=== PATIENT | male | born 1945 | race Caucasian/White ===

== ENCOUNTER → 2021-01-09 | Outpatient (CLI) | payer MEDICARE, BC, SELFPAY | END | disposition home or self-care (01) | LOC: LABSPEC 10:57 | PROVIDERS: PCP Family Medicine; Referring Provider Physician Assistant Surgical; Visit Provider Physician Assistant Surgical | DX: Z11.52 Encounter for screening for COVID-19 (principal) | CPT/HCPCS: 87635; U0005; U0003 ==

== ENCOUNTER → 2022-02-16 | Outpatient (CLI) | payer MEDICARE, BC, SELFPAY ==
--- NOTE | 2022-02-16 | LES_PTH ---
PATIENT: KATI MILLER LOC: [facility] U#:[id number] AGE/SX: 76/M ROOM: RE02/16/[address]: Dr. Mitchell Velasquez MD : 1945 BED: DIS: 02/16/2022 SPEC #: [id number] RECD: 02/16/22 14:55 STATUS: YUE REQuentin #: [id number] TINA: 02/16/22 00:[address]: Mitchell Velasquez DEPT: SURGICAL PATHOLOGY RECD BY: Bernabe Lux ENTERED: 02/19/22 09:34 SP TYPE: Lesion OTHR DR: Dr. Nguyễn Gomez MD Tissues: Skin of eyelid, NOS Procedures: Special Stain Group I Surgery Specimen Level IV GMS Stain (control) HEADER OPERATION: Right upper lid lesion removal PRE-OP DIAGNOSIS: Right upper lid lesion removal TISSUE SUBMITTED: Right upper lid lesion MICROSCOPIC DIAGNOSIS Right upper lid lesion,biopsy: Consistent with inflamed mildly atypical squamous epithelial lesion in the background of cutaneous horn. Negative for malignancy. See comment. /SJ 02/20/22 COMMENT Special stain for fungi is positive for organisms (yeast) in superficial epithelial layers of cutaneous horn; matched control is appropriate. Bacterial colonization is also noted in the superficial epithelial layers of cutaneous horn. Correlation with clinical findings and appropriate follow up are necessary. MICROSCOPIC DESCRIPTION Slides are reviewed. GROSS DESCRIPTION Received is one container labeled with the patient name and designated right upper lid lesion. The specimen consists of two irregular fragments of leger white skin that measuring 0.3 x 0.3 x 0.1 cm and 0.1 x.0.1 x 0.1 cm. The specimen is totally submitted in one cassette. /HERI:gil 02/19/22 TC:5 CPT:55301, 47896
== END | disposition home or self-care (01) ==
LOC: LABSPEC 15:56
PROVIDERS: PCP Family Medicine; Referring Provider Ophthalmology; Visit Provider Ophthalmology
DX: H02.9 Unspecified disorder of eyelid (principal)
CPT/HCPCS: 88305; 88312

== ENCOUNTER → 2022-10-01 | Outpatient (CLI) | payer MEDICARE, BC, SELFPAY ==
[2022-10-01 10:10] LABS: Absolute Lymphocyte Count 1.82 X10^3/uL (0.83-4.51); Absolute Neutrophil Count 3.3 X10^3/uL (2.0-7.7); Basophil# 0.05 X10^3/uL; Basophil% 0.8 % (0-1); Eosinophil# 0.16 X10^3/uL; Eosinophils% 2.7 % (0-5); Hematocrit 44.7 % (40-54); Hemoglobin 14.8 g/dL (13.0-16.5); Lymphocyte # 1.82 X10^3/ul (0.83-4.51); Lymphocyte % 30.8 % (19-41); Mean Corp Hgb Conc 33.1 g/dL (32-36); Mean Corpuscular Hgb 30.5 pg (27.0-32.0); Mean Corpuscular Volume 92.2 fL (80-94); Mean Platelet Vol. 9.2 fl (6.2-12.0); Monocyte# 0.55 X10^3/uL; Monocyte% 9.3 % (0-10); NRBC Flagged by Analyzer 0 % (0-5); Neutrophil # 3.29 X10^3/uL (2.7-7.7); Neutrophil % 55.9 % (47-70); Platelet Count 207 K/mm3 (150-450); RBC Distribution Width CV 13.2 % (11.6-14.6); RBC Distribution Width SD 45.2 fl (35.1-43.9); Red Blood Count 4.85 M/mm3 (4.6-6.2); White Blood Count 5.9 K/mm3 (4.4-11.0)
[2022-10-01 10:34] LABS: Vitamin D,25 Hydroxy 88.7 ng/mL
[2022-10-01 10:49] LABS: ALB/GLOB Ratio 0.9 RATIO (0.9-2.4); AST(SGOT) 16 U/L (15-37); Alanine Aminotransfer ALT/SGPT 20 U/L (16-61); Albumin, Serum 3.4 g/dL (3.2-5.0); Alkaline Phosphatase 80 U/L (45-117); Anion Gap 4 (5-15); BUN 13 mg/dL (7-18); BUN/Creat Ratio 11.7 RATIO (10-20); Chloride 108 mmol/L (98-107); Cholesterol 249 mg/dL (200); Creatinine, Serum 1.11 mg/dL (0.70-1.30); EST Glomerular Filtration Rate 68 mL/min (>60); Est Glom Filt Rate - Afr Amer 83 mL/min (>60); Globulin 3.9 g/dL (2.2-4.2); Glucose 96 mg/dL (74-106); High Density Lipoprotein 55 mg/dL; PSA,Total - Annual Screen 0.68 ng/mL (0.00-4.00); Potassium 3.8 mmol/L (3.5-5.1); Protein, Total 7.3 g/dL (6.4-8.2); Sodium Level 139 mmol/L (136-145); Thyroid Stim Hormone (TSH) 0.87 uIU/mL (0.358-3.74); Triglycerides 75 mg/dL; Very Low Density Lipoprotein 15 mg/dL (5-40)
== END | disposition home or self-care (01) ==
LOC: LAB 08:45
PROVIDERS: PCP Internal Medicine; Referring Provider Internal Medicine; Visit Provider Internal Medicine
DX: E78.5 Hyperlipidemia, unspecified (principal); K21.9 Gastro-esophageal reflux disease without esophagitis; E55.9 Vitamin D deficiency, unspecified; Z12.5 Encounter for screening for malignant neoplasm of prostate
CPT/HCPCS: 36415; 80053; 80061; 82306; 84153; 84443; 85025; G0103

== ENCOUNTER → 2022-10-19 | Outpatient (CLI) | payer MEDICARE, BC, SELFPAY ==
[2022-10-19 10:00] LABS: Cholesterol 222 mg/dL (200); High Density Lipoprotein 56 mg/dL; Thyroid Stim Hormone (TSH) 0.88 uIU/mL (0.358-3.74); Triglycerides 68 mg/dL; Very Low Density Lipoprotein 14 mg/dL (5-40)
[2022-10-25 12:09] LABS: Testosterone, % Free 1.69 % (1.50-4.20); Testosterone, Free 10.31 ng/dL (5.00-21.00); Testosterone, Total 610 ng/dL (264-916)
== END | disposition home or self-care (01) ==
LOC: LAB 08:56
PROVIDERS: PCP Internal Medicine; Referring Provider Internal Medicine; Visit Provider Internal Medicine
DX: R53.83 Other fatigue (principal); E78.5 Hyperlipidemia, unspecified
CPT/HCPCS: 36415; 80061; 84402; 84403; 84443

== ENCOUNTER → 2023-08-08 | Outpatient (CLI) | payer MEDICARE, BC, SELFPAY | END | disposition home or self-care (01) | LOC: LABSPEC 15:18 | PROVIDERS: PCP Internal Medicine; Visit Provider Otolaryngology Otolaryngology/Facial Plastic Surgery | DX: J32.9 Chronic sinusitis, unspecified (principal) | CPT/HCPCS: 87070; 87205 ==

== ENCOUNTER → 2023-10-07 | Outpatient (CLI) | payer MEDICARE, BC, SELFPAY ==
[2023-10-07 09:03] LABS: Absolute Lymphocyte Count 2.41 X10^3/uL (0.83-4.51); Absolute Neutrophil Count 2.7 X10^3/uL (2.0-7.7); Basophil# 0.04 X10^3/uL; Basophil% 0.7 % (0-1); Eosinophils% 3.4 % (0-5); Hemoglobin 14.3 g/dL (13.0-16.5); Lymphocyte # 2.41 X10^3/ul (0.83-4.51); Lymphocyte % 40.4 % (19-41); Mean Corp Hgb Conc 33.3 g/dL (32-36); Mean Corpuscular Hgb 31.2 pg (27.0-32.0); Mean Corpuscular Volume 93.9 fL (80-94); Mean Platelet Vol. 9.3 fl (6.2-12.0); Monocyte# 0.62 X10^3/uL; Monocyte% 10.4 % (0-10); NRBC Flagged by Analyzer 0 % (0-5); Neutrophil # 2.67 X10^3/uL (2.7-7.7); Neutrophil % 44.8 % (47-70); Platelet Count 208 K/mm3 (150-450); RBC Distribution Width CV 13.3 % (11.6-14.6); RBC Distribution Width SD 45.9 fl (35.1-43.9); Red Blood Count 4.58 M/mm3 (4.6-6.2)
[2023-10-07 09:31] LABS: Vitamin D,25 Hydroxy 75.4 ng/mL
[2023-10-07 09:36] LABS: ALB/GLOB Ratio 0.9 RATIO (0.9-2.4); AST(SGOT) 10 U/L (15-37); Alanine Aminotransfer ALT/SGPT 20 U/L (16-61); Albumin, Serum 3.4 g/dL (3.2-5.0); Alkaline Phosphatase 77 U/L (45-117); Anion Gap 4 (5-15); BUN 14 mg/dL (7-18); BUN/Creat Ratio 13.3 RATIO (10-20); Calcium,Total 8.7 mg/dL (8.5-10.1); Chloride 107 mmol/L (98-107); Cholesterol 237 mg/dL (200); Creatinine, Serum 1.05 mg/dL (0.70-1.30); EST Glomerular Filtration Rate 73 mL/min (>60); Est Glom Filt Rate - Afr Amer 88 mL/min (>60); Globulin 3.7 g/dL (2.2-4.2); Glucose 94 mg/dL (74-106); High Density Lipoprotein 54 mg/dL; PSA,Total - Annual Screen 0.71 ng/mL (0.00-4.00); Potassium 3.9 mmol/L (3.5-5.1); Protein, Total 7.1 g/dL (6.4-8.2); Sodium Level 138 mmol/L (136-145); Thyroid Stim Hormone (TSH) 0.92 uIU/mL (0.358-3.74); Triglycerides 84 mg/dL; Very Low Density Lipoprotein 17 mg/dL (5-40)
== END | disposition home or self-care (01) ==
LOC: LAB 08:06
PROVIDERS: PCP Internal Medicine; Referring Provider Internal Medicine; Visit Provider Internal Medicine
DX: E78.5 Hyperlipidemia, unspecified (principal); K21.9 Gastro-esophageal reflux disease without esophagitis; Z13.220 Encounter for screening for lipoid disorders; E55.9 Vitamin D deficiency, unspecified; Z12.5 Encounter for screening for malignant neoplasm of prostate
CPT/HCPCS: 36415; 80053; 80061; 82306; 84153; 84443; 85025; G0103

== ENCOUNTER → 2023-10-11 | Outpatient (CLI) | payer MEDICARE, BC, SELFPAY ==
--- NOTE | 2023-10-11 09:51 | VDLE_ITS ---
Reason For Study: EDEMA RIGHT LEFT GSV is normal. GSV is normal. CFV is compressible, spontaneous, phasic, CFV is compressible, spontaneous, phasic, competent and demonstrates normal competent, and demonstrates normal augmentation. augmentation. FV is compressible, spontaneous, phasic, FV is compressible, spontaneous, phasic, competent and demonstrates normal competent and demonstrates normal augmentation. augmentation. POP V is compressible, spontaneous, phasic, POP V is compressible, spontaneous, phasic, competent and demonstrates normal competent and demonstrates normal augmentation. augmentation. T/P Trunk is compressible. T/P Trunk is compressible. PTV is compressible. PTV is compressible. RT PerV is compressible. LT PerV is compressible. Procedure This is a venous duplex using B-mode, color flow and spectral Doppler. Exam performed in department. A preliminary report was called and/or faxed to Dr. Kelley @ [phone] @ 10:45 am. VL/Venous Duplex US - Richard Extrem Interpretation Summary Deep veins of the bilateral lower extremities are patent and compressible segme ntally. There is no evidence of bilateral lower extremity deep vein thrombosis. The bilateral great saphenous veins appear patent and compressible segmentally. Ordering Physician: Elliot Kelley Referring Physician: Mirian Ayoub Performed By: Amber Santana, CHRISTEN, RVT
--- NOTE | 2023-10-11 09:54 | ART_ITS ---
Reason For Study: PVD Procedure A bilateral lower extremity continuous wave Doppler with analog waveform analysis,segmental pressures,and ankle brachial indexes without exercise. Left Segmental Pressures Left brachial= 136mmHg. Left posterior tibial artery = 156mmHg. Left dorsalis pedis artery = 152mmHg. The left posterior tibial artery waveforms are triphasic. The left dorsalis pedis waveforms are triphasic. Right Segmental Pressures Right brachial= 139mmHg. Right posterior tibial artery = 148mmHg. Right dorsalis pedis artery = 146mmHg. The right posterior tibial artery waveforms are triphasic. The right dorsalis pedis waveforms are triphasic. Indices The right resting ankle brachial index is 1.06. The right ankle brachial index by the posterior tibial artery is 1.06. The right ankle brachial index by the dorsalis pedis is 1.05. The left resting ankle brachial index is 1.12. The left ankle brachial index by the posterior tibial artery is 1.12. The left ankle brachial index by the dorsalis pedis is 1.09. VL/Lower Ext Art Exam w/o Exercis Interpretation Summary Right MARY 1.06, normal. Doppler/PVR waveforms of the right leg normal at rest. Left MARY 1.12, normal. Doppler/PVR waveforms of the left leg normal at rest. Ordering Physician: Elliot Kelley Referring Physician: Mirian Ayoub Performed By: Amber Santana RVT, RDCS
== END | disposition home or self-care (01) ==
LOC: CVS 09:46
PROVIDERS: PCP Internal Medicine; Referring Provider Student in an Organized Health Care Education/Training Program; Visit Provider Student in an Organized Health Care Education/Training Program
DX: I87.2 Venous insufficiency (chronic) (peripheral) (principal); R60.0 Localized edema; I73.89 Other specified peripheral vascular diseases; G60.8 Other hereditary and idiopathic neuropathies
CPT/HCPCS: 93923; 93970

== ENCOUNTER → 2024-03-13 | Outpatient (CLI) | payer MEDICARE, BC, SELFPAY ==
[2024-03-13 10:16] LABS: AST(SGOT) 17 U/L (15-37); Alanine Aminotransfer ALT/SGPT 21 U/L (16-61); Albumin, Serum 3.5 g/dL (3.2-5.0); Alkaline Phosphatase 70 U/L (45-117); Anion Gap 3 (5-15); BUN 10 mg/dL (7-18); BUN/Creat Ratio 9.8 RATIO (10-20); Calcium,Total 9.1 mg/dL (8.5-10.1); Chloride 110 mmol/L (98-107); Cholesterol 235 mg/dL (200); Creatinine, Serum 1.02 mg/dL (0.70-1.30); EST Glomerular Filtration Rate 75 mL/min (>60); Est Glom Filt Rate - Afr Amer 91 mL/min (>60); Globulin 3.5 g/dL (2.2-4.2); Glucose 92 mg/dL (74-106); High Density Lipoprotein 63 mg/dL; Sodium Level 142 mmol/L (136-145); Triglycerides 79 mg/dL; Very Low Density Lipoprotein 16 mg/dL (5-40)
== END | disposition home or self-care (01) ==
LOC: LAB 08:58
PROVIDERS: PCP Internal Medicine; Referring Provider Internal Medicine; Visit Provider Internal Medicine
DX: Z13.220 Encounter for screening for lipoid disorders (principal); E78.5 Hyperlipidemia, unspecified
CPT/HCPCS: 36415; 80053; 80061

== ENCOUNTER → 2024-03-31 | Outpatient (CLI) | payer MEDICARE, BC, SELFPAY ==
--- NOTE | 2024-03-31 08:43 | RAD_ITS ---
STUDY: X-RAY CHEST REASON FOR EXAM: Male, 78 years old. Acute URI TECHNIQUE: PA and lateral views of the chest. COMPARISON: 04/12/2006 FINDINGS: The lungs are clear and expanded. There is no demonstrated pleural abnormality. Normal size heart. Normal mediastinum and lacy. Normal visualized pulmonary arteries. Normal visualized aortic arch and descending thoracic aorta. Normal visualized thoracic spine. Normal visualized ribs, clavicles, and shoulders. There is no demonstrated abnormality of the visualized soft tissue structures of the upper abdomen. RAD/Chest PA and Lateral IMPRESSION: Normal x-ray examination of the chest. Electronically Signed: Trell Moise MD at 14:03 EST ,
[2024-03-31 08:58] LABS: Erythrocyte Sedimentation Rate 3 mm/hr (0-20)
[2024-03-31 09:00] LABS: Absolute Lymphocyte Count 2.05 X10^3/uL (0.83-4.51); Absolute Neutrophil Count 3.7 X10^3/uL (2.0-7.7); Basophil# 0.05 X10^3/uL; Basophil% 0.7 % (0-1); Eosinophil# 0.18 X10^3/uL; Eosinophils% 2.7 % (0-5); Hematocrit 44.2 % (40-54); Hemoglobin 14.7 g/dL (13.0-16.5); Lymphocyte # 2.05 X10^3/ul (0.83-4.51); Lymphocyte % 30.6 % (19-41); Mean Corp Hgb Conc 33.3 g/dL (32-36); Mean Corpuscular Hgb 31.7 pg (27.0-32.0); Mean Corpuscular Volume 95.3 fL (80-94); Mean Platelet Vol. 8.6 fl (6.2-12.0); Monocyte# 0.64 X10^3/uL; Monocyte% 9.6 % (0-10); NRBC Flagged by Analyzer 0 % (0-5); Neutrophil % 55.2 % (47-70); Platelet Count 223 K/mm3 (150-450); RBC Distribution Width CV 13.2 % (11.6-14.6); RBC Distribution Width SD 45.9 fl (35.1-43.9); Red Blood Count 4.64 M/mm3 (4.6-6.2); White Blood Count 6.7 K/mm3 (4.4-11.0)
[2024-03-31 09:15] LABS: ALB/GLOB Ratio 1.1 RATIO (0.9-2.4); AST(SGOT) 12 U/L (15-37); Alanine Aminotransfer ALT/SGPT 16 U/L (16-61); Albumin, Serum 3.9 g/dL (3.2-5.0); Alkaline Phosphatase 76 U/L (45-117); Anion Gap 2 (5-15); BUN 10 mg/dL (7-18); BUN/Creat Ratio 8.9 RATIO (10-20); CRP < 2.90 mg/L (0.0-3.0); Calcium,Total 9.3 mg/dL (8.5-10.1); Chloride 103 mmol/L (98-107); Creatinine, Serum 1.12 mg/dL (0.70-1.30); EST Glomerular Filtration Rate 67 mL/min (>60); Est Glom Filt Rate - Afr Amer 81 mL/min (>60); Globulin 3.7 g/dL (2.2-4.2); Glucose 100 mg/dL (74-106); Potassium 3.9 mmol/L (3.5-5.1); Protein, Total 7.6 g/dL (6.4-8.2); Sodium Level 136 mmol/L (136-145)
== END | disposition home or self-care (01) ==
LOC: LAB 08:33
PROVIDERS: PCP Internal Medicine; Referring Provider Internal Medicine; Visit Provider Internal Medicine
DX: J06.9 Acute upper respiratory infection, unspecified (principal)
CPT/HCPCS: 36415; 71046; 80053; 85025; 85652; 86140

== ENCOUNTER → 2024-05-18 | Outpatient (CLI) | payer MEDICARE, BC, SELFPAY ==
--- NOTE | 2024-05-18 13:19 | STRESSREP ---
Stress Test Report Exercise myocardial perfusion stress test. 79-year-old male with a history of hypertension and fatigue Stress protocol: Resting EKG demonstrates sinus bradycardia with a rate of 48 bpm resting blood pressure is 130/80 mmHg. The patient exercised according to the regular Kush protocol for a total duration of 9 minutes attaining a maximum heart rate of 130 bpm which was 92% of maximum predicted heart rate; the maximum workload was 10.1 metabolic equivalents. At rest there were no ST or T wave changes noted to suggest ischemia and at peak exercise upsloping ST changes only were noted which did not meet the criteria for ischemia. No clinical angina was noted the test was terminated due to the target heart rate being achieved/fatigue. The peak blood pressure was 172/60 mmHg. Rate-pressure product was 22,000. Myocardial perfusion protocol. 11 point mCi of technetium 99m sestamibi was injected at rest. The patient exercised according to regular Kush protocol for total duration of 9 minutes and at peak exercise 34.6 mCi of technetium 99m sestamibi was injected stress images were obtained stress and rest images were reconstructed in comparing the short axis vertical long and horizontal long axis. Gated images were also obtained. Perfusion SPECT analysis: Review of the stress images demonstrate normal uptake of tracer noted in all areas of the myocardium. There is an area in the apex of the ventricle with reduced perfusion which normalizes on rest suggestive of apical ischemia at a high workload. the resting images similarly demonstrate normal uptake of tracer noted in all areas of the myocardium. No previous infarct is noted. Gated SPECT analysis: The gated ejection fraction is 63%. Conclusion: Mildly abnormal exercise myocardial perfusion stress test at a high workload with evidence of apical ischemia Preserved ejection fraction.
== END | disposition home or self-care (01) ==
LOC: CVS 06:24
PROVIDERS: PCP Internal Medicine; Referring Provider Internal Medicine; Visit Provider Internal Medicine
DX: I10 Essential (primary) hypertension (principal); E78.5 Hyperlipidemia, unspecified; R53.83 Other fatigue; R94.31 Abnormal electrocardiogram [ECG] [EKG]
CPT/HCPCS: 78452; 93017; A9500; A4216

== ENCOUNTER → 2024-05-20 | Outpatient (CLI) | payer MEDICARE, BC, SELFPAY ==
[2024-05-20 17:11] LABS: Absolute Neutrophil Count 4.1 X10^3/uL (2.0-7.7); Basophil# 0.04 X10^3/uL; Basophil% 0.6 % (0-1); Eosinophil# 0.14 X10^3/uL; Hematocrit 41.6 % (40-54); Lymphocyte % 28.7 % (19-41); Mean Corp Hgb Conc 33.7 g/dL (32-36); Mean Corpuscular Hgb 31.7 pg (27.0-32.0); Mean Corpuscular Volume 94.3 fL (80-94); Mean Platelet Vol. 8.8 fl (6.2-12.0); Monocyte# 0.64 X10^3/uL; Monocyte% 9.2 % (0-10); NRBC Flagged by Analyzer 0 % (0-5); Neutrophil # 4.12 X10^3/uL (2.7-7.7); Neutrophil % 59.1 % (47-70); Platelet Count 213 K/mm3 (150-450); RBC Distribution Width CV 12.9 % (11.6-14.6); Red Blood Count 4.41 M/mm3 (4.6-6.2)
[2024-05-20 17:32] LABS: Anion Gap 5 (5-15); BUN 14 mg/dL (7-18); BUN/Creat Ratio 12.8 RATIO (10-20); Calcium,Total 9.2 mg/dL (8.5-10.1); Chloride 102 mmol/L (98-107); Creatinine, Serum 1.09 mg/dL (0.70-1.30); EST Glomerular Filtration Rate 69 mL/min (>60); Est Glom Filt Rate - Afr Amer 84 mL/min (>60); Glucose 97 mg/dL (74-106); Potassium 4.1 mmol/L (3.5-5.1); Sodium Level 135 mmol/L (136-145)
== END | disposition home or self-care (01) ==
LOC: LAB 16:36
PROVIDERS: PCP Internal Medicine; Referring Provider Internal Medicine Cardiovascular Disease; Visit Provider Internal Medicine Cardiovascular Disease
DX: R94.39 Abnormal result of other cardiovascular function study (principal)
CPT/HCPCS: 36415; 80048; 85025

== ENCOUNTER 2024-05-22 07:59 | Day surgery (SDC) | payer MEDICARE, BC, SELFPAY ==
[2024-05-21 09:54] VITALS: BMI 24.3
--- NOTE | 2024-05-22 15:42 | CL.D_ITS ---
Patient Name: KATI MILLER Study Date: 05/22/2024 Performing: Robby Hastings MD Ht: 70 inches 177.8 cm : 1945 Wt: 170.2 lbs 77.11 kg Age: 79 Gender: male BSA: 1.95 PROCEDURE(S) PERFORMED DC01-(02390)LHC/COR/LV CLINICAL PROFILE AND INDICATIONS Indications: Suspected CAD Heart Failure: None Stress/Imaging Date: 05/13/24 CAD Presentations: Stable angina. CONCLUSIONS Non obstructive coronary arteries Normal LV size, wall motion,and systolic function RECOMMENDATIONS Medical therapy DESCRIPTION OF PROCEDURE The patient arrived to the procedure lab. The risks and benefits of the procedure as well as a full description of our services here and current unavailability of surgical backup were fully explained to the patient and/or their significant other prior to the catheterization. The Timeout was completed, verifying the correct patient and procedure. The patient's procedural site was prepped and draped in the usual fashion. Local anesthetic was given subcutaneously to right groin region with Lidocaine 2%. Using a modified Seldinger technique, arterial access was obtained via the right radial artery, a 6Fr sheath was inserted. Left Coronary Artery selective angiography was performed in multiple views using a 5 Fr. 4.0 [place] catheter. Right Coronary Artery selective angiography was then performed in multiple views using a 5 Fr. 4.0 [place] catheter. Left Ventriculography was performed in PHAN projection using a 5 Fr. Pigtail catheter. LV to AO pullback pressures were then recorded.The arterial sheath was pulled and a TR Band was applied for hemostasis 10 ml of air CORONARY ANGIOGRAPHY DOMINANCE: Right Dominant LEFT HEART ASSESSMENT Left Ventricular Ejection Fraction: by LV Gram 70 % Normal LV wall motion Normal Left Ventricular systolic function LEFT MAIN: Angiographically normal LEFT ANTERIOR DESCENDING ARTERY: Mild luminal irregularities less than 30% CIRCUMFLEX ARTERY: Mild luminal irregularities RIGHT CORONARY ARTERY: Angiographically normal COMPLICATIONS No Complications PROCEDURE MEDICATIONS Fentanyl 50 mcg IV Versed 1 mg IV Versed 1 mg IV Oxygen: 2 L/min via nasal cannula Aspirin (325mg) 1 Tabs PO @ 05/22/2024 08:15:47 Heparin given IA 05/22/2024 09:42:28 SUMMARY OF HEMODYNAMIC DATA Time AIR REST ECG 08:18:09 AO 133/54 (74) SA 09:53:34 AO 111/63 (81) 09:54:16 LV 124/3, 9 09:58:01 LV 129/8, 12 09:58:09 LV 129/12, 23 09:58:37 LV 124/10, 14 09:58:45 LVp 121/9, 13 09:58:49 AOp 115/61 (83) 09:58:56 Signed By Robby Hastings MD On 05/22/2024 15:41:56 Robby Hastings MD
== END 2024-05-22 11:59 | disposition home or self-care (01) ==
PROVIDERS: PCP Internal Medicine; Referring Provider Internal Medicine Cardiovascular Disease; Visit Provider Internal Medicine Cardiovascular Disease
DX: I20.9 Angina pectoris, unspecified (principal); R06.02 Shortness of breath; I10 Essential (primary) hypertension; E78.5 Hyperlipidemia, unspecified; R94.39 Abnormal result of other cardiovascular function study; K21.9 Gastro-esophageal reflux disease without esophagitis; Z79.899 Other long term (current) drug therapy
CPT/HCPCS: 93458; 99152; 99153; Q9967; C1769; C1894

== ENCOUNTER → 2024-10-16 | Outpatient (CLI) | payer MEDICARE, BC, SELFPAY ==
--- OUTSIDE RECORDS SUMMARY | 2024-10-16 09:02 | XMS RPT_ITS | CCD ---
Author Organization [facility] CliniSyct Care Team Providers Care Applications Systems Analyst Name Role Phone Florentin Arceo MD Primary Care Provider [phone] Dr. Mirian Ayoub Primary Care Provider Dr. Mirian Ayoub Attending Provider [phone] Unavailable Primary Care Provider Unavaildora Ayoub MD, Dr. Vela Primary Care Provider [phone] Dr. Mirian Ayoub MD Referring Provider Venkata WELLINGTON, Dr. Bustamante Attending Provider Dr. Robby Hastings MD Referring Provider Dr. Mirian Ayoub MD Attending Provider Mirian Ayoub Attending Unavailable Mega, Mirian Primary Care Unavailable Mega, Mirian Attending Unavailable Mega, Mirian Primary Care Unavailable MegaMirian Attending Unavailable Mega, Mirian Referring Unavailable Mega, Mirian Primary Care Unavailable Mega, Mirian Primary Care Unavailable Venkata, Robby Referring Unavailable Venkata, Robby Attending Unavailable Elliot Kelley Referring Unavailable Mega, Mirian Primary Care Unavailable Jon Melton Attending Unavailable Mega, Mirian Primary Care Unavailable MegaMirian Consulting Unavailable Venkata, Robby Attending Unavailable Mega, Mirian Referring Unavailable Mega, Mirian Referring Unavailable Austin Solano Attending Unavailable Mega, Mirian Primary Care Unavailable Mega, Mirian Primary Care Unavailable Venkata, [place] Attending Unavailable Venkata, [place] Referring Unavailable Mega, Mirian Primary Care Unavailable MegaMirian Attending Unavailable Mega, Mirian Referring Unavailable Mega, Mirian Primary Care Unavailable Mega, Mirian Attending Unavailable Mega, Mirian Referring Unavailable Mega, Mirian Primary Care Unavailable Mega, Mirian Attending Unavailable Mega, Mirian Attending Unavailable Mega, Mirian Referring Unavailable Mega, Mirian Primary Care Unavailable Mega, Mirian Referring Unavailable Mega, Mirian Attending Unavailable Mega, Mirian Primary Care Unavailable Elliot Kelley Referring Unavailable Elliot Kelley Attending Unavailable Mega, Mirian Primary Care Unavailable Mega, Mirian Primary Care Unavailable Mega, Mirian Attending Unavailable Mega, Mirian Primary Care Unavailable Mega, Mirian Attending Unavailable Mega, Mirian Primary Care Unavailable Venkata, [place] Attending Unavailable Mega, Mirian Referring Unavailable Mega, Mirian Attending Unavailable Mega, Mirian Primary Care Unavailable Mega, Mirian Attending Unavailable Mega, Mirian Primary Care Unavailable Allergies Allergy Classification Reported Allergen(s) Allergy Type Date of Onset Reaction(s) Facility (2 sources) Amitriptyline Drug Allergy 9 [facility] Work Phone: (2 sources) Citalopram Drug Allergy 7 Diarrhea [facility] (2 sources) cyclobenzaprine Drug Allergy 9 [facility] Work Phone: (2 sources) DULoxetine Drug Allergy 9 [facility] Work Phone: (2 sources) gabapentin Drug Allergy 7 [facility] (2 sources) meloxicam Drug Allergy 9 [facility] Work Phone: (2 sources) metaxalone Drug Allergy 9 [facility] Work Phone: (2 sources) pregabalin Drug Allergy 7 Intolerance [facility] (2 sources) Propoxyphene N-Acetaminophen Propensity to adverse reactions 9 [facility] Work Phone: [phone] Medications Current Medications Medication Drug Class(es) Dates Sig (Normalized) Sig (Original) acetaminophen 500 mg oral tablet (5 sources) Start: 04-04-2022 take 1 tablet by mouth every six hours as needed for pain Acetaminophen (Tylenol Extra Strength) 500 mg tablet Active 500 mg PO EVERY 6 HOURS as needed for fever or pain April 04, 2022 1:00am Acetaminophen 50 0 mg cap Take 500 mg by mouth as needed. 0 Active Comment on above: Take 500 mg by mouth as needed. atorvastatin 10 mg oral tablet (3 sources) HMG-CoA Reductase Inhibitor Start: 2 take 0.5 tablet by mouth three times weekly atorvastatin (LIPITOR) 10 mg tablet Indications: Mixed hyperlipidemia TAKE ONE-HALF TABLET BY MOUTH 3 TIMES A WEEK 18 tablet 3 12/25/2021 Active Start: 11-24-2021 take 0.5 tablet by m outh three times weekly atorvastatin (LIPITOR) 10 mg tablet Indications: Mixed hyperlipidemia TAKE ONE-HALF TABLET BY MOUTH 3 TIMES A WEEK 18 tablet 3 11/24/2021 Active Start: 12-19-2020 End: 11-23-2021 take 0.5 tablet by mouth three times weekly atorvastatin (LIPITOR) 10 mg tablet Indications: Mixed hyperlipidemia TAKE ONE-HALF TABLET BY MOUTH 3 TIMES A WEEK 18 tablet 3 12/19/2020 11/23/2021 Discontinued Comment on above: TAKE ONE-HALF TABLET BY MOUTH 3 TIMES A WEEK betaine hydrochloride 162 mg / bromelains 125 mg / pancreatin 250 mg / papain 125 mg / pepsin a 65 mg oral capsule (1 source) Methylating Agent Start: 5 Pancreat-Bet Lqy-Vra-Uiwl-Pap (Super Enzyme) 531-771-30-125 mg capsule Active NMA PO DAILY May 20, 2024 1:00am betamethasone 0.5 mg/ml / clotrimazole 10 mg/ml topical cream (1 source) Azole Antifungal, Corticosteroid Start: 4 Clotrimazole-Bet amethasone 1-0.05 % cream Active 1 NMA TOPICAL TWICE A DAY March 18, 2024 1:00am calcium carb/magnesium ox,carb (LENO-MAG ORAL) (2 sources) take 2 tablets by mouth once daily at bedtime calcium carb/magnesium ox,carb (LENO-MAG ORAL) Take 2 tablets by mouth daily at bedtime. Active take 2 tablets by mo uth once daily at bedtime calcium carb/magnesium ox,carb (LENO-MAG ORAL) Take 2 tablets by mouth daily at bedtime. 0 Active Comment on above: Take 2 tablets by mo uth daily at bedtime. Chondroitin Sulfates / Glucosamine (6 sources) Start: 04-04-2022 osteo biflex Active PO 2 times daily April 04, 2022 1:00am Start: 01-23-2007 Glucosamine-Ch ondroit-Vit C-Mn (GLUCOSAMINE 1500 COMPLEX) 500-400 mg ORAL Cap 0 01/23/2007 Active Fish Oils (4 sources) Start: 04-04-2022 fish oil Activ e PO 1 time daily April 04, 2022 1:00am lactobacillus combination no.8 (ADULT PROBIOTIC) 3 billion cell cap (2 sources) Start: 08-08-2015 lactobacillus combination no.8 (ADULT PROBIOTIC) 3 billion cell cap Take 1 capsule by mouth once daily. 0 08/08/2015 Active Comment on above: Take 1 capsule by mo [facility] once daily. [place]-3 Fatty Acids (EPA) 500 mg ORAL Cap (2 sources) Start: 01-23-2007 [place]-3 Fatty Acids (EPA) 500 mg ORAL Cap Take by mouth. 0 01/23/2007 Active Comment on above: Take by mouth. polyethylene glycol 3350 18440 mg powder for oral solution (1 source) Osmotic Laxative Start: 03-18-2024 Polyethylene Glycol 3350 (Miralax) 17 gram/dose powder Active 4 g PO daily March 18, 2024 1:00am traZODone hydrochloride 100 mg oral tablet (13 sources) Serotonin Reuptake Inhibitor Start: 10-15-2022 End: 05-28-2024 Trazodone 100 mg tablet Active 50 mg PO DAILY May 28, 2024 10:00am Start: 10-15-2022 End: 04-15-2023 take 50 mg by mouth once daily Trazodone Active 50 MG PO DAILY April 15, 2023 12:06pm Start: 04-04-2022 End: 10-15-2022 take 1 tablet by mouth once daily Trazodone 50 mg tablet Discontinued 50 mg PO DAILY April 04, 2022 1:00am October 15, 2022 9:00am Start: 12-25-2021 take 1 tablet by gwen once daily at bedtime traZODone (DESYREL) 100 mg tablet Indications: Insomnia, unspecified type Take 1 tablet by mouth daily at bedtime. 90 tablet 3 12/25/2021 Active Start: 12-19-2020 take 1 tablet by gwen th once daily at bedtime traZODone (DESYREL) 100 mg tablet Indications: Insomnia, unspecified type Take 1 tablet by mouth daily at bedtime. 90 tablet 3 12/19/2020 Active Comment on above: Take 1 tablet by gwen th daily at bedtime. vit K2 with D3 (4 sources) Start: 04-04-2022 vit K2 with D3 Active PO 1 time daily April 04, 2022 1:00am Vitamin B Comp And C No.3 (B Complex Plus Vitamin C) 67-97-97-5-300 mg capsule (1 source) Start: 10-17-2023 Vitamin B Comp And C No.3 (B Complex Plus Vitamin C) 24-08-07-5-300 mg capsule Active 1 NMA PO DAILY October 17, 2023 12:00am give with food (meal/snack) Completed/Discontinued Medications Medication Drug Class(es) Dates Sig (Normalized) Sig (Original) aspirin 81 mg chewable tablet (4 sources) Platelet Aggregation Inhibitor, Nonsteroidal Anti-inflammatory Drug Start: 07-04-2013 End: 04-04-2022 take 1 tablet by mouth once daily Aspirin 81 MG tablet,chewable Discontinued 81 mg PO DAILY@0800 July 04, 2013 12:00am April 04, 2022 5:00pm azithromycin 250 mg oral tablet (2 sources) Macrolide Antimicrobial Start: 05-28-2024 End: 07-02-2024 Azithromycin 250 mg tablet Discontinued 0 PO .COMPLEX May 28, 2024 1:00am July 02, 2024 9:02am For 250 mg dose pack: take 500 mg today (day 1), then 250 mg for 4 days (days 2-5) PO Start: 03-25-2024 End: 05-19-2024 Azithromycin (Zithromax) 250 mg tablet Discontinued 0 PO .COMPLEX March 25, 2024 1:00am May 19, 2024 1:08pm For 250 mg dose pack: take 500 mg today (day 1), then 250 mg for 4 days (days 2-5) PO cephalexin 500 mg oral capsule (4 sources) Cephalosporin Antibacterial Start: 07-04-2013 End: 04-04-2022 take 1 capsule by mouth twice daily Cephalexin (Keflex) 500 MG capsule Discontinued 500 mg PO TWICE A DAY July 04, 2013 12:00am April 04, 2022 5:01pm fluorouracil 50 mg/ml topical cream (1 source) Nucleoside Metabolic Inhibitor Start: 12-19-2020 Fluorouracil 5 % cream Apply to affected area twice daily. To back of scalp for 2 weeks, as directed. 0 12/19/2020 Active Comment on above: Apply to affected ar ea twice daily. To back of scalp for 2 weeks, as directed. hydroCHLOROthiazide 12.5 mg / lisinopril 10 mg oral tablet (1 source) Thiazide Diuretic, Angiotensin Converting Enzyme Inhibitor Start: 05-14-2024 End: 05-28-2024 Lisinopril-[place] chlorothiazide 10-12.5 mg tablet Discontinued 1 {tbl} PO daily May 14, 2024 1:00am May 28, 2024 10:01am ibuprofen 200 mg oral tablet (1 source) Nonsteroidal Anti-inflammatory Drug take 1 tablet by mouth every six hours as needed ibuprofen (MOTRIN) 200 mg tablet Take 200 mg by mouth every 6 hours as needed. 0 Active Comment on above: Take 200 mg by mouth every 6 hours as needed. lidocaine 0.05 mg/mg medicated patch (1 source) Antiarrhythmic, Amide Local Anesthetic Start: 12-19-2020 lidocaine (LIDODERM) 5 % Indications: Inguinodynia, right Apply 1 application as directed once daily as needed (as directed.). Remove old patch prior to placing new patch. Location: right groin. 15 Patch 0 12/19/2020 Active Comment on above: Apply 1 application as directed once daily as needed (as directed.). Remove old patch prior to placing new patch. Location: right groin. lisinopril 10 mg oral tablet (1 source) Angiotensin Converting Enzyme Inhibitor Start: 05-28-2024 End: 09-16-2024 take 1 tablet by mouth once daily Lisinopril 10 mg tablet Discontinued 10 mg PO daily May 28, 2024 1:00am September 16, 2024 8:05am multivitamin (DAILY MULTIVITAMIN) ORAL Tab (1 source) Start: 01-23-2007 multivitamin (DAILY MULTIVITAMIN) ORAL Tab pravastatin sodium 20 mg oral tablet (4 sources) HMG-CoA Reductase Inhibitor Start: 07-04-2013 End: 04-04-2022 Pravastatin Sodium 20 MG tablet Discontinued 20 mg AT BEDTIME July 04, 2013 12:00am April 04, 2022 5:01pm Start: 07-04-2013 End: 04-04-2022 Pravastatin Sodium Discontin ued 20 MG AT BEDTIME July 04, 2013 12:00am April 04, 2022 5:01pm probiotic (6 sources) Start: 04-15-2023 End: 10-17-2023 probiotic Discontinued PO [facility] 2023 1:00am October 17, 2023 8:04am Start: 04-15-2023 probiotic Acti ve PO April 15, 2023 1:00am Start: 04-04-2022 End: 10-15-2022 probiotic Discontinued PO 1 time daily April 04, 2022 1:00am October 15, 2022 8:35am Start: 04-04-2022 probiotic Acti ve PO 1 time daily April 04, 2022 1:00am pseudoephedrine hydrochloride 30 mg oral tablet (1 source) alpha-Adrenergic Agonist take 1 tablet by mouth every four hours as needed pseudoephedrine (SUDAFED) 30 mg tablet Take 30 mg by mouth every 4 hours as needed. 0 Active Comment on above: Take 30 mg by mouth every 4 hours as needed. raNITIdine 150 mg oral tablet (4 sources) Histamine-2 Receptor Antagonist Start: 014 End: take 1 tablet by mouth twice daily Ranitidine (Zantac) 150 MG tablet Discontinued 150 mg PO TWICE A DAY July 04, 2013 12:00am April 04, 2022 5:01pm Testosterone (4 sources) Androgen Start: 013 End: Testosterone (Androgel) 2.5 GM gel in packet Discontinued 2.5 g TD January 09, 2013 12:00am April 04, 2022 5:01pm Start: 01-09-2013 End: 04-04-2022 Testosterone (Androgel) 2.5 GM gel in packet Discontinued 2.5 GM TD January 09, 2013 12:00am April 04, 2022 5:01pm Zinc Acetate (1 source) Start: 05-20-2024 End: 09-16-2024 zinc acetate Discontinued 1 NMA PO DAILY May 20, 2024 1:00am September 16, 2024 8:07am zolpidem tartrate 5 mg oral tablet (4 sources) gamma-Aminobuty merrick Acid-ergic Agonist Start: 01-09-2013 End: 04-04-2022 take 2 tablets by mouth at bedtime as needed for sleep Zolpidem 5 MG tablet Discontinued 10 mg PO AT BEDTIME NEEDED as needed for Sleep January 09, 2013 12:00am April 04, 2022 5:01pm Start: 01-09-2013 End: 04-04-2022 take 10 mg by mouth at bedtime as needed Zolpidem Discontinued 10 MG PO AT BEDTIME NEEDED January 09, 2013 12:00am April 04, 2022 5:01pm Problems Active Problems Problem Classification Problem Date Documented Da te Episodic/Chronic Administrative/social admission (3 sources) Patient encounter status; Translations: [Persons encountering health services in other specified circumstances] 04-18-2022 Episodic Allergic reactions (2 sources) Contact dermatitis; Translations: [Unspecified contact dermatitis due to other agents] Onset: 8 Resolved: 5 04-03-2021 Episodic Blindness and vision defects (1 source) Disorder of vision; Translations: [Unspecified visual loss] 05-19-2024 Chronic Calculus of urinary tract (2 sources) Kidney stone; Translations: [Calculus of kidney] Resolved: 5 04-03-2021 Episodic Coronary atherosclerosis and other heart disease (1 source) Angina pectoris, unspecified; Translations: [Angina pectoris, unspecified] Onset: 5 Chronic Disorders of lipid metabolism (11 sources) Mixed hyperlipidemia; Translations: [Mixed hyperlipidemia] Onset: 8 Chronic Esophageal disorders (8 sources) Gastroesophageal reflux disease; Translations: [Gastro-esophageal reflux disease without esophagitis] Onset: 5 Resolved: 1 04-18-2022 Chronic Essential hypertension (6 sources) Hypertensive disorder; Translations: [Essential (primary) hypertension] Onset: 5 05-12-2024 Chronic Headache; including migraine (2 sources) Headache; Translations: [New onset headache] 07-02-2024 Episodic Headache; including migraine (2 sources) Headache; including migraine; Translations: [Headache, unspecified] Onset: 5 Hyperplasia of prostate (2 sources) Benign prostatic hyperplasia; Translations: [Benign prostatic hyperplasia without lower urinary tract symptoms] Onset: 7 06-06-2017 Chronic Immunizations and screening for infectious disease (2 sources) Needs influenza immunization; Translations: [Encounter for immunization] 02-25-2023 Episodic Nutritional deficiencies (1 source) Vitamin D deficiency, unspecified; Translations: [Vitamin D deficiency, unspecified] Onset: 5 Chronic Other ear and sense organ disorders (4 sources) Pain of ear structure; Translations: [Otalgia, bilateral] 05-02-2022 Episodic Other ear and sense organ disorders (4 sources) Impacted cerumen; Translations: [Impacted cerumen, bilateral] 05-02-2022 Episodic Other endocrine disorders (3 sources) Male hypogonadism; Translations: [Testicular hypofunction] Onset: 8 Resolved: 8 12-11-2018 Chronic Other endocrine disorders (1 source) Hypogonadism 05-19-2024 Chronic Other gastrointestinal disorders (1 source) Finding of frequency of defecation; Translations: [Change in bowel habit] 05-19-2024 Episodic Other gastrointestinal disorders (1 source) Abdominal bloating; Translations: [Abdominal distension (gaseous)] 05-19-2024 Episodic Other male genital disorders (2 sources) Male erectile dysfunction, unspecified; Translations: [Impotence of organic origin] Onset: 7 12-04-2016 Chronic Other screening for suspected conditions (not mental disorders or infectious disease) (6 sources) Cardiovascular stress test abnormal; Translations: [Abnormal result of other cardiovascular function study] Onset: 5 05-19-2024 Episodic Other skin disorders (1 source) Eruption; Translations: [Rash and other nonspecific skin eruption] 05-19-2024 Episodic Past or Other Problems Problem Classification Problem Date Documented Date Episodic/Chronic Abdominal hernia (2 sources) Umbilical hernia; Translations: [Umbilical hernia without obstruction or gangrene] Onset: 04-09-2006 Resolved: 05-23-2009 05-23-2009 Episodic Abdominal pain (3 sources) Right inguinal pain; Translations: [Right lower quadrant pain] Onset: 07-23-2006 Resolved: 05-23-2009 12-19-2020 Episodic Adjustment disorders (1 source) Adjustment disorder; Translations: [Adjustment disorder, unspecified] Onset: 11-27-2006 Resolved: 02-03-2015 02-03-2015 Chronic Malaise and fatigue (8 sources) Fatigue; Translations: [Other fatigue] Onset: 06-02-2024 10-02-2022 Episodic Other diseases of veins and lymphatics (1 source) Venous insufficiency (chronic) (peripheral); Translations: [Venous insufficiency (chronic) (peripheral)] Onset: 10-19-2023 Episodic Other endocrine disorders (1 source) Testicular hypofunction; Translations: [Testicular hypofunction] Onset: 07-27-2010 Resolved: 02-03-2015 02-03-2015 Chronic Other male genital disorders (1 source) Disorder of male genital organ; Translations: [Disorder of male genital organs, unspecified] Onset: 02-10-2008 Resolved: 05-23-2009 05-23-2009 Episodic Other skin disorders (2 sources) Actinic keratosis; Translations: [Actinic keratosis] Onset: 12-04-2016 12-04-2016 Episodic Other upper respiratory disease (1 source) Allergic rhinitis; Translations: [Allergic rhinitis, unspecified] Resolved: 02-03-2015 02-03-2015 Chronic Other upper respiratory infections (3 sources) Acute upper respiratory infection; Translations: [Acute upper respiratory infection, unspecified] Onset: 04-30-2024 05-19-2024 Episodic Residual codes; unclassified (2 sources) Insomnia; Translations: [Insomnia, unspecified] Onset: 06-19-2007 02-03-2015 Episodic Residual codes; unclassified (2 sources) Reduced libido; Translations: [Decreased libido] Onset: 07-13-2016 07-13-2016 Episodic Spondylosis; intervertebral disc disorders; other back problems (2 sources) Low back pain; Translations: [Lumbago] Onset: 07-30-2006 04-03-2021 Episodic Unclassified (4 sources) Hypogonadism; Translations: [Hypogonadism] Onset: 05-23-2009 Resolved: 02-03-2015 10-15-2022 Results Test Name Value Interpretation Reference Range Facility MR/Moe 09-16-2024 MR/STEVEN.VIRI [facility] [address] [place] [id number] OFFICE VISIT Date of Service: 09/16/24 MR#: [id number] Acct: [id number] Name: KATI MEDLEY Rep #: [id number] : 1945 Provider: Dr. 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 Accompanied by: Self Is patient in pain?: No Allergies No Known Allergies Allergy (Verified 09/16/24 08:01) Medications ???Medication ???Instructions ???Recorded ???Confirmed ???Type acetaminophen 500 mg tablet 500 mg PO Q6H PRN fever or pain 09/16/24 History (Tylenol Extra Strength) fish oil PO 1XD 04/04/22 09/16/24 History osteo biflex PO 2XD 04/04/22 09/16/24 History vit K2 with D3 PO 1XD 04/04/22 09/16/24 History vitamin B comp and C no.3 15 mg-10 1 cap PO DAILY 10/17/23 09/16/24 History mg-50 mg-5 mg-300 mg capsule (B Complex Plus Vitamin C) clotrimazole-betameth asone 1 1 applic topical BID #15 grams 03/0109/16/24 Rx %-0.05 % topical cream polyethylene glycol 3350 17 4 g PO QDAY 03/18/24 09/16/24 Hist ory gram/dose oral powder (Miralax) Pancreat-Bet FQx-nhl-pmbe-pap 250 cap PO DAILY 05/20/24 09/16/24 Hi story mg-162 mg-65 mg-125 mg capsule (Super Enzyme) trazodone 100 mg tablet 50 mg (1/2 x 100 mg) PO DAILY #45 02/20/25 06/11/25 Rx tabs Have you fallen in the past year?: No PFSH Medical History New onset headache Abnormal stress test Hypogonadism Fatigue Hyperlipemia Hypertension Environmental allergies Vision problems GERD (gastroesophageal reflux disease) Kidney stones Surgical History History of hernia surgery Family History Father Cancer internal organs Mother Cancer liver Grandmother Cancer maternal , throat Social History adopted: No household members: spouse housing: condominium current occupational status: employed 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 He is actually been seen several times over the last 6 months, as per the chart. He was experiencing what appeared to be respiratory illness, viral syndrome through the fall and winter. Ultimately however due to ongoing fatigue, tiredness, exertional dyspnea, we proceeded to stress test which was abnormal but heart catheterization did not show any significant obstructive disease fortunately. He has mild hypertension, was on lisinopril 10 mg daily, but stopped on own due to cough. BP AVG at home approx. 130/70. He also uses trazodone 50 mg p.o. nightly as needed for sleep. Walking about 2 miles daily, or will do more physical work daily. Has been following with ENT for long-term, receiving allergy injections. When he was there recently, for his visit, he noted to them that he was having some congestion, frontal headache. They ended up scheduling a procedure and he had apparently balloon dilatation of the sinus openings, with some drainage. Overall he actually feels better he states. Still sounds nasally and congested but less pressure in the forehead he states. Review of systems per chart. Physical exam. Vital signs on chart. EOMI. PERRLA. Sclera are clear. TMs are unremarkable with normal light reflexes. Canals are unremarkable. Posterior pharynx is unremarkable. Good dentition. No cervical or supraclavicular lymph nodes enlarged or tender. No clear thyromegaly. No thyroid nodules readily palpable. Lungs are without wheeze, rhonchi, rales. No E/A changes are heard. Heart is regular. Not tachycardic. No clear murmur, rub, or gallop is identified. The abdomen is soft. Bowel isaura (more content not included)... Normal [facility] CBC W/Diff, Automatedon 04-0 2-2024 Absolute Neut Normal 2.0-7.7 [facility] Comment on above: Result Comment: [facility] DID NOT HAVE LABS Performed By: #### L 500.4050, L100.0100 ####[facility] [id number] [place], [address] HCT Normal 40-54 [facility] Comment on above: Result Comment: [facility] DID NOT HAVE LABS Performed By: #### L 500.4050, L100.0100 ####[facility] [id number] [place], [address] HGB Normal 13.0-16.5 [facility] Comment on above: Result Comment: [facility] DID NOT HAVE LABS Performed By: #### L 500.4050, L100.0100 ####[facility] [id number] [place], [address] MCH Normal 27.0-32.0 [facility] Comment on above: Result Comment: [facility] DID NOT HAVE LABS Performed By: #### L 500.4050, L100.0100 ####[facility] [id number] [place], [address] MCHC Normal 32-36 [facility] Comment on above: Result Comment: [facility] DID NOT HAVE LABS Performed By: #### L 500.4050, L100.0100 ####[facility] [address] [place], [address] MCV Normal 80-94 [facility] Comment on above: Result Comment: [facility] DID NOT HAVE LABS Performed By: #### L 500.4050, L100.0100 ####[facility] [address] [place], [address] NEUT% Normal 47-70 [facility] Comment on above: Result Comment: [facility] DID NOT HAVE LABS Performed By: #### L 500.4050, L100.0100 ####[facility] [address] [place], [address] PLT Normal 150-450 [facility] Comment on above: Result Comment: [facility] DID NOT HAVE LABS Performed By: #### L 500.4050, L100.0100 ####[facility] [address] [place], [address] RBC Normal 4.6-6.2 [facility] Comment on above: Result Comment: [facility] DID NOT HAVE LABS Performed By: #### L 500.4050, L100.0100 ####[facility] [address] [place], [address] RDW CV Normal 11.6-14.6 [facility] Comment on above: Result Comment: [facility] DID NOT HAVE LABS Performed By: #### L 500.4050, L100.0100 ####[facility] [address] [place], [address] RDW SD Normal 35.1-43.9 [facility] Comment on above: Result Comment: [facility] DID NOT HAVE LABS Performed By: #### L 500.4050, L100.0100 ####[facility] [address] [place], [address] WBC Normal 4.4-11.0 [facility] Comment on above: Result Comment: [facility] DID NOT HAVE LABS Performed By: #### L 500.4050, L100.0100 ####[facility] [address] [place], [address] Comprehensive Metabolic Prof ilon 07-08-2024 ALB Normal 3.4-4.8 [facility] Comment on above: Result Comment: [facility] DID NOT HAVE LABS Performed By: #### L 500.4050, L100.0100 ####[facility] [address] [place], [address] ALK PHOS Normal 40-129 [facility] Comment on above: Result Comment: [facility] DID NOT HAVE LABS Performed By: #### L 500.4050, L100.0100 ####[facility] [address] [place], [address] ALT Normal <=46 [facility] Comment on above: Result Comment: [facility] DID NOT HAVE LABS Performed By: #### L 500.4050, L100.0100 ####[facility] [address] [place], [address] AST Normal <=37 [facility] Comment on above: Result Comment: [facility] DID NOT HAVE LABS Performed By: #### L 500.4050, L100.0100 ####[facility] [address] [place], [address] BUN Normal 4-19 [facility] Comment on above: Result Comment: [facility] DID NOT HAVE LABS Performed By: #### L 500.4050, L100.0100 ####[facility] [address] [place], [address] BUN/CRE Normal 10-20 [facility] Comment on above: Result Comment: [facility] DID NOT HAVE LABS Performed By: #### L 500.4050, L100.0100 ####[facility] [address] [place], [address] Calcium Normal 7.6-11.0 [facility] Comment on above: Result Comment: [facility] DID NOT HAVE LABS Performed By: #### L 500.4050, L100.0100 ####[facility] [address] [place], [address] CL Normal 98-108 [facility] Comment on above: Result Comment: [facility] DID NOT HAVE LABS Performed By: #### L 500.4050, L100.0100 ####[facility] [address] [place], [address] CO2 Normal 21.0-32.0 [facility] Comment on above: Result Comment: [facility] DID NOT HAVE LABS Performed By: #### L 500.4050, L100.0100 ####[facility] [address] [place], [address] CREAT,SERUM Normal 0.70-1.20 [facility] Comment on above: Result Comment: [facility] DID NOT HAVE LABS Performed By: #### L 500.4050, L100.0100 ####[facility] [address] [place], [address] eGFR Normal >60 [facility] Comment on above: Result Comment: [facility] DID NOT HAVE LABS Performed By: #### L 500.4050, L100.0100 ####[facility] [address] [place], [address] GAP Normal 5-15 [facility] Comment on above: Result Comment: [facility] DID NOT HAVE LABS Performed By: #### L 500.4050, L100.0100 ####[facility] [address] [place], [address] GLU Normal 70-99 [facility] Comment on above: Result Comment: [facility] DID NOT HAVE LABS Performed By: #### L 500.4050, L100.0100 ####[facility] [address] [place], [address] Potassium Normal 3.3-5.1 [facility] Comment on above: Result Comment: [facility] DID NOT HAVE LABS Performed By: #### L 500.4050, L100.0100 ####[facility] [address] [place], [address] T BILI Normal 0.00-1.30 [facility] Comment on above: Result Comment: [facility] DID NOT HAVE LABS Performed By: #### L 500.4050, L100.0100 ####[facility] [address] [place], [address] T PROT Normal 5.9-8.4 [facility] Comment on above: Result Comment: [facility] DID NOT HAVE LABS Performed By: #### L 500.4050, L100.0100 ####[facility] [address] [place], [address] Comprehensive Metabolic Profil Normal 133-145 [facility] Comment on above: Result Comment: [facility] DID NOT HAVE LABS Performed By: #### L 500.4050, L100.0100 ####[facility] [address] [place], [address] MR/BMS.FRANCHESKABon 07-02-2024 MR/BMS.B [facility] [address] [facility] [place] [address] OFFICE VISIT Date of Service: 07/02/24 MR#: [id number] Acct: [id number] Name: ANGELAKATI TY Nolan Rep #: [id number] : 1945 Provider: Dr. Mirian roy MD Age/Sex: 79/M Location: [facility] Status: Signed Intake Vital Signs 05/28/24 08:11 07/02/24 09:05 Height 5 ft 10 in 5 ft 10 in Weight: 169 lb BMI 24.2 BP 115/70 Blood Pressure Location Lt brachial Position Sitting Respiration 16 Pulse 63 Pulse Source Monitor Temp 98.2 F Temp Source Temporal Pulse Oximetry (%) 97 Oxygen Delivery Method room air Intake Visit Reasons: Elevated BP, Headaches, Lightheadedness Chief Complaint: Elevated BP, Headaches, Lightheadedness Senior Revenue Accountant Required: No Accompanied by: Self Is patient in pain?: No Allergies No Known Allergies Allergy (Verified 07/02/24 08:59) Medications ???Medication ???Instructions ???Recorded ???Confirmed ???Type acetaminophen 500 mg tablet 500 mg PO Q6H PRN fever or pain 07/02/24 History (Tylenol Extra Strength) fish oil PO 1XD 04/04/22 07/02/24 History osteo biflex PO 2XD 04/04/22 07/02/24 History vit K2 with D3 PO 1XD 04/04/22 07/02/24 History vitamin B comp and C no.3 15 mg-10 1 cap PO DAILY 10/17/23 07/02/24 History mg-50 mg-5 mg-300 mg capsule (B Complex Plus Vitamin C) clotrimazole-betameth asone 1 1 applic topical BID #15 grams 03/0107/02/24 Rx %-0.05 % topical cream polyethylene glycol 3350 17 4 g PO QDAY 03/18/24 07/02/24 Hist ory gram/dose oral powder (Miralax) Pancreat-Bet ZDz-ahh-roaa-pap 250 cap PO DAILY 05/20/24 07/02/24 Hi story mg-162 mg-65 mg-125 mg capsule (Super Enzyme) zinc acetate 1 cap PO DAILY 05/20/24 07/02/24 H istory lisinopril 10 mg tablet 10 mg PO QDAY #90 tabs 05/28/24 Rx trazodone 100 mg tablet 50 mg (1/2 x 100 mg) PO DAILY #45 05/28/24 07/02/24 Rx tabs Have you fallen in the past year?: No PFSH Medical History (Updated 07/02/24 @ 09:[address] 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 pets and animals: No leisure activities: sports and exercise history of recent travel: No sexually active: Yes Smoking Status: Never smoker alcohol intake: never substance use type: does not use well-balanced diet: daily or most days caffeine: No eating out: rarely or never during the past year weight has: remained stable what type of physical activity do you participate in: walking nadine/episcopalian: Rastafarian seatbelt use: always do you feel safe at home: Yes HPI HPI Chief Complaint: Elevated BP, Headaches, Lightheadedness Details: KATI MEDLEY, is a 79 M who presents to the office today for follow-up. See my last several notes, where he had developed what appeared to be a URI, in the late fall at the early winter. He had URI symptoms, however subsequent to this, has noted persisting headaches, lightheadedness. Blood pressure has not been an issue until late last summer when we started to notice a rise. He has had no lab abnormalities and no evidence of any secondary causes of hypertension per se. However since the URI, he has had persisting headaches. 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 Does not wake him up from sleep. He has no associated nausea or vomiting. He denies vertiginous symptoms. He does relate that the headaches do improve if he takes a Tylenol or 2, regular strength, however he can have the headache recur later in the day. Perhaps over the last week but not sure quite yet he has noticed perhaps some slight improvement in the overall symptoms. 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 He has already sold all of his equipment. Review of systems per chart. Physical exam. Vital signs on chart. EOMI. PERRLA. He seemed to have 1-2 beats of an oscillatory nystagmus upon upward vertical gaze. I did not see it with lateral gaze or downward gaze. He did not notice any sense of imbalance, spinning with that. This had not been noted previously. (more content not included)... Normal [facility] MR/BMS.IMBon 05-28-2024 MR/BMS.IMB [facility] [address] [facility] [place] [address] OFFICE VISIT Date of Service: 05/28/24 MR#: [id number] Acct: [id number] Name: KATI MEDLEY Rep #: [id number] : 1945 Provider: Dr. Mirian roy MD Age/Sex: 79/M Location: [facility] Status: Signed with Addenda ADDENDUM by Mario Rodriguez RN on 05/28/24 at 1111 HPI Details: KATI MEDLEY, is a 79 M who presents to the office today for Assessment and Plan Assessment and Plan (1) Hypertension: Status: Chronic (2) Fatigue: Status: Acute (3) Acute URI: Status: Resolved Medications: New lisinopril 10 mg PO QDAY 90 tabs 1RF azithromycin For 250 mg dose pack: take 500 mg today (day 1), then 250 mg for 4 days (days 2-5) PO 6 tabs 0RF Refilled trazodone 50 mg (1/2 x 100 mg) PO DAILY 45 tabs 3RF Discontinued lisinopril-hydrochlor othiazide 10-12.5 mg Discontinued Reason: Discontinued by PCP/other physicians 1 TAB PO QDAY 30 tabs 2RF Vital Signs 05/22/24 08:15 05/27/24 15:09 05/28/24 08:11 05/28/24 09:10 05/28/24 09:12 05/28/24 09:14 Height 5 ft 10 in 5 ft 10 in 5 ft 10 in Weight: 174 lb 2 oz BMI 25.0 BP 135/82 H 128/82 H 143/84 H 119/77 Blood Pressure Location Lt brachial Lt brachial Lt brachial Lt brachial Position Sitting Supine Sitting Standing Respiration 16 Pulse 46 L 42 L 44 L 47 L Pulse Source Monitor Monitor Monitor Monitor Temp 98.4 F Temp Source Temporal Pulse Oximetry (%) 97 Oxygen Delivery Method room air 05/28/24 1310 Date Mirian Ayoub MD cc: * Signed Intake Vital Signs 05/22/24 08:15 05/27/24 15:09 05/28/24 08:11 Height 5 ft 10 in 5 ft 10 in 5 ft 10 in Weight: 174 lb 2 oz BMI 25.0 BP 135/82 H Blood Pressure Location Lt brachial Position Sitting Respiration 16 Pulse 46 L Pulse Source Monitor Temp 98.4 F Temp Source Temporal Pulse Oximetry (%) 97 Oxygen Delivery Method room air Intake Visit Reasons: Review Results, Cough, Fatigue Chief Complaint: review results, cough, fatigue Senior Revenue Accountant Required: No Accompanied by: Self Is patient in pain?: No Allergies No Known Allergies Allergy (Verified 05/28/24 07:57) Medications ???Medication ???Instructions ???Recorded ???Confirmed ???Type acetaminophen 500 mg tablet 500 mg PO Q6H PRN fever or pain 05/28/24 History (Tylenol Extra Strength) fish oil PO 1XD 04/04/22 05/28/24 History osteo biflex PO 2XD 04/04/22 05/28/24 History vit K2 with D3 PO 1XD 04/04/22 05/28/24 History vitamin B comp and C no.3 15 mg-10 1 cap PO DAILY 10/17/23 05/28/24 History mg-50 mg-5 mg-300 mg capsule (B Complex Plus Vitamin C) clotrimazole-betameth asone 1 1 applic topical BID #15 grams 03/0105/28/24 Rx %-0.05 % topical cream polyethylene glycol 3350 17 4 g PO QDAY 03/18/24 05/28/24 Hist ory gram/dose oral powder (Miralax) Pancreat-Bet RVb-sbm-tvzw-pap 250 cap PO DAILY 05/20/24 05/28/24 Hi story mg-162 mg-65 mg-125 mg capsule (Super Enzyme) zinc acetate 1 cap PO DAILY 05/20/24 05/28/24 H istory azithromycin 250 mg tablet See Rx Instructions PO .COMPLEX #6 05/28/24 05/28/24 Rx tabs lisinopril 10 mg tablet 10 mg PO QDAY #90 tabs 05/28/24 Rx trazodone 100 mg tablet 50 mg (1/2 x 100 mg) PO DAILY #45 05/28/24 05/28/24 Rx tabs Have you fallen in the past year?: Yes (05/27/2023, tripped and hit head on bed ) PFSH Medical History Abnormal stress test Hypogonadism Fatigue Hyperlipemia Hypertension Environmental allergies Vision problems GERD (gastroesophageal reflux disease) Kidney stones Surgical History History of hernia surgery Family History Father Cancer internal organs Mother Cancer liver Grandmother Cancer maternal , throat Social History adopted: No household members: spouse housing: condominium current occupational status: employed 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 Normal [facility] Cardiac Cath [facility] Cardiac Cath Diagnostic [facility] Imaging Services [address] [place] [address] Cardiac Cath Diagnostic MR#: [id number] Acct: [id number] Name: KATI MEDLEY Rep #: [id number] : 1945 79 From: Robby Hastings MD PCP: Dr. Mirian Ayoub MD Status:DEP [facility] Patient Name: KATI MEDLEY Study Date: 05/22/2024 Performing: Robby Hastings MD Ht: 70 inches 177.8 cm : 1945 Wt: 170.2 lbs 77.11 kg Age: 79 Gender: male BSA: 1.95 PROCEDURE(S) PERFORMED DC01-(67004)LHC/COR/L V CLINICAL PROFILE AND INDICATIONS Indications: Suspected CAD Heart Failure: None Stress/Imaging Date: 05/13/24 CAD Presentations: Stable angina. CONCLUSIONS Non obstructive coronary arteries Normal LV size, wall motion,and systolic function RECOMMENDATIONS Medical therapy DESCRIPTION OF PROCEDURE The patient arrived to the procedure lab. The risks and benefits of the procedure as well as a full description of our services here and current unavailability of surgical backup were fully explained to the patient and/or their significant other prior to the catheterization. The Timeout was completed, verifying the correct patient and procedure. The patient's procedural site was prepped and draped in the usual fashion. Local anesthetic was given subcutaneously to right groin region with Lidocaine 2%. Using a modified Seldinger technique, arterial access was obtained via the right radial artery, a 6Fr sheath was inserted. Left Coronary Artery selective angiography was performed in multiple views using a 5 Fr. 4.0 [place] catheter. Right Coronary Artery selective angiography was then performed in multiple views using a 5 Fr. 4.0 [place] catheter. Left Ventriculography was performed in PHAN projection using a 5 Fr. Pigtail catheter. LV to AO pullback pressures were then recorded.The arterial sheath was pulled and a TR Band was applied for hemostasis 10 ml of air CORONARY ANGIOGRAPHY DOMINANCE: Right Dominant LEFT HEART ASSESSMENT Left Ventricular Ejection Fraction: by LV Gram 70 % Normal LV wall motion Normal Left Ventricular systolic function LEFT MAIN: Angiographically normal LEFT ANTERIOR DESCENDING ARTERY: Mild luminal irregularities less than 30% CIRCUMFLEX ARTERY: Mild luminal irregularities RIGHT CORONARY ARTERY: Angiographically normal COMPLICATIONS No Complications PROCEDURE MEDICATIONS Fentanyl 50 mcg IV Versed 1 mg IV Versed 1 mg IV Oxygen: 2 L/min via nasal cannula Aspirin (325mg) 1 Tabs PO @ 05/22/2024 08:15:47 Heparin given IA 05/22/2024 09:42:28 SUMMARY OF HEMODYNAMIC DATA Time AIR REST ECG 08:18:09 AO 133/54 (74) SA 09:53:34 AO 111/63 (81) 09:54:16 LV 124/3, 9 09:58:01 LV 129/8, 12 09:58:09 LV 129/12, 23 09:58:37 LV 124/10, 14 09:58:45 LVp 121/9, 13 09:58:49 AOp 115/61 (83) 09:58:56 Signed By Robby Hastings MD On 05/22/2024 15:41:56 Robby Hastings MD 05/22/24 1542 Date Robby Hastings MD Cosigner Signature: Date (if indicated) CC: Dr. Robby Hastings MD; Dr. Mirian Ayoub MD Date Dictated: 05/22/2438 Date Transcribed: 05/22/24 154 Hearing Officer: [place] Signed Normal [facility] Absolute lymphocyte countOrd ered By: Robby Hastings on 05-20-2024 Lymphocytes Auto (Unsp spec) [#/Vol] 2.00 10*3/uL 0.83-4.51 [facility] Absolute neutrophil countOrd ered By: Robby Hastings on 05-20-2024 Neutrophils (Bld) [#/Vol] 4.1 10*3/uL 2.0-7.7 [facility] Automated lymphocyte count a s percentage of total leukocytesOrdered By: Robby Hastings on 05-20-2024 Lymphocytes/100 WBC Auto (Unsp spec) 28.7 % 19-41 [facility] Basic Metabolic Profile (BMP )on 02-12-2025 BUN/CRE 12.8 RATIO Normal 10-20 [facility] Comment on above: Performed By: #### L 500.2500, L100.0100 ####[facility] [address] [place], [address] CA,Total 9.2 mg/dL Normal 8.5-10.1 [facility] Comment on above: Performed By: #### L 500.2500, L100.0100 ####[facility] [address] [place], [address] Chloride [Moles/Vol] 102 mmol/L Normal 98-107 [facility] Comment on above: Performed By: #### L 500.2500, L100.0100 ####[facility] [address] [place], [address] CO2 [Moles/Vol] 28.0 mmol/L Normal 21.0-32.0 [facility] Comment on above: Performed By: #### L 500.2500, L100.0100 ####[facility] [address] [place], [address] Creatinine [Mass/Vol] 1.09 mg/dL Normal 0.70-1.30 [facility] Comment on above: Result Comment: The validity of the calculated GFR GFRAA in patients over 70 years has not been determined. Clinical correlation is essential. Performed By: #### L 500.2500, L100.0100 ####[facility] [address] [place], [address] EST GFR - AA 84 mL/min Normal >60 [facility] Comment on above: Result Comment: Afri can Austrian GFR Calc Performed By: #### L 500.2500, L100.0100 ####[facility] [address] [place], [address] GAP 5 Normal 5-15 [facility] Comment on above: Performed By: #### L 500.2500, L100.0100 ####[facility] [address] [place], [address] GFR/1.73 sq M.predicted among non-blacks MDRD (S/P/Bld) [Vol rate/Area] 69 mL/min/{1.73_m2} Normal >60 [facility] Comment on above: Result Comment: Non- GFR Calc Performed By: #### L 500.2500, L100.0100 ####[facility] [address] [place], [address] Glucose [Mass/Vol] 97 mg/dL Normal 74-106 [facility] Comment on above: Performed By: #### L 500.2500, L100.0100 ####[facility] [address] [place], [address] Potassium [Moles/Vol] 4.1 mmol/L Normal 3.5-5.1 [facility] Comment on above: Performed By: #### L 500.2500, L100.0100 ####[facility] [address] [place], [address] Sodium [Moles/Vol] 135 mmol/L Low 136-145 [facility] Comment on above: Performed By: #### L 500.2500, L100.0100 ####[facility] [address] [place], [address] Urea nitrogen [Mass/Vol] 14 mg/dL Normal 7-18 [facility] Comment on above: Performed By: #### L 500.2500, L100.0100 ####[facility] [address] [place], [address] Basophil percentageOrdered B y: [place] Venkata on 05-20-2024 Basophils/100 WBC (Bld) 0.6 % 0-1 [facility] Blood urea nitrogen (BUN)/cr eatinine ratioOrdered By: Robby Venkata on 05-20-2024 Urea nitrogen/Creatinine [Mass ratio] 12.8 mg/mg 10-20 [facility] CBC W/Diff, Automatedon 05-09 Absolute Lymph 2.00 X10 3/uL Normal 0.83-4.51 [facility] Comment on above: Performed By: #### L 500.2500, L100.0100 ####[facility] [address] [place], [address] Absolute Neut 4.1 X10 3/uL Normal 2.0-7.7 [facility] Comment on above: Performed By: #### L 500.2500, L100.0100 ####[facility] [address] [place], [address] Basophils/100 WBC (Bld) 0.6 % Normal 0-1 [facility] Comment on above: Performed By: #### L 500.2500, L100.0100 ####[facility] [address] [place], [address] Eosinophils/100 WBC (Bld) 2.0 % Normal 0-5 [facility] Comment on above: Performed By: #### L 500.2500, L100.0100 ####[facility] [address] [place], [address] Erythrocyte distribution width (RBC) [Ratio] 12.9 % Normal 11.6-14.6 [facility] Comment on above: Performed By: #### L 500.2500, L100.0100 ####[facility] [address] [place], [address] Hematocrit (Bld) [Volume fraction] 41.6 % Normal 40-54 [facility] Comment on above: Performed By: #### L 500.2500, L100.0100 ####[facility] [address] [place], [address] Hemoglobin (Bld) [Mass/Vol] 14.0 g/dL Normal 13.0-16.5 [facility] Comment on above: Performed By: #### L 500.2500, L100.0100 ####[facility] [address] [place], [address] IG% 0.400 Normal 0.0-0.9 [facility] Comment on above: Result Comment: IG% - Immature Granulocytes (promyelocytes, myelocytes and metamyelocytes) > 1% indicates that a LEFT SHIFT is Present. Performed By: #### L 500.2500, L100.0100 ####[facility] [address] [place], [address] Lymphocytes/100 WBC (Bld) 28.7 % Normal 19-41 [facility] Comment on above: Performed By: #### L 500.2500, L100.0100 ####[facility] [address] [place], [address] MCH (RBC) [Entitic mass] 31.7 pg Normal 27.0-32.0 [facility] Comment on above: Performed By: #### L 500.2500, L100.0100 ####[facility] [address] [place], [address] MCHC (RBC) [Mass/Vol] 33.7 g/dL Normal 32-36 [facility] Comment on above: Performed By: #### L 500.2500, L100.0100 ####[facility] [address] [place], [address] MCV (RBC) [Entitic vol] 94.3 fL High 80-94 [facility] Comment on above: Performed By: #### L 500.2500, L100.0100 ####[facility] [address] [place], [address] Monocytes/100 WBC (Bld) 9.2 % Normal 0-10 [facility] Comment on above: Performed By: #### L 500.2500, L100.0100 ####[facility] [address] [place], [address] Neutrophils/100 WBC (Bld) 59.1 % Normal 47-70 [facility] Comment on above: Performed By: #### L 500.2500, L100.0100 ####[facility] [address] [place], [address] Nucleated RBC (Bld) [#/Vol] 0 10*3/uL Normal 0-5 [facility] Comment on above: Performed By: #### L 500.2500, L100.0100 ####[facility] [address] [place], [address] Platelet mean volume (Bld) [Entitic vol] 8.8 fL Normal 6.2-12.0 [facility] Comment on above: Performed By: #### L 500.2500, L100.0100 ####[facility] [address] [place], [address] Platelets (Bld) [#/Vol] 213 10*3/uL Normal 150-450 [facility] Comment on above: Performed By: #### L 500.2500, L100.0100 ####[facility] [address] [place], [address] RBC (Bld) [#/Vol] 4.41 10*6/uL Low 4.6-6.[address] [facility] Comment on above: Performed By: #### L 500.2500, L100.0100 ####[facility] [address] [place], [address] RDW SD 45.0 fl High 35.1-43.9 [facility] Comment on above: Performed By: #### L 500.2500, L100.0100 ####[facility] [address] [place], [address] WBC (Bld) [#/Vol] 7.0 10*3/uL Normal 4.4-11.0 [facility] Comment on above: Performed By: #### L 500.2500, L100.0100 ####[facility] [address] [place], [address] Carbon dioxide measurementOr dered By: Robby Hastings on 05-20-2024 CO2 [Moles/Vol] 28.0 mmol/L 21.0-32.0 [facility] Cardiology Visit Reporton Cardiology Visit Report [facility] [address] [place] [address] OFFICE VISIT Date of Service: 05/20/24 MR#: [id number] Acct: [id number] Name: KATI MEDLEY Rep #: [id number] : 1945 Provider: Dr. Robby Hastings MD Age/Sex: 79/M Location: [facility] Status: Signed HPI HPI History of Present Illness Details: Pleasant 79-year-old man with no previous cardiac history who had initially presented and was noted to have mildly elevated blood pressure and was experiencing some shortness of breath with exertion which was minimal. However as part of his workup he underwent an exercise stress test where he exercised to 10.1 metabolic equivalents attaining a high workload and having evidence of apical ischemia noted on his stress test. His blood pressure was also noted to be going up and he was placed on lisinopril. He has not started taking that yet. He was asked to see us in cardiology for further evaluation and management. He has had no dizziness or diaphoresis no near-syncope or syncope. His lipid profile from March demonstrated total cholesterol 235 HDL of 63 and LDL of 156. His physical exam is unremarkable his electrocardiogram demonstrates normal sinus rhythm with no acute changes. 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: No Accompanied by: Is patient in pain?: No Allergies No Known Allergies Allergy (Verified 05/20/24 15:54) Medications ???Medication ???Instructions ???Recorded ???Confirmed ???Type acetaminophen 500 mg tablet 500 mg PO Q6H PRN 04/04/22 5 History (Tylenol Extra Strength) fish oil PO 1XD 04/04/22 05/20/24 History osteo biflex PO 2XD 04/04/22 05/20/24 History vit K2 with D3 PO 1XD 04/04/22 05/20/24 History vitamin B comp and C no.3 15 mg-10 1 cap PO DAILY 10/17/23 05/20/24 History mg-50 mg-5 mg-300 mg capsule (B Complex Plus Vitamin C) trazodone 100 mg tablet 50 mg (1/2 x 100 mg) PO DAILY #45 10/24/23 05/20/24 Rx tabs clotrimazole-betameth asone 1 1 applic topical BID #15 grams 03/0105/20/24 Rx %-0.05 % topical cream polyethylene glycol 3350 17 4 g PO QDAY 03/18/24 05/20/24 Hist ory gram/dose oral powder (Miralax) lisinopril 10 1 tab PO QDAY #30 tabs 05/14/24 Rx mg-hydrochlorothiazid e 12.5 mg tablet Pancreat-Bet IQp-rsj-fkjt-pap 250 cap PO DAILY 05/20/24 05/20/24 Hi story mg-162 mg-65 mg-125 mg capsule (Super Enzyme) zinc acetate PO DAILY 05/20/24 05/20/24 History Have you fallen in the past year?: No PFSH Medical History Abnormal stress test Hypogonadism Fatigue Hyperlipemia Hypertension Environmental allergies Vision problems GERD (gastroesophageal reflux disease) Kidney stones Surgical History History of hernia surgery Family History Father Cancer internal organs Mother Cancer liver Grandmother Cancer maternal , throat Social History adopted: No household members: spouse housing: condominium current occupational status: employed 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 pets and animals: No leisure activities: sports and exercise history of recent travel: No sexually active: Yes Smoking Status: Never smoker alcohol intake: never substance use type: does not use well-balanced diet: daily or most days caffeine: No eating out: rarely or never during the past year weight has: remained stable what type of physical activity do you participate in: walking nadine/episcopalian: Rastafarian seatbelt use: always do you feel safe at home: Yes ROS Const Const: Positive for fatigue and headache(s) (daily, continuous); Negative for weakness or weight gain ENT ENT: Positive for headache(s) (daily, continuous); Negative for dizziness, Nosebleed/epistaxis or balance problems Cardio Chest Pain: No Palpitations: No Edema: None Muscle aches with walking: None Resp Respiratory: Negative for SOB with activity, SOB at rest or SOB orthopnea SOB lying down GI GI: Positive for heartburn (Tx with omeprazole); Negative nausea or vomiting Musc Musc: Negative for muscle aches/ myalgia, muscle weakness, joint pain or balance problems Neuro Neuro: Positive for lightheadedness (in AM) and headache(s) (daily, continuous); Negative for dizziness, near syncope, syncope or weakness Endo Endo: Positive for fatigue Cardiol (more content not included)... Normal [facility] Chloride measurementOrdered By: Robby Hastings on 05-20-2024 Chloride [Moles/Vol] 102 mmol/L 98-107 [facility] Eosinophil percentageOrdered By: Robby Hastings on 05-20-2024 Eosinophils/100 WBC (Bld) 2.0 % 0-5 [facility] Erythrocyte distribution wid th ratioOrdered By: Robby Hastings on 05-20-2024 Erythrocyte distribution width (RBC) [Ratio] 12.9 % 11.6-14.6 [facility] Erythrocyte distribution wid th standard deviationOrdered By: Robby Hastings on 05-20-2024 Erythrocyte distribution width (RBC) [Ratio] 45.0 fl High 35.1-43.9 [facility] Glomerular filtration rate ( GFR) estimationOrdered By: Robby Hastings on 05-20-2024 GFR/1.73 sq M.predicted among non-blacks MDRD (S/P/Bld) [Vol rate/Area] 69 mL/min/{1.73_m2} >60 [facility] Comment on above: Non- GFR Calc Glucose measurementOrdered B y: Monteview Venkata on 05-20-2024 Glucose [Mass/Vol] 97 mg/dL 74-106 [facility] Hematocrit Auto (Bld) [Volum e fraction]Ordered By: Robby Venkata on 05-20-2024 Hematocrit (Bld) [Volume fraction] 41.6 % 40-54 [facility] Hemoglobin measurementOrdere d By: Monteview Venkata on 05-20-2024 Hemoglobin (Bld) [Mass/Vol] 14.0 g/dL 13.0-16.5 [facility] Immature granulocytes/100 WB C Auto (Bld)Ordered By: Monteview Venkata on 05-20-2024 Immature granulocytes/100 WBC (Bld) 0.400 % 0.0-0.9 [facility] Comment on above: IG% - Immature Granu locytes (promyelocytes, myelocytes and metamyelocytes) > 1% indicates that a LEFT SHIFT is Present. MCV (mean corpuscular volume ) determinationOrdered By: Monteview Venkata on 05-20-2024 MCV (RBC) [Entitic vol] 94.3 fL High 80-94 [facility] Mean corpuscular hemoglobin (MCH) determinationOrdered By: Robby Venkata on 05-20-2024 MCH (RBC) [Entitic mass] 31.7 pg 27.0-32.0 [facility] Mean corpuscular hemoglobin concentration (MCHC) determinationOrdered By: Monteview Venkata on 05-20-2024 MCHC (RBC) [Mass/Vol] 33.7 g/dL 32-36 [facility] Mean platelet volume determi nationOrdered By: Monteview Venkata on 05-20-2024 Platelet mean volume (Bld) [Entitic vol] 8.8 fL 6.2-12.0 [facility] Monocyte percentageOrdered B y: Monteview Venkata on 05-20-2024 Monocytes/100 WBC (Bld) 9.2 % 0-10 [facility] Neutrophil percentageOrdered By: Robby Venkata on 05-20-2024 Neutrophils/100 WBC (Bld) 59.1 % 47-70 [facility] Nucleated red blood cell per centageOrdered By: Robby Venkata on 05-20-2024 Nucleated RBC/100 WBC (Bld) [Ratio] 0 % 0-5 [facility] Platelet countOrdered By: Cy ril Venkata on 05-20-2024 Platelets (Bld) [#/Vol] 213 10*3/uL 150-450 [facility] Potassium measurementOrdered By: Robby Venkata on 05-20-2024 Potassium [Moles/Vol] 4.1 mmol/L 3.5-5.1 [facility] RBC Auto (Bld) [#/Vol]Ordere d By: Robbynolan Hastings on 05-20-2024 RBC (Bld) [#/Vol] 4.41 10*6/uL Low 4.6-6.[address] [facility] Serum anion gap measurementO rdered By: Robby Hastings on 05-20-2024 Anion gap [Moles/Vol] 5 mmol/L 5-15 [facility] Serum or plasma calcium alessandra urement (mass/volume)Ordered By: Robby Hastings on 05-20-2024 Calcium [Mass/Vol] 9.2 mg/dL 8.5-10.1 [facility] Serum or plasma creatinine m easurement (mass/volume)Ordered By: Robby Hastings on 05-20-2024 Creatinine [Mass/Vol] 1.09 mg/dL 0.70-1.30 [facility] Comment on above: The validity of the calculated GFR & GFRAA in patients over 70 years has not been determined. Clinical correlation is essential. Serum or plasma urea nitroge n measurement (mass/volume)Ordered By: Robby Hastings on 05-20-2024 Urea nitrogen [Mass/Vol] 14 mg/dL 7-18 [facility] Sodium levelOrdered By: Juvencio Hastings on 05-20-2024 Sodium [Moles/Vol] 135 mmol/L Low 136-145 [facility] White blood cell (WBC) count Ordered By: Monteviewbalaji Hastings on 05-20-2024 WBC (Bld) [#/Vol] 7.0 10*3/uL 4.4-11.0 [facility] Stress Reporton 05-18-2024 Stress Report [facility] [address] [place] [address] MR#: [id number] Acct: [id number] Name: KATI MEDLEY Rep #: [id number] : 1945 79 From: Robby Hastings MD Primary Care: Dr. Mirian Ayoub MD Status: REG CLI Referring Dr: Mirian Ayoub MD Sex: M C Stress Test Report Exercise myocardial perfusion stress test. 79-year-old male with a history of hypertension and fatigue Stress protocol: Resting EKG demonstrates sinus bradycardia with a rate of 48 bpm resting blood pressure is 130/80 mmHg. The patient exercised according to the regular Kush protocol for a total duration of 9 minutes attaining a maximum heart rate of 130 bpm which was 92% of maximum predicted heart rate; the maximum workload was 10.1 metabolic equivalents. At rest there were no ST or T wave changes noted to suggest ischemia and at peak exercise upsloping ST changes only were noted which did not meet the criteria for ischemia. No clinical angina was noted the test was terminated due to the target heart rate being achieved/fatigue. The peak blood pressure was 172/60 mmHg. Rate-pressure product was 22,000. Myocardial perfusion protocol. 11 point mCi of technetium 99m sestamibi was injected at rest. The patient exercised according to regular Kush protocol for total duration of 9 minutes and at peak exercise 34.6 mCi of technetium 99m sestamibi was injected stress images were obtained stress and rest images were reconstructed in comparing the short axis vertical long and horizontal long axis. Gated images were also obtained. Perfusion SPECT analysis: Review of the stress images demonstrate normal uptake of tracer noted in all areas of the myocardium. There is an area in the apex of the ventricle with reduced perfusion which normalizes on rest suggestive of apical ischemia at a high workload. the resting images similarly demonstrate normal uptake of tracer noted in all areas of the myocardium. No previous infarct is noted. Gated SPECT analysis: The gated ejection fraction is 63%. Conclusion: Mildly abnormal exercise myocardial perfusion stress test at a high workload with evidence of apical ischemia Preserved ejection fraction. 05/18/24 1409 Date Robby Hastings MD CC: Dr. Mirian Ayoub MD Date Dictated: 05/18/241318 Date Transcribed: 05/18/241318 Hearing Officer: [place] Signed Normal [facility] MR/BMS.IMBon 05-14-2024 MR/BMS.IMB [facility] [address] [place] [address] OFFICE VISIT Date of Service: 05/14/24 MR#: [id number] Acct: [id number] Name: KATI MEDLEY Rep #: [id number] : 1945 Provider: Dr. Mirian roy MD Age/Sex: 79/M Location: [facility] Status: Signed Intake Vital Signs 03/18/24 08:09 05/14/24 08:55 05/14/24 09:50 Height 5 ft 10 in 5 ft 10 in Weight: 170 lb 2 oz BMI 24.4 BP 162/74 H 156/77 H Blood Pressure Location Lt brachial Lt brachial Position Sitting Sitting Respiration 16 Pulse 60 Pulse Source Monitor Temp 97.8 F Temp Source Temporal Pulse Oximetry (%) 97 Oxygen Delivery Method room air Intake Visit Reasons: EKG/FU Chief Complaint: 6 m fu Allergies No Known Allergies Allergy (Verified 03/18/24 08:03) Have you fallen in the past year?: No PFSH Medical History (Updated 05/12/24 @ 14:[address] 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 animals: No leisure activities: sports and exercise history of recent travel: No sexually active: Yes Smoking Status: Never smoker alcohol intake: never substance use type: does not use well-balanced diet: daily or most days caffeine: No eating out: rarely or never during the past year weight has: remained stable what type of physical activity do you participate in: walking nadine/episcopalian: Rastafarian seatbelt use: always do you feel safe at home: Yes HPI HPI Chief Complaint: 6 m fu Details: KATI MEDLEY, is a 79 M who presents to the office today for acute care follow-up visit for hypertension evaluation. Initially we asked him to come in just for nurse visit to check EKG, however he has been having elevated blood pressures at home, not severe but he did have a recent presumed viral illness as well, that may have contributed to this. Therefore we have simply change this to an acute care visit. He is otherwise very healthy, eating very good high-quality diet, with no significant long-term medications or medical illnesses. He is not having chest pain or chest tightness. The recent presumed viral illness may have been COVID. He had a lot of tiredness fatigue, headache, blah feeling, lack of energy. Gradually getting better, less headache, slowly improving in the fatigue. He does have good cholesterol levels overall, and has not required any medication for primary prevention purposes. Does not smoke. Review of systems per chart. Physical exam. Vital signs on chart. See my previous note. I have not performed any significant physical exam today. Coding Level of Care Code Off vis,est,level 3 Diagnoses Hypertension I10 Fatigue R53.83 Hyperlipemia E78.5 Time Spent (min) 30 Assessment and Plan Assessment and Plan (1) Hypertension: Status: Chronic (2) Fatigue: Status: Acute (3) Hyperlipemia: Status: Acute Orders: Orders Nuclear Stress Test - Treadmil Today E78.5 - Hyperlipidemia, unspecified, I10 - Essential (primary) hypertension, R53.83 - Other fatigue Plan Details Additional Comments: Patient presented as above, for an acute care follow-up visit. Elevated blood pressure readings. We reviewed those in detail. He has been emailing blood pressure readings as of recent. His systolic has been elevated, diastolic has been typically in the 70s. However the elevations are unusual for him. He has had tiredness and fatigue which may have been the result of recent viral illness but with the elevated blood pressure change and fatigue and tiredness, I think it would be prudent, given his age as well to do stress test. His EKG today did not show any significant bothersome acute findings. Will arrange exercise Cardiolite stress test for the near future. No other specific changes recommended right now except we will add lisinopril???HCTZ 10???12.5. Hopefully, if this blood pressure elevation is simply related to recent illnesses, that gradually if things improve we will get him back off of this. 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 So HCTZ may not be in his best interest. The long-haul. I have asked him to (more content not included)... Normal [facility] CBC W/Diff, Automatedon - Absolute Lymph 2.05 X10 3/uL Normal 0.83-4.51 [facility] Comment on above: Performed By: #### L 500.4050, L101.9900, L100.0100, L501.6710 ####[facility] [address] [place], [address] Absolute Neut 3.7 X10 3/uL Normal 2.0-7.7 [facility] Comment on above: Performed By: #### L 500.4050, L101.9900, L100.0100, L501.6710 ####[facility] [address] [place], [address] Basophils/100 WBC (Bld) 0.7 % Normal 0-1 [facility] Comment on above: Performed By: #### L 500.4050, L101.9900, L100.0100, L501.6710 ####[facility] [address] [place], [address] Eosinophils/100 WBC (Bld) 2.7 % Normal 0-5 [facility] Comment on above: Performed By: #### L 500.4050, L101.9900, L100.0100, L501.6710 ####[facility] [address] [place], [address] Erythrocyte distribution width (RBC) [Ratio] 13.2 % Normal 11.6-14.6 [facility] Comment on above: Performed By: #### L 500.4050, L101.9900, L100.0100, L501.6710 ####[facility] [address] [place], [address] Hematocrit (Bld) [Volume fraction] 44.2 % Normal 40-54 [facility] Comment on above: Performed By: #### L 500.4050, L101.9900, L100.0100, L501.6710 ####[facility] [address] [place], [address] Hemoglobin (Bld) [Mass/Vol] 14.7 g/dL Normal 13.0-16.5 [facility] Comment on above: Performed By: #### L 500.4050, L101.9900, L100.0100, L501.6710 ####[facility] [address] [place], [address] IG% 1.200 High 0.0-0.9 [facility] Comment on above: Result Comment: IG% - Immature Granulocytes (promyelocytes, myelocytes and metamyelocytes) > 1% indicates that a LEFT SHIFT is Present. Performed By: #### L 500.4050, L101.9900, L100.0100, L501.6710 ####[facility] [address] [place], [address] Lymphocytes/100 WBC (Bld) 30.6 % Normal 19-41 [facility] Comment on above: Performed By: #### L 500.4050, L101.9900, L100.0100, L501.6710 ####[facility] [address] [place], [address] MCH (RBC) [Entitic mass] 31.7 pg Normal 27.0-32.0 [facility] Comment on above: Performed By: #### L 500.4050, L101.9900, L100.0100, L501.6710 ####[facility] [address] [place], [address] MCHC (RBC) [Mass/Vol] 33.3 g/dL Normal 32-36 [facility] Comment on above: Performed By: #### L 500.4050, L101.9900, L100.0100, L501.6710 ####[facility] [address] [place], [address] MCV (RBC) [Entitic vol] 95.3 fL High 80-94 [facility] Comment on above: Performed By: #### L 500.4050, L101.9900, L100.0100, L501.6710 ####[facility] [address] [place], [address] Monocytes/100 WBC (Bld) 9.6 % Normal 0-10 [facility] Comment on above: Performed By: #### L 500.4050, L101.9900, L100.0100, L501.6710 ####[facility] [address] [place], [address] Neutrophils/100 WBC (Bld) 55.2 % Normal 47-70 [facility] Comment on above: Performed By: #### L 500.4050, L101.9900, L100.0100, L501.6710 ####[facility] [address] [place], [address] Nucleated RBC (Bld) [#/Vol] 0 10*3/uL Normal 0-5 [facility] Comment on above: Performed By: #### L 500.4050, L101.9900, L100.0100, L501.6710 ####[facility] [address] [place], [address] Platelet mean volume (Bld) [Entitic vol] 8.6 fL Normal 6.2-12.0 [facility] Comment on above: Performed By: #### L 500.4050, L101.9900, L100.0100, L501.6710 ####[facility] [address] [place], [address] Platelets (Bld) [#/Vol] 223 10*3/uL Normal 150-450 [facility] Comment on above: Performed By: #### L 500.4050, L101.9900, L100.0100, L501.6710 ####[facility] [address] [place], [address] RBC (Bld) [#/Vol] 4.64 10*6/uL Normal 4.6-6.[address] [facility] Comment on above: Performed By: #### L 500.4050, L101.9900, L100.0100, L501.6710 ####[facility] [address] [place], [address] RDW SD 45.9 fl High 35.1-43.9 [facility] Comment on above: Performed By: #### L 500.4050, L101.9900, L100.0100, L501.6710 ####[facility] [address] [place], [address] WBC (Bld) [#/Vol] 6.7 10*3/uL Normal 4.4-11.0 [facility] Comment on above: Performed By: #### L 500.4050, L101.9900, L100.0100, L501.6710 ####[facility] [address] [place], [address] CRPon 03-31-2024 C-REACTIVE PROT < 2.90 Normal 0.0-3.0 [facility] Comment on above: Result Comment: C-Re active Protein (CRP) provides useful information for the diagnosis, therapy and monitoring of inflammatory processes and associated diseases. For the evaluation of Relative Risk for Cardiovascular Disease, a High Sensitivity CRP (HSCRP) should be ordered. Performed By: #### L 500.4050, L101.9900, L100.0100, L501.6710 ####[facility] [address] [place], [address] Chest PA and Lateralon 03-31 Chest PA and Lateral [facility] [address] [place] [address] Chest PA and Lateral MR#: [id number] Acct: [id number] Name: KATI MEDLEY Rep #: [id number] : 1945 M 78 From: Trell Moise MD PCP: Dr. Mirian Ayoub MD Status: REG CLI Study: Chest PA and Lateral Date of Exam: 03/31/24 Exam# [id number] Ordering Dr: Mirian Ayoub MD [id number] STUDY: X-RAY CHEST REASON FOR EXAM: Male, 78 years old. Acute URI TECHNIQUE: PA and lateral views of the chest. COMPARISON: 04/12/2006 FINDINGS: The lungs are clear and expanded. There is no demonstrated pleural abnormality. Normal size heart. Normal mediastinum and lacy. Normal visualized pulmonary arteries. Normal visualized aortic arch and descending thoracic aorta. Normal visualized thoracic spine. Normal visualized ribs, clavicles, and shoulders. There is no demonstrated abnormality of the visualized soft tissue structures of the upper abdomen. RAD/Chest PA and Lateral IMPRESSION: Normal x-ray examination of the chest. Electronically Signed: Trell Moise MD at 14:03 EST , CC: Dr. Mirian Ayoub MD Hearing Officer: Signed Normal [facility] Comprehensive Metabolic Prof wyjami 03-31-2024 Albumin [Mass/Vol] 3.9 g/dL Normal 3.2-5.0 [facility] Comment on above: Performed By: #### L 500.4050, L101.9900, L100.0100, L501.6710 ####[facility] [address] [place], [address] Albumin/Globulin [Mass ratio] 1.1 {ratio} Normal 0.9-2.4 [facility] Comment on above: Performed By: #### L 500.4050, L101.9900, L100.0100, L501.6710 ####[facility] [address] [place], [address] ALK P 76 U/L Normal 45-117 [facility] Comment on above: Performed By: #### L 500.4050, L101.9900, L100.0100, L501.6710 ####[facility] [address] [place], [address] ALT [Catalytic activity/Vol] 16 U/L Normal 16-61 [facility] Comment on above: Performed By: #### L 500.4050, L101.9900, L100.0100, L501.6710 ####[facility] [address] [place], [address] AST [Catalytic activity/Vol] 12 U/L Low 15-37 [facility] Comment on above: Performed By: #### L 500.4050, L101.9900, L100.0100, L501.6710 ####[facility] [address] [place], [address] Bilirubin [Mass/Vol] 0.60 mg/dL Normal 0.20-1.00 [facility] Comment on above: Result Comment: For patients on eltrombopag therapy, use of Dimension [place] TBIL is not recommended. Performed By: #### L 500.4050, L101.9900, L100.0100, L501.6710 ####[facility] [address] [place], [address] BUN/CRE 8.9 RATIO Low 10-20 [facility] Comment on above: Performed By: #### L 500.4050, L101.9900, L100.0100, L501.6710 ####[facility] [address] [place], [address] CA,Total 9.3 mg/dL Normal 8.5-10.1 [facility] Comment on above: Performed By: #### L 500.4050, L101.9900, L100.0100, L501.6710 ####[facility] [address] [place], [address] Chloride [Moles/Vol] 103 mmol/L Normal 98-107 [facility] Comment on above: Performed By: #### L 500.4050, L101.9900, L100.0100, L501.6710 ####[facility] [address] [place], [address] CO2 [Moles/Vol] 31.0 mmol/L Normal 21.0-32.0 [facility] Comment on above: Performed By: #### L 500.4050, L101.9900, L100.0100, L501.6710 ####[facility] [address] [place], [address] Creatinine [Mass/Vol] 1.12 mg/dL Normal 0.70-1.30 [facility] Comment on above: Result Comment: The validity of the calculated GFR GFRAA in patients over 70 years has not been determined. Clinical correlation is essential. Performed By: #### L 500.4050, L101.9900, L100.0100, L501.6710 ####[facility] [address] [place], [address] EST GFR - AA 81 mL/min Normal >60 [facility] Comment on above: Result Comment: Afri can Austrian GFR Calc Performed By: #### L 500.4050, L101.9900, L100.0100, L501.6710 ####[facility] [address] [place], [address] GAP 2 Low 5-15 [facility] Comment on above: Performed By: #### L 500.4050, L101.9900, L100.0100, L501.6710 ####[facility] [address] [place], [address] GFR/1.73 sq M.predicted among non-blacks MDRD (S/P/Bld) [Vol rate/Area] 67 mL/min/{1.73_m2} Normal >60 [facility] Comment on above: Result Comment: Non- GFR Calc Performed By: #### L 500.4050, L101.9900, L100.0100, L501.6710 ####[facility] [address] [place], [address] Globulin (S) [Mass/Vol] 3.7 g/dL Normal 2.2-4.2 [facility] Comment on above: Performed By: #### L 500.4050, L101.9900, L100.0100, L501.6710 ####[facility] [address] [place], [address] Glucose [Mass/Vol] 100 mg/dL Normal 74-106 [facility] Comment on above: Result Comment: Fast ing Glucose result from 100 to 125 mg/dL suggests IMPAIRED HOMEOSTASIS per A.D.A. criteria. Performed By: #### L 500.4050, L101.9900, L100.0100, L501.6710 ####[facility] [address] [place], [address] Potassium [Moles/Vol] 3.9 mmol/L Normal 3.5-5.1 [facility] Comment on above: Performed By: #### L 500.4050, L101.9900, L100.0100, L501.6710 ####[facility] [address] [place], [address] Sodium [Moles/Vol] 136 mmol/L Normal 136-145 [facility] Comment on above: Performed By: #### L 500.4050, L101.9900, L100.0100, L501.6710 ####[facility] [address] [place], [address] T PROT 7.6 g/dL Normal 6.4-8.2 [facility] Comment on above: Performed By: #### L 500.4050, L101.9900, L100.0100, L501.6710 ####[facility] [address] [place], [address] Urea nitrogen [Mass/Vol] 10 mg/dL Normal 7-18 [facility] Comment on above: Performed By: #### L 500.4050, L101.9900, L100.0100, L501.6710 ####[facility] [address] [place], [address] Erythrocyte Sed Rateon - SED RATE 3 mm/hr Normal 0-20 [facility] Comment on above: Performed By: #### L 500.4050, L101.9900, L100.0100, L501.6710 ####[facility] [address] [place], [address] MR/BMS.IMBon 03-18-2024 MR/BMS.B [facility] [address] [place] [address] OFFICE VISIT Date of Service: 03/18/24 MR#: [id number] Acct: [id number] Name: KATI MEDLEY Rep #: [id number] : 1945 Provider: Dr. Mirian roy MD Age/Sex: 78/M Location: 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 Accompanied by: Self Is patient in pain?: No Allergies No Known Allergies Allergy (Verified 03/18/24 08:03) Medications ???Medication ???Instructions ???Recorded ???Confirmed ???Type acetaminophen 500 mg tablet 500 mg PO Q6H PRN 04/04/22 03/18/24 History (Tylenol Extra Strength) fish oil PO 1XD 04/04/22 03/18/24 History osteo biflex PO 2XD 04/04/22 03/18/24 History vit K2 with D3 PO 1XD 04/04/22 03/18/24 History vitamin B comp and C no.3 15 mg-10 1 cap PO DAILY 10/17/23 03/18/24 History mg-50 mg-5 mg-300 mg capsule (B Complex Plus Vitamin C) trazodone 100 mg tablet 50 mg (1/2 x 100 mg) PO DAILY #45 10/24/23 03/18/24 Rx tabs clotrimazole-betameth asone 1 1 applic topical BID #15 grams 03/18/24 03/18/24 Rx %-0.05 % topical cream polyethylene glycol 3350 17 4 g PO QDAY 03/18/24 03/18/24 History gram/dose oral powder (Miralax) Have you fallen in the past year?: No PFSH Medical History (Updated 03/18/24 @ 08:[address] 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 Patient is 78-year-old gentleman. He continues to overall be reasonably active. He has done working/mowing for the year. 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 Thinking about cutting back some more in 25 from where he is now. He works independently. He enjoys the work but at times it gets little more than he desires. He enjoys the physical activity level. In the winter, he walks outdoors when weather permits, and also has a treadmill. He continues to eat a pretty good high-quality diet. Adequate fruits and vegetables, some raw, much cooked by description but limited meats. Avoids processed and junk food etc. Has noticed a rash in his groin. Started in February, little more confluent early, now, has settled down but he has used a variety of things, some of which may not have been terribly beneficial in the long run including occlusive Vaseline. He does wash the area thoroughly during showering and then will keep it dry. Uses bath powder as well. Review of systems per chart. Physical exam. Vital signs on chart. PERRLA. Sclera are clear. TMs are unremarkable with normal light reflexes. Canals are unremarkable. Posterior pharynx is unremarkable. Good dentition. No cervical or supraclavicular lymph nodes enlarged or tender. No clear thyromegaly. No thyroid nodules readily palpable. Lungs are without wheeze, rhonchi, rales. No E/A changes are heard. Heart is regular. Not tachycardic. No clear murmur, rub, or gallop is identified. The abdomen is soft. Bowel sounds are present. Nontender nondistended abdomen. No clear palpable masses in the abdomen. No significant leg edema. In the groins, rash, couple of areas a little more confluent but other areas more of a macular type of appearance. Etiology is not entirely clear but certai (more content not included)... Normal [facility] Comprehensive Metabolic Prof sridevi 03-13-2024 Albumin [Mass/Vol] 3.5 g/dL Normal 3.2-5.0 [facility] Comment on above: Performed By: #### L 500.4050, L500.4100 ####[facility] [address] [place], [address] Albumin/Globulin [Mass ratio] 1.0 {ratio} Normal 0.9-2.4 [facility] Comment on above: Performed By: #### L 500.4050, L500.4100 ####[facility] [address] [place], [address] ALK P 70 U/L Normal 45-117 [facility] Comment on above: Performed By: #### L 500.4050, L500.4100 ####[facility] [address] [place], [address] ALT [Catalytic activity/Vol] 21 U/L Normal 16-61 [facility] Comment on above: Performed By: #### L 500.4050, L500.4100 ####[facility] [address] [place], [address] AST [Catalytic activity/Vol] 17 U/L Normal 15-37 [facility] Comment on above: Performed By: #### L 500.4050, L500.4100 ####[facility] [address] [place], [address] Bilirubin [Mass/Vol] 0.60 mg/dL Normal 0.20-1.00 [facility] Comment on above: Result Comment: For patients on eltrombopag therapy, use of Dimension [place] TBIL is not recommended. Performed By: #### L 500.4050, L500.4100 ####[facility] [address] [place], [address] BUN/CRE 9.8 RATIO Low 10-20 [facility] Comment on above: Performed By: #### L 500.4050, L500.4100 ####[facility] [address] [place], [address] CA,Total 9.1 mg/dL Normal 8.5-10.1 [facility] Comment on above: Performed By: #### L 500.4050, L500.4100 ####[facility] [address] [place], [address] Chloride [Moles/Vol] 110 mmol/L High 98-107 [facility] Comment on above: Performed By: #### L 500.4050, L500.4100 ####[facility] [address] [place], [address] CO2 [Moles/Vol] 29.0 mmol/L Normal 21.0-32.0 [facility] Comment on above: Performed By: #### L 500.4050, L500.4100 ####[facility] [address] [place], [address] Creatinine [Mass/Vol] 1.02 mg/dL Normal 0.70-1.30 [facility] Comment on above: Result Comment: The validity of the calculated GFR GFRAA in patients over 70 years has not been determined. Clinical correlation is essential. Performed By: #### L 500.4050, L500.4100 ####[facility] [address] [place], [address] EST GFR - AA 91 mL/min Normal >60 [facility] Comment on above: Result Comment: Afri can Austrian GFR Calc Performed By: #### L 500.4050, L500.4100 ####[facility] [address] [place], [address] GAP 3 Low 5-15 [facility] Comment on above: Performed By: #### L 500.4050, L500.4100 ####[facility] [address] [place], [address] GFR/1.73 sq M.predicted among non-blacks MDRD (S/P/Bld) [Vol rate/Area] 75 mL/min/{1.73_m2} Normal >60 [facility] Comment on above: Result Comment: Non- GFR Calc Performed By: #### L 500.4050, L500.4100 ####[facility] [address] [place], [address] Globulin (S) [Mass/Vol] 3.5 g/dL Normal 2.2-4.2 [facility] Comment on above: Performed By: #### L 500.4050, L500.4100 ####[facility] [address] [place], [address] Glucose [Mass/Vol] 92 mg/dL Normal 74-106 [facility] Comment on above: Performed By: #### L 500.4050, L500.4100 ####[facility] [address] [place], [address] Potassium [Moles/Vol] 4.0 mmol/L Normal 3.5-5.1 [facility] Comment on above: Performed By: #### L 500.4050, L500.4100 ####[facility] [address] [place], [address] Sodium [Moles/Vol] 142 mmol/L Normal 136-145 [facility] Comment on above: Performed By: #### L 500.4050, L500.4100 ####[facility] [address] [place], [address] T PROT 7.0 g/dL Normal 6.4-8.2 [facility] Comment on above: Performed By: #### L 500.4050, L500.4100 ####[facility] [address] [place], [address] Urea nitrogen [Mass/Vol] 10 mg/dL Normal 7-18 [facility] Comment on above: Performed By: #### L 500.4050, L500.4100 ####[facility] [address] [place], [address] Lipid Profileon 03-13-2024 Cholesterol [Mass/Vol] 235 mg/dL High 200 [facility] Comment on above: Result Comment: <200 mg/dL Desirable 200-240 mg/dL Borderline >240 mg/dL High Risk Performed By: #### L 500.4050, L500.4100 ####[facility] [address] [place], [address] Cholesterol in HDL [Mass/Vol] 63 mg/dL Normal [facility] Comment on above: Result Comment: The drugs N-Acetylcysteine and Metamizole may falsely depress this assay. Reference Range HDL <40 mg/dL Low HDL Cholesterol HDL >or= 60 mg/dL High HDL Cholesterol Performed By: #### L 500.4050, L500.4100 ####[facility] [address] [place], [address] Cholesterol in LDL [Mass/Vol] 156 mg/dL High 0-130 [facility] Comment on above: Performed By: #### L 500.4050, L500.4100 ####[facility] [address] [place], [address] Cholesterol in VLDL [Mass/Vol] 16 mg/dL Normal 5-40 [facility] Comment on above: Performed By: #### L 500.4050, L500.4100 ####[facility] [address] [place], [address] Triglyceride [Mass/Vol] 79 mg/dL Normal [facility] Comment on above: Result Comment: The drugs N-Acetylcysteine and Metamizole may falsely depress this assay. Serum Triglycerides Reference Interval Normal <150 mg/dL Borderline high 150 - 199 mg/dL High 200 - 499 mg/dL Very High > or = 500 mg/dL Performed By: #### L 500.4050, L500.4100 ####[facility] [address] [place], [address] Surgery Visit Reporton 02-03 Surgery Visit Report [facility] [address] [place] [address] OFFICE VISIT Date of Service: 02/04/24 MR#: [id number] Acct: [id number] Name: KATI MEDLEY Rep #: [id number] : 1945 Provider: Dr. Austin perla MD Age/Sex: 78/M Location: [facility] Status: Signed Intake Vital Signs 01/22/24 09:03 02/04/24 09:15 Height 5 ft 10 in 5 ft 10 in Weight: 165 lb 8 oz 168 lb BMI 23.7 24.0 BP 138/78 H 133/78 H Blood Pressure Location Lt brachial Rt brachial Position Sitting Sitting Respiration 16 16 Pulse 52 L Pulse Source Monitor Temp 98.6 F Temp Source Temporal Pulse Oximetry (%) 95 Oxygen Delivery Method room air Intake Visit Reasons: CHANGE IN BOWEL HABITS Chief Complaint: change in bowels Senior Revenue Accountant Required: No Is patient in pain?: No Allergies No Known Allergies Allergy (Verified 02/04/24 09:16) Medications ???Medication ???Instructions ???Recorded ???Confirmed ???Type acetaminophen 500 mg tablet 500 mg PO Q6H PRN 04/04/22 02/04/24 History (Tylenol Extra Strength) fish oil PO 1XD 04/04/22 02/04/24 History osteo biflex PO 2XD 04/04/22 02/04/24 History vit K2 with D3 PO 1XD 04/04/22 02/04/24 History vitamin B comp and C no.3 15 mg-10 1 cap PO DAILY 10/17/23 02/04/24 History mg-50 mg-5 mg-300 mg capsule (B Complex Plus Vitamin C) trazodone 100 mg tablet 50 mg (1/2 x 100 mg) PO DAILY #45 10/24/23 02/04/24 Rx tabs Have you fallen in the past year?: No PFSH Medical History Abdominal bloating Recent change in frequency of bowel movements Environmental allergies Vision problems GERD (gastroesophageal reflux disease) Kidney stones Surgical History History of hernia surgery Family History Father Cancer internal organs Mother Cancer liver Grandmother Cancer maternal , throat Social History adopted: No household members: spouse housing: condominium current occupational status: employed 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 He says that lately he has been having constipation and he has bowel movements every few days. He reports taking a lot of fiber and water. He is not describe any blood in the stool. His last colonoscopy was over 10 years ago. ROS General General: No weight change, appetite, fatigue, colon cancer, breast cancer or weakness HEENT HEENT: No difficulty swallowing, eye injury, eye surgery, swollen glands or hoarseness Endo Endocrine: No thyroid disease, diabetes mellitus, thyroid cancer, Hair loss, heat intolerance or cold intolerance Skin Skin: No rash or changing moles Breast Breast: No left breast lump, right breast lump, nipple discharge, breast pain, abnormal mammogram, abnormal US or breast enlargement Musc Musculoskeletal: No back problems, arthritis, rheumatoid arthritis, gout or joint pain Cardio Cardiovascular: No murmur, pacemaker, heart disease, atrial fibrillation, high blood pressure, heart attack, heart stent, palpitations, shortness of breat with exertion or chest pain Psych Psychiatric: No depression, anxiety or hearing voices Resp Respiratory: No shortness of breath, No sleep apnea, No cough, No COPD, No asthma, No emphysema and No wheezing Gastro Gastrointestinal: Yes abdominal pain, No nausea or vomiting, No diarrhea, Yes constipation, No blood in stool, No acid reflux, No hemorrhoids, No ulcers, No gallbladder problem and No black,tarry stools Angelo Hematologic: No blood thinners, No blood disorders, No bleeding, No anemia and No blood clots Neuro Neurologic: No system reviewed and no additional complaints, except as documented, No as per HPI, No abnormal gait, No abnormal hearing, No abnormal movements, No abnormal speech, No behavioral changes, No burning sensations, No confusion, No convulsions, No disequilibrium, No dizziness, No localized weakness, No frequent falls, No headache(s), No lack of coordination, No loss of vision, No memory loss, No numbness, No other visual disturbances, No radicular pain, No restless legs, No sensory defic (more content not included)... Normal [facility] MR/BMS.IMBon 01-22-2024 MR/BMS.IMB [facility] [address] [facility] [place] [address] OFFICE VISIT Date of Service: 01/22/24 MR#: [id number] Acct: [id number] Name: KATI MEDLEY Rep #: [id number] : 1945 Provider: Dr. Mirian roy MD Age/Sex: 78/M Location: [facility] Status: Signed Intake Vital Signs 10/17/23 08:07 01/22/24 09:03 Height 5 ft 10 in 5 ft 10 in Weight: 171 lb 4 oz 165 lb 8 oz BMI 24.5 23.7 BP 131/79 H 138/78 H Blood Pressure Location Lt brachial Lt brachial Position Sitting Sitting Respiration 16 16 Pulse 52 L 52 L Pulse Source Monitor Monitor Temp 98.2 F 98.6 F Temp Source Temporal Temporal Pulse Oximetry (%) 94 95 Oxygen Delivery Method room air room air Intake Visit Reasons: Stomach pain Chief Complaint: stomach pain Senior Revenue Accountant Required: No Accompanied by: Self Is patient in pain?: Yes (stomach pain ) Pain scale (1-10): 2 Allergies No Known Allergies Allergy (Verified 01/22/24 08:55) Medications ???Medication ???Instructions ???Recorded ???Confirmed ???Type acetaminophen 500 mg tablet 500 mg PO Q6H PRN 04/04/22 01/22/24 History (Tylenol Extra Strength) fish oil PO 1XD 04/04/22 01/22/24 History osteo biflex PO 2XD 04/04/22 01/22/24 History vit K2 with D3 PO 1XD 04/04/22 01/22/24 History vitamin B comp and C no.3 15 mg-10 1 cap PO DAILY 10/17/23 01/22/24 History mg-50 mg-5 mg-300 mg capsule (B Complex Plus Vitamin C) trazodone 100 mg tablet 50 mg (1/2 x 100 mg) PO DAILY #45 10/24/23 01/22/24 Rx tabs Have you fallen in the past year?: No PFSH Medical History Environmental allergies Vision problems GERD (gastroesophageal reflux disease) Kidney stones Surgical History History of hernia surgery Family History Father Cancer internal organs Mother Cancer liver Grandmother Cancer maternal , throat Social History adopted: No household members: [facility] current occupational status: employed 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 pets and animals: No leisure activities: sports and exercise history of recent travel: No sexually active: Yes Smoking Status: Never smoker alcohol intake: never substance use type: does not use well-balanced diet: daily or most days caffeine: No eating out: rarely or never during the past year weight has: remained stable what type of physical activity do you participate in: walking nadine/episcopalian: Rastafarian seatbelt use: always do you feel safe at home: Yes HPI HPI Chief Complaint: stomach pain Details: KATI MEDLEY, is a 78 M who presents to the office today for an acute care follow-up visit. 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 Not overweight. He states lifelong, he has had bowel movements perhaps every few days. He usually will have a pattern where he has 1 large bowel movement, followed by smaller bowel movements every couple of days for period of time and then another very large bowel movement. Over the last 3 weeks, he has been having increased inconsistency in bowel movements, much smaller bowel movements overall, regularly, no large bowel movements. He has not had blood in the stool but he has noted uncomfortable bloating feeling in the low abdomen. Again sense of incomplete evacuation. He remotely had colonoscopy performed. However more recently he has been doing Cologuard with the last one being in 2021 which have been negative. He has not noticed black stool, blood in the stool. No jeaneth severe pain in the abdomen. He notes about 3 weeks ago, after having a meal at a local restaurant, he developed multiple bouts of diarrhea. He did not feel ill at the time, no fever or chills, no blood in the stool but just multiple loose bowel movements. He wondered if he simply got too much fiber with that. However having said that, it is a very consistent perhaps once weekly meal that he and his spouse share, that has plenty of vegetables, high-fiber and he wondered if he simply got too much fiber with that. I would tend to think that that is probably not the issue but probably picked up a bacterial or viral contaminant that would have led to those symptoms. However the diarrhea has long since passed now he is just having the bowel movement pattern as above. Review of systems per chart. Physical exam. Vital signs on chart. Sclera are clear. Lungs are without wheeze rhonchi rales. Heart is regular. Not tachycardic. No gallop or rub. Abd (more content not included)... Normal [facility] MR/BMS.[facility] 10-17-2023 MR/BMS.[facility] Internal Medicine [address] [place] [address] OFFICE VISIT Date of Service: 10/17/23 MR#: [id number] Acct: [id number] Name: KAIT MEDLEY Rep #: [id number] : 1945 Provider: Dr. Mirian roy MD Age/Sex: 78/M Location: [facility] Status: Signed Intake Vital Signs 04/15/23 08:03 10/17/23 08:07 Height 5 ft 10 in 5 ft 10 in Weight: 171 lb 4 oz BMI 24.5 BP 131/79 H Blood Pressure Location Lt brachial Position Sitting Respiration 16 Pulse 52 L Pulse Source Monitor Temp 98.2 F Temp Source Temporal Pulse Oximetry (%) 94 Oxygen Delivery Method room air Intake Visit Reasons: 6 M FU Chief Complaint: 6m f/u Senior Revenue Accountant Required: No Accompanied by: Self Is patient in pain?: No Allergies No Known Allergies Allergy (Verified 10/17/23 08:02) Medications ???Medication ???Instructions ???Recorded ???Confirmed ???Type acetaminophen 500 mg tablet 500 mg PO Q6H PRN 04/04/22 10/17/23 History (Tylenol Extra Strength) fish oil PO 1XD 04/04/22 10/17/23 History osteo biflex PO 2XD 04/04/22 10/17/23 History vit K2 with D3 PO 1XD 04/04/22 10/17/23 History trazodone 100 mg tablet 50 mg (1/2 x 100 mg) PO DAILY #45 04/15/23 10/17/23 Rx tabs vitamin B comp and C no.3 15 mg-10 1 cap PO DAILY 10/17/23 10/17/23 History mg-50 mg-5 mg-300 mg capsule (B Complex Plus Vitamin C) Have you fallen in the past year?: No PFSH Medical History (Updated 10/17/23 @ 09:[address] 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 78-year-old gentleman who generally speaking is been pretty healthy, takes some supplements [id number] and trazodone. See chart. He recently started on B complex vitamin as he was having some discomfort in his toes. He saw cargoman and they did vascular studies including venous and arterial all of which were normal. After that they started B complex vitamin he seems to be doing better from that standpoint. He brings in a few notes that he wrote down about things he wanted to discuss. This includes the above but also notes that he has a history of sensitive stomach which we have discussed previously. Will he had been on a medication that did help somewhat with this and it may have been something like Pro-Banthine but I do not have any thing that would have listed what that may have been. In any event we discussed previously that he has lifelong problems, generally speaking fairly mild where he has bowel movements perhaps every couple of days. Usually when he has bowel movements there fairly normal, and he feels better from a GI standpoint after bowel movements. Sometimes prior to that he will get some vague mild to moderate discomfort in the low abdomen in particular. Occasionally takes omeprazole or Tums. We spent considerable time discussing this and I do recommend he go back onto a probiotic at least perhaps every other day or every third day, broad- spectrum for 10-15 strain probiotic would be reasonable. He does get adequate fiber and as long as he is doing that he has his bowel movements again perhaps every other day or every third day. He eats overall with pretty good high-quality diet. He does get good level of physical activity. He makes sure he is getting good hydration as well. Finally, in June she was diagnosed with a variety of allergies, environmental types of allergens. He was having some mild headaches, head congestion. He states his mowing season started earlier than usual and that may have contributed. In the past he had not had problems like that so he made an ENT visit and they felt he had allergies. He was tested and found multiple allergens. He h (more content not included)... Normal [facility] Lower Ext Art Exam w/o Exerc troy 10-11-2023 Lower Ext Art Exam w/o Exercis [facility] Cardiovascular Services [address] [place] [address] Lower Ext Art Exam w/o Exercis 10/11/23 0959 MR#: [id number] Acct: [id number] Name: KATI MEDLEY Rep #: [id number] : 1945 78 From: Jon Melton MD Attending Dr: Elliot Kelley DPM Status: REG CLI Ordering Dr: Elliot Kelley DPM Date: 10/11/23 Location: [facility] Sex: M C Admitted: Reason For Study: PVD Procedure A bilateral lower extremity continuous wave Doppler with analog waveform analysis,segmental pressures,and ankle brachial indexes without exercise. Left Segmental Pressures Left brachial= 136mmHg. Left posterior tibial artery = 156mmHg. Left dorsalis pedis artery = 152mmHg. The left posterior tibial artery waveforms are triphasic. The left dorsalis pedis waveforms are triphasic. Right Segmental Pressures Right brachial= 139mmHg. Right posterior tibial artery = 148mmHg. Right dorsalis pedis artery = 146mmHg. The right posterior tibial artery waveforms are triphasic. The right dorsalis pedis waveforms are triphasic. Indices The right resting ankle brachial index is 1.06. The right ankle brachial index by the posterior tibial artery is 1.06. The right ankle brachial index by the dorsalis pedis is 1.05. The left resting ankle brachial index is 1.12. The left ankle brachial index by the posterior tibial artery is 1.12. The left ankle brachial index by the dorsalis pedis is 1.09. VL/Lower Ext Art Exam w/o Exercis Interpretation Summary Right MARY 1.06, normal. Doppler/PVR waveforms of the right leg normal at rest. Left MARY 1.12, normal. Doppler/PVR waveforms of the left leg normal at rest. Ordering Physician: Elliot Kelley Referring Physician: Mirian Ayoub Performed By: Amber Santana Ilir, RDCS 10/14/23 1021 Date Jon Melton MD CC: ELIOT Kelley; Dr. Mirian Ayoub MD Date Dictated: 10/11/23 0959 Date Transcribed: 10/14/23 1021 Hearing Officer: Signed Normal [facility] Venous Duplex US - Richard [facility] 10-11-2023 Venous Duplex US - Richard Extrem [facility] Cardi[facility] [address] [place] [address] Venous Duplex US - Richard Extrem 10/11/23 0959 MR#: [id number] Acct: [id number] Name: KATI MEDLEY Rep #: [id number] : 1945 78 From: Jon Melton MD Attending Dr: Elliot Kelley DPM Status: REG CLI Ordering Dr: Elliot Kelley DPM Date: 10/11/23 Location: [facility] Sex: M C Admitted: Reason For Study: EDEMA RIGHT LEFT GSV is normal. GSV is normal. CFV is compressible, spontaneous, phasic, CFV is compressible, spontaneous, phasic, competent and demonstrates normal competent, and demonstrates normal augmentation. augmentation. FV is compressible, spontaneous, phasic, FV is compressible, spontaneous, phasic, competent and demonstrates normal competent and demonstrates normal augmentation. augmentation. POP V is compressible, spontaneous, phasic, POP V is compressible, spontaneous, phasic, competent and demonstrates normal competent and demonstrates normal augmentation. augmentation. T/P Trunk is compressible. T/P Trunk is compressible. PTV is compressible. PTV is compressible. RT PerV is compressible. LT PerV is compressible. Procedure This is a venous duplex using B-mode, color flow and spectral Doppler. Exam performed in department. A preliminary report was called and/or faxed to Dr. Kelley @ [phone] @ 10:45 am. VL/Venous Duplex US - Richard Extrem Interpretation Summary Deep veins of the bilateral lower extremities are patent and compressible segmentally. There is no evidence of bilateral lower extremity deep vein thrombosis. The bilateral great saphenous veins appear patent and compressible segmentally. Ordering Physician: Elliot Kelley Referring Physician: Mirian Ayoub Performed By: Amber Santana, RDCS, RVT 10/14/23 1020 Date Jon Melton MD CC: ELIOT Kelley; Dr. Mirian Ayoub MD Date Dictated: 10/11/23958 Date Transcribed: 10/14/23 1020 Hearing Officer: Signed Normal [facility] CBC W/Diff, Automatedon 07-0 -2023 Absolute Lymph 2.41 X10 3/uL Normal 0.83-4.51 [facility] Comment on above: Performed By: #### L 100.0100, L500.4050, L500.4100, L501.9910, L506.1000, L501.9520 #### [facility] [address] [place], [address] Absolute Neut 2.7 X10 3/uL Normal 2.0-7.7 [facility] Comment on above: Performed By: #### L 100.0100, L500.4050, L500.4100, L501.9910, L506.1000, L501.9520 #### [facility] [address] [place], [address] Basophils/100 WBC (Bld) 0.7 % Normal 0-1 [facility] Comment on above: Performed By: #### L 100.0100, L500.4050, L500.4100, L501.9910, L506.1000, L501.9520 #### [facility] [address] [place], [address] Eosinophils/100 WBC (Bld) 3.4 % Normal 0-5 [facility] Comment on above: Performed By: #### L 100.0100, L500.4050, L500.4100, L501.9910, L506.1000, L501.9520 #### [facility] [address] [place], [address] Erythrocyte distribution width (RBC) [Ratio] 13.3 % Normal 11.6-14.6 [facility] Comment on above: Performed By: #### L 100.0100, L500.4050, L500.4100, L501.9910, L506.1000, L501.9520 #### [facility] [address] [place], [address] Hematocrit (Bld) [Volume fraction] 43.0 % Normal 40-54 [facility] Comment on above: Performed By: #### L 100.0100, L500.4050, L500.4100, L501.9910, L506.1000, L501.9520 #### [facility] [address] [place], [address] Hemoglobin (Bld) [Mass/Vol] 14.3 g/dL Normal 13.0-16.5 [facility] Comment on above: Performed By: #### L 100.0100, L500.4050, L500.4100, L501.9910, L506.1000, L501.9520 #### [facility] [address] [place], [address] IG% 0.300 Normal 0.0-0.9 [facility] Comment on above: Result Comment: IG% - Immature Granulocytes (promyelocytes, myelocytes and metamyelocytes) > 1% indicates that a LEFT SHIFT is Present. Performed By: #### L 100.0100, L500.4050, L500.4100, L501.9910, L506.1000, L501.9520 #### [facility] [address] [place], [address] Lymphocytes/100 WBC (Bld) 40.4 % Normal 19-41 [facility] Comment on above: Performed By: #### L 100.0100, L500.4050, L500.4100, L501.9910, L506.1000, L501.9520 #### [facility] [address] [place], [address] MCH (RBC) [Entitic mass] 31.2 pg Normal 27.0-32.0 [facility] Comment on above: Performed By: #### L 100.0100, L500.4050, L500.4100, L501.9910, L506.1000, L501.9520 #### [facility] [address] [place], [address] MCHC (RBC) [Mass/Vol] 33.3 g/dL Normal 32-36 [facility] Comment on above: Performed By: #### L 100.0100, L500.4050, L500.4100, L501.9910, L506.1000, L501.9520 #### [facility] [address] [place], [address] MCV (RBC) [Entitic vol] 93.9 fL Normal 80-94 [facility] Comment on above: Performed By: #### L 100.0100, L500.4050, L500.4100, L501.9910, L506.1000, L501.9520 #### [facility] [address] [place], [address] Monocytes/100 WBC (Bld) 10.4 % High 0-10 [facility] Comment on above: Performed By: #### L 100.0100, L500.4050, L500.4100, L501.9910, L506.1000, L501.9520 #### [facility] [address] [place], [address] Neutrophils/100 WBC (Bld) 44.8 % Low 47-70 [facility] Comment on above: Performed By: #### L 100.0100, L500.4050, L500.4100, L501.9910, L506.1000, L501.9520 #### [facility] [address] [place], [address] Nucleated RBC (Bld) [#/Vol] 0 10*3/uL Normal 0-5 [facility] Comment on above: Performed By: #### L 100.0100, L500.4050, L500.4100, L501.9910, L506.1000, L501.9520 #### [facility] [address] [place], [address] Platelet mean volume (Bld) [Entitic vol] 9.3 fL Normal 6.2-12.0 [facility] Comment on above: Performed By: #### L 100.0100, L500.4050, L500.4100, L501.9910, L506.1000, L501.9520 #### [facility] [address] [place], [address] Platelets (Bld) [#/Vol] 208 10*3/uL Normal 150-450 [facility] Comment on above: Performed By: #### L 100.0100, L500.4050, L500.4100, L501.9910, L506.1000, L501.9520 #### [facility] [address] [place], [address] RBC (Bld) [#/Vol] 4.58 10*6/uL Low 4.6-6.[address] [facility] Comment on above: Performed By: #### L 100.0100, L500.4050, L500.4100, L501.9910, L506.1000, L501.9520 #### [facility] [address] [place], [address] RDW SD 45.9 fl High 35.1-43.9 [facility] Comment on above: Performed By: #### L 100.0100, L500.4050, L500.4100, L501.9910, L506.1000, L501.9520 #### [facility] [address] [place], [address] WBC (Bld) [#/Vol] 6.0 10*3/uL Normal 4.4-11.0 [facility] Comment on above: Performed By: #### L 100.0100, L500.4050, L500.4100, L501.9910, L506.1000, L501.9520 #### [facility] [address] [place], [address] Comprehensive Metabolic Prof wyon 10-07-2023 Albumin [Mass/Vol] 3.4 g/dL Normal 3.2-5.0 [facility] Comment on above: Performed By: #### L 100.0100, L500.4050, L500.4100, L501.9910, L506.1000, L501.9520 #### [facility] [address] [place], [address] Albumin/Globulin [Mass ratio] 0.9 {ratio} Normal 0.9-2.4 [facility] Comment on above: Performed By: #### L 100.0100, L500.4050, L500.4100, L501.9910, L506.1000, L501.9520 #### [facility] [address] [place], [address] ALK P 77 U/L Normal 45-117 [facility] Comment on above: Performed By: #### L 100.0100, L500.4050, L500.4100, L501.9910, L506.1000, L501.9520 #### [facility] [address] [place], [address] ALT [Catalytic activity/Vol] 20 U/L Normal 16-61 [facility] Comment on above: Performed By: #### L 100.0100, L500.4050, L500.4100, L501.9910, L506.1000, L501.9520 #### [facility] [address] [place], [address] AST [Catalytic activity/Vol] 10 U/L Low 15-37 [facility] Comment on above: Performed By: #### L 100.0100, L500.4050, L500.4100, L501.9910, L506.1000, L501.9520 #### [facility] [address] [place], [address] Bilirubin [Mass/Vol] 0.60 mg/dL Normal 0.20-1.00 [facility] Comment on above: Result Comment: For patients on eltrombopag therapy, use of Dimension [place] TBIL is not recommended. Performed By: #### L 100.0100, L500.4050, L500.4100, L501.9910, L506.1000, L501.9520 #### [facility] [address] [place], [address] BUN/CRE 13.3 RATIO Normal 10-20 [facility] Comment on above: Performed By: #### L 100.0100, L500.4050, L500.4100, L501.9910, L506.1000, L501.9520 #### [facility] [address] [place], [address] CA,Total 8.7 mg/dL Normal 8.5-10.1 [facility] Comment on above: Performed By: #### L 100.0100, L500.4050, L500.4100, L501.9910, L506.1000, L501.9520 #### [facility] [address] [place], [address] Chloride [Moles/Vol] 107 mmol/L Normal 98-107 [facility] Comment on above: Performed By: #### L 100.0100, L500.4050, L500.4100, L501.9910, L506.1000, L501.9520 #### [facility] [address] [place], [address] CO2 [Moles/Vol] 27.0 mmol/L Normal 21.0-32.0 [facility] Comment on above: Performed By: #### L 100.0100, L500.4050, L500.4100, L501.9910, L506.1000, L501.9520 #### [facility] [address] [place], [address] Creatinine [Mass/Vol] 1.05 mg/dL Normal 0.70-1.30 [facility] Comment on above: Result Comment: The validity of the calculated GFR GFRAA in patients over 70 years has not been determined. Clinical correlation is essential. Performed By: #### L 100.0100, L500.4050, L500.4100, L501.9910, L506.1000, L501.9520 #### [facility] [address] [place], [address] EST GFR - AA 88 mL/min Normal >60 [facility] Comment on above: Result Comment: Afri can Austrian GFR Calc Performed By: #### L 100.0100, L500.4050, L500.4100, L501.9910, L506.1000, L501.9520 #### [facility] [address] [place], [address] GAP 4 Low 5-15 [facility] Comment on above: Performed By: #### L 100.0100, L500.4050, L500.4100, L501.9910, L506.1000, L501.9520 #### [facility] [address] [place], [address] GFR/1.73 sq M.predicted among non-blacks MDRD (S/P/Bld) [Vol rate/Area] 73 mL/min/{1.73_m2} Normal >60 [facility] Comment on above: Result Comment: Non- GFR Calc Performed By: #### L 100.0100, L500.4050, L500.4100, L501.9910, L506.1000, L501.9520 #### [facility] [address] [place], [address] Globulin (S) [Mass/Vol] 3.7 g/dL Normal 2.2-4.2 [facility] Comment on above: Performed By: #### L 100.0100, L500.4050, L500.4100, L501.9910, L506.1000, L501.9520 #### [facility] [address] [place], [address] Glucose [Mass/Vol] 94 mg/dL Normal 74-106 [facility] Comment on above: Performed By: #### L 100.0100, L500.4050, L500.4100, L501.9910, L506.1000, L501.9520 #### [facility] [address] [place], [address] Potassium [Moles/Vol] 3.9 mmol/L Normal 3.5-5.1 [facility] Comment on above: Performed By: #### L 100.0100, L500.4050, L500.4100, L501.9910, L506.1000, L501.9520 #### [facility] [address] [place], [address] Sodium [Moles/Vol] 138 mmol/L Normal 136-145 [facility] Comment on above: Performed By: #### L 100.0100, L500.4050, L500.4100, L501.9910, L506.1000, L501.9520 #### [facility] [address] [place], [address] T PROT 7.1 g/dL Normal 6.4-8.2 [facility] Comment on above: Performed By: #### L 100.0100, L500.4050, L500.4100, L501.9910, L506.1000, L501.9520 #### [facility] [address] [place], [address] Urea nitrogen [Mass/Vol] 14 mg/dL Normal 7-18 [facility] Comment on above: Performed By: #### L 100.0100, L500.4050, L500.4100, L501.9910, L506.1000, L501.9520 #### [facility] [address] [place], [address] Lipid Profileon 10-07-2023 Cholesterol [Mass/Vol] 237 mg/dL High 200 [facility] Comment on above: Result Comment: <200 mg/dL Desirable 200-240 mg/dL Borderline >240 mg/dL High Risk Performed By: #### L 100.0100, L500.4050, L500.4100, L501.9910, L506.1000, L501.9520 ####[facility] [address] [place], [address] Cholesterol in HDL [Mass/Vol] 54 mg/dL Normal [facility] Comment on above: Result Comment: The drugs N-Acetylcysteine and Metamizole may falsely depress this assay. Reference Range HDL <40 mg/dL Low HDL Cholesterol HDL >or= 60 mg/dL High HDL Cholesterol Performed By: #### L 100.0100, L500.4050, L500.4100, L501.9910, L506.1000, L501.9520 ####[facility] [address] [place], [address] Cholesterol in LDL [Mass/Vol] 166 mg/dL High 0-130 [facility] Comment on above: Performed By: #### L 100.0100, L500.4050, L500.4100, L501.9910, L506.1000, L501.9520 ####[facility] [address] [place], [address] Cholesterol in VLDL [Mass/Vol] 17 mg/dL Normal 5-40 [facility] Comment on above: Performed By: #### L 100.0100, L500.4050, L500.4100, L501.9910, L506.1000, L501.9520 ####[facility] [address] [place], [address] Triglyceride [Mass/Vol] 84 mg/dL Normal [facility] Comment on above: Result Comment: The drugs N-Acetylcysteine and Metamizole may falsely depress this assay. Serum Triglycerides Reference Interval Normal <150 mg/dL Borderline high 150 - 199 mg/dL High 200 - 499 mg/dL Very High > or = 500 mg/dL Performed By: #### L 100.0100, L500.4050, L500.4100, L501.9910, L506.1000, L501.9520 ####[facility] [address] [place], [address] PSA,Total - Annual Screenon 10-07-2023 PSA,TOT SCREEN 0.71 ng/mL Normal 0.00-4.00 [facility] Comment on above: Result Comment: This test was performed using the TPSA assay method for the [employer] chemistry system. Values obtained with different assay methods cannot be used interchangably. When changing PSA assays in the course of monitoring a patient, additional sequential testing should be carried out to confirm baseline values. Performed By: #### L 100.0100, L500.4050, L500.4100, L501.9910, L506.1000, L501.9520 ####[facility] [address] [place], [place], [id number] Thyroid Stim Hormone (TSH)on 10-07-2023 TSH 0.92 uIU/mL Normal 0.358-3.74 [facility] Comment on above: Performed By: #### L 100.0100, L500.4050, L500.4100, L501.9910, L506.1000, L501.9520 ####[facility] [address] [place], [address] Vitamin D,25 Hydroxyon 10-06 Vitamin D 25-OH 75.4 ng/mL Normal [facility] Comment on above: Result Comment: Marcelle min D 25(OH) Status Range Deficiency <20 ng/mL (50nmol/L) Insufficiency 20 - 30 ng/mL (50 - 75 nmol/L) Sufficiency 30 - 100 ng/mL (75 - 250 nmol/L) Toxicity >100 ng/mL (>250 nmol/L) Performed By: #### L 100.0100, L500.4050, L500.4100, L501.9910, L506.1000, L501.9520 #### [facility] [address] [place], [address] Gram stain for investigation of transfusion reactionOrdered By: Erlin Rangel on 08-08-2023 Microscopic observation Gram stain Nom (Unsp spec) [facility] No Panel InformationOrdered By: Erlin Rangel on 08-08-2023 Nasopharyngeal Culture [facility] Basophil percentageOrdered B y: Mirian Ayoub on 10-19-2022 Cholesterol [Mass/Vol] 222 mg/dL <200 [facility] Comment on above: <200 mg/dL Desirable 200-240 mg/dL Borderline >240 mg/dL High Risk Triglyceride [Mass/Vol] 68 mg/dL <199 [facility] Comment on above: The drugs N-Acetylcy steine and Metamizole may falsely depress this assay.Serum Triglycerides Reference Interval Normal <150 mg/dL Borderline high 150 - 199 mg/dL High 200 - 499 mg/dL Very High > or = 500 mg/dL No Panel InformationOrdered By: Mirian Ayoub on 10-19-2022 Thyroid Stimulating Hormone (TSH) 0.88 uIU/mL 0.358-3.74 [facility] Serum or plasma cholesterol in HDL measurement (mass/volume)Ordered By: Mirian Ayoub on 10-19-2022 Cholesterol in HDL [Mass/Vol] 56 mg/dL >40 [facility] Comment on above: The drugs N-Acetylcy steine and Metamizole may falsely depress this assay. Reference Range HDL <40 mg/dL Low HDL Cholesterol HDL >or= 60 mg/dL High HDL Cholesterol Serum or plasma cholesterol in VLDL measurement (mass/volume)Ordered By: Mirian Ayoub on 10-19-2022 Cholesterol in VLDL [Mass/Vol] 14 mg/dL 5-40 [facility] Serum or plasma low density lipoprotein (LDL) cholesterol measurement (mass/volume)Ordered By: Mirina Ayoub on 10-19-2022 Cholesterol in LDL [Mass/Vol] 152 mg/dL 0-130 [facility] Absolute lymphocyte countOrd ered By: Mirian Ayoub on 10-01-2022 Lymphocytes Auto (Unsp spec) [#/Vol] 1.82 10*3/uL 0.83-4.51 [facility] Basophil percentageOrdered B y: Mirian Ayoub on 10-01-2022 Basophils/100 WBC (Bld) 0.8 % 0-1 [facility] Bilirubin [Mass/Vol] 0.70 mg/dL 0.20-1.00 [facility] Comment on above: For patients on eltr ombopag therapy, use of Dimension [place] TBIL is not recommended. Chloride [Moles/Vol] 108 mmol/L 98-107 [facility] Cholesterol [Mass/Vol] 249 mg/dL <200 [facility] Comment on above: <200 mg/dL Desirable 200-240 mg/dL Borderline >240 mg/dL High Risk Eosinophils/100 WBC (Bld) 2.7 % 0-5 [facility] Glucose [Mass/Vol] 96 mg/dL 74-106 [facility] Neutrophils (Bld) [#/Vol] 3.3 10*3/uL 2.0-7.7 [facility] Neutrophils/100 WBC (Bld) 55.9 % 47-70 [facility] Potassium [Moles/Vol] 3.8 mmol/L 3.5-5.1 [facility] Protein [Mass/Vol] 7.3 g/dL 6.4-8.2 [facility] Sodium [Moles/Vol] 139 mmol/L 136-145 [facility] Triglyceride [Mass/Vol] 75 mg/dL <199 [facility] Comment on above: The drugs N-Acetylcy steine and Metamizole may falsely depress this assay.Serum Triglycerides Reference Interval Normal <150 mg/dL Borderline high 150 - 199 mg/dL High 200 - 499 mg/dL Very High > or = 500 mg/dL WBC (Bld) [#/Vol] 5.9 10*3/uL 4.4-11.0 [facility] Blood erythrocytes count (nu mber/volume)Ordered By: Mirian Ayoub on 10-01-2022 RBC (Bld) [#/Vol] 4.85 10*6/uL 4.6-6.[address] [facility] Blood hemoglobin measurement (mass/volume)Ordered By: Mirian Ayoub on 10-01-2022 Hemoglobin (Bld) [Mass/Vol] 14.8 g/dL 13.0-16.5 [facility] Blood lymphocytes/100 leukoc ytesOrdered By: Mirian Ayoub on 10-01-2022 Lymphocytes/100 WBC (Bld) 30.8 % 19-41 [facility] Blood monocytes/100 leukocyt esOrdered By: Mirian Ayoub on 10-01-2022 Monocytes/100 WBC (Bld) 9.3 % 0-10 [facility] Blood platelet mean volumeOr dered By: Mirian Ayoub on 10-01-2022 Platelet mean volume (Bld) [Entitic vol] 9.2 fL 6.2-12.0 [facility] Determination of erythrocyte mean corpuscular volume (MCV)Ordered By: Mirian Ayoub on 10-01-2022 MCV (RBC) [Entitic vol] 92.2 fL 80-94 [facility] Hematocrit Auto (Bld) [Volum e fraction]Ordered By: Mirian Ayoub on 10-01-2022 Hematocrit (Bld) [Volume fraction] 44.7 % 40-54 [facility] Laboratory - Chemistry and C hemistry - challengeOrdered By: Mirian Ayoub on 10-01-2022 ALP [Catalytic activity/Vol] 80 U/L 45-117 [facility] ALT [Catalytic activity/Vol] 20 U/L 16-61 [facility] CO2 [Moles/Vol] 27.0 mmol/L 21.0-32.0 [facility] Globulin (S) [Mass/Vol] 3.9 g/dL 2.2-4.2 [facility] Urea nitrogen/Creatinine [Mass ratio] 11.7 mg/mg 10-20 [facility] - Hematology and Cell countsOrdered By: Mirian Ayoub on 10-01-2022 Erythrocyte distribution width (RBC) [Entitic vol] 45.2 fL 35.1-43.9 [facility] Erythrocyte distribution width (RBC) [Ratio] 13.2 % 11.6-14.6 [facility] Immature granulocytes/100 WBC (Bld) 0.500 % 0.0-0.9 [facility] Comment on above: IG% - Immature Granu locytes (promyelocytes, myelocytes and metamyelocytes) > 1% indicates that a LEFT SHIFT is Present. MCH (RBC) [Entitic mass] 30.5 pg 27.0-32.0 [facility] Nucleated RBC/100 WBC (Bld) [Ratio] 0 % 0-5 [facility] MCHC Auto (RBC) [Mass/Vol]Or dered By: Mirian Ayoub on 10-01-2022 MCHC (RBC) [Mass/Vol] 33.1 g/dL 32-36 [facility] No Panel InformationOrdered By: Mirian Ayoub on 10-01-2022 Estimated GFR (MDRD) Amer 83 mL/min >60 [facility] Comment on above: GFR Calc Estimated GFR (MDRD) Non-Af Amer 68 mL/min >60 [facility] Comment on above: Non- GFR Calc Prostate Specific Antigen Screen 0.68 ng/mL 0.00-4.00 [facility] Comment on above: This test was perfor med using the TPSA assay method for the[employer] chemistry system. Values obtained with differentassay methods cannot be used interchangably.When changing PSA assays in the course of monitoring apatient, additional sequential testing should be carriedout to confirm baseline values. Thyroid Stimulating Hormone (TSH) 0.87 uIU/mL 0.358-3.74 [facility] Vitamin D 25-Hydroxy 88.7 ng/mL [facility] Comment on above: Vitamin D 25(OH) Sta tus Range Deficiency <20 ng/mL (50nmol/L) Insufficiency 20 - 30 ng/mL (50 - 75 nmol/L) Sufficiency 30 - 100 ng/mL (75 - 250 nmol/L) Toxicity >100 ng/mL (>250 nmol/L) Platelets bldOrdered By: Lyndsay Ayoub on 10-01-2022 Platelets (Bld) [#/Vol] 207 10*3/uL 150-450 [facility] Serum or plasma albumin alessandra urement (mass/volume)Ordered By: Mirian Ayoub on 10-01-2022 Albumin [Mass/Vol] 3.4 g/dL 3.2-5.0 [facility] Serum or plasma albumin/glob ulin mass ratioOrdered By: Mirian Ayoub on 10-01-2022 Albumin/Globulin [Mass ratio] 0.9 {ratio} 0.9-2.4 [facility] Serum or plasma calcium alessandra urement (mass/volume)Ordered By: Mirian Ayoub on 10-01-2022 Calcium [Mass/Vol] 9.0 mg/dL 8.5-10.1 [facility] Serum or plasma cholesterol in HDL measurement (mass/volume)Ordered By: Mirian Ayoub on 10-01-2022 Cholesterol in HDL [Mass/Vol] 55 mg/dL >40 [facility] Comment on above: The drugs N-Acetylcy steine and Metamizole may falsely depress this assay. Reference Range HDL <40 mg/dL Low HDL Cholesterol HDL >or= 60 mg/dL High HDL Cholesterol Serum or plasma cholesterol in VLDL measurement (mass/volume)Ordered By: Mirian Ayoub on 10-01-2022 Cholesterol in VLDL [Mass/Vol] 15 mg/dL 5-40 [facility] Serum or plasma creatinine m easurement (mass/volume)Ordered By: Mirian Ayoub on 10-01-2022 Creatinine [Mass/Vol] 1.11 mg/dL 0.70-1.30 [facility] Comment on above: The validity of the calculated GFR & GFRAA in patients over 70 years has not been determined. Clinical correlation is essential. Serum or plasma low density lipoprotein (LDL) cholesterol measurement (mass/volume)Ordered By: Mirian Ayoub on 10-01-2022 Cholesterol in LDL [Mass/Vol] 179 mg/dL 0-130 [facility] Serum or plasma urea nitroge n measurement (mass/volume)Ordered By: Mirian Ayoub on 10-01-2022 Urea nitrogen [Mass/Vol] 13 mg/dL 7-18 [facility] Thin prep Papanicolaou smear with manual screeningOrdered By: Mirian Ayoub on 10-01-2022 Thin prep Papanicolaou smear with manual screening 16 U/L 15-37 [facility] Thin prep Papanicolaou smear with manual screening 4 5-15 [facility] Vital Signs Date Time Vital Sign Value Performing Clinician Faci lity 09-16-2024 08:08-0400 Body height 177.[address] Mirian Ayoub MD Work Phone: [facility] 09-16-2024 08:08-0400 Body mass index (BMI) [Ratio] 24.3 kg/m2 Dr. Mirian Ayoub MD Work Phone: [facility] 09-16-2024 08:08-0400 Body temperature 98.2 [degF] Dr. Mirian Ayoub MD Work Phone: [facility] 09-16-2024 08:08-0400 Body weight 76.[address] Mirian Ayoub MD Work Phone: [facility] 09-16-2024 08:08-0400 Diastolic blood pressure 82 mm[Hg] Dr. Mirian Ayoub MD Work Phone: [facility] 09-16-2024 08:08-0400 Heart rate 47 /min Dr. Mirian Ayoub MD Work Phone: [facility] 09-16-2024 08:08-0400 Respiratory rate 16 /min Dr. Mirian Ayoub MD Work Phone: [facility] 09-16-2024 08:08-0400 SaO2% (BldA) [Mass fraction] 96 % Dr. Mirian Ayoub MD Work Phone: [facility] 09-16-2024 08:08-0400 Systolic blood pressure 160 mm[Hg] Dr. Mirian Ayoub MD Work Phone: [facility] 07-02-2024 09:05-0400 Body mass index (BMI) [Ratio] 24.2 kg/m2 Dr. Mirian Ayoub MD Work Phone: [facility] 07-02-2024 09:05-0400 Body temperature 98.2 [degF] Dr. Mirian Ayoub MD Work Phone: [facility] 07-02-2024 09:05-0400 Body weight 76.[address] Mirian Ayoub MD Work Phone: [facility] 07-02-2024 09:05-0400 Diastolic blood pressure 70 mm[Hg] Dr. Mirian Ayoub MD Work Phone: [facility] 07-02-2024 09:05-0400 Heart rate 63 /min Dr. Mirian Ayoub MD Work Phone: [facility] 07-02-2024 09:05-0400 Respiratory rate 16 /min Dr. Mirian Ayoub MD Work Phone: [facility] 07-02-2024 09:05-0400 SaO2% (BldA) [Mass fraction] 97 % Dr. Mirian Ayoub MD Work Phone: [facility] 07-02-2024 09:05-0400 Systolic blood pressure 115 mm[Hg] Dr. Mirian Ayoub MD Work Phone: [facility] 05-28-2024 09:14-0500 Diastolic blood pressure 77 mm[Hg] Dr. Mirian Ayoub MD Work Phone: [facility] 05-28-2024 09:14-0500 Heart rate 47 /min Dr. Mirian Ayoub MD Work Phone: [facility] 05-28-2024 09:14-0500 Systolic blood pressure 119 mm[Hg] Dr. Mirian Ayoub MD Work Phone: [facility] 05-28-2024 08:11-0500 Body mass index (BMI) [Ratio] 25 kg/m2 Dr. Mirian Ayoub MD Work Phone: [facility] 05-28-2024 08:11-0500 Body temperature 98.4 [degF] Dr. Mirian Ayoub MD Work Phone: [facility] 05-28-2024 08:11-0500 Body weight 78.[address] Mirian Ayoub MD Work Phone: [facility] 05-28-2024 08:11-0500 Respiratory rate 16 /min Dr. Mirian Ayoub MD Work Phone: [facility] 05-28-2024 08:11-0500 SaO2% (BldA) [Mass fraction] 97 % Dr. Mirian Ayoub MD Work Phone: [facility] 05-22-2024 08:15-0500 Body weight 77.[address] Mirian Ayoub MD Work Phone: [facility] 05-21-2024 09:54-0500 Body mass index (BMI) [Ratio] 24.3 kg/m2 Dr. Mirian Ayoub MD Work Phone: [facility] 05-20-2024 15:54-0500 Body mass index (BMI) [Ratio] 24.3 kg/m2 Dr. Mirian Ayoub MD Work Phone: [facility] 05-20-2024 15:54-0500 Body weight 77.[address] Mirian Ayoub MD Work Phone: [facility] 05-20-2024 15:54-0500 Diastolic blood pressure 83 mm[Hg] Dr. Mirian Ayoub MD Work Phone: [facility] 05-20-2024 15:54-0500 Heart rate 55 /min Dr. Mirian Ayoub MD Work Phone: [facility] 05-20-2024 15:54-0500 Respiratory rate 18 /min Dr. Mirian Ayoub MD Work Phone: [facility] 05-20-2024 15:54-0500 Systolic blood pressure 138 mm[Hg] Dr. Mirian Ayoub MD Work Phone: [facility] 10-15-2022 08:34-0400 Body height 177.[address] Mirian Ayoub Work Phone: [facility] 10-15-2022 08:34-0400 Body mass index (BMI) [Ratio] 24.8 kg/m2 Dr. Mirian Ayoub Work Phone: [facility] 10-15-2022 08:34-0400 Body temperature 97.2 [degF] Dr. Mirian Ayoub Work Phone: [facility] 10-15-2022 08:34-0400 Body weight 78.[address] Mirian Ayoub Work Phone: [facility] 10-15-2022 08:34-0400 Diastolic blood pressure 79 mm[Hg] Dr. Mirian Ayoub Work Phone: [facility] 10-15-2022 08:34-0400 Heart rate 58 /min Dr. Mirian Ayoub Work Phone: [facility] 10-15-2022 08:34-0400 Respiratory rate 16 /min Dr. Mirian Ayoub Work Phone: [facility] 10-15-2022 08:34-0400 SaO2% (BldA) [Mass fraction] 96 % Dr. Mirian Ayoub Work Phone: [facility] 10-15-2022 08:34-0400 Systolic blood pressure 124 mm[Hg] Dr. Mirian Ayoub Work Phone: [facility] Encounters Encounter Date Encounter Type Care Provider Facility Start: 09-16-2024 End: 09-16-[address] Mirian Ayoub MD -[facility] Work Phone: Start: 09-16-2024 End: 09-16-[address] Mirian Ayoub MD Work Phone: [facility] Work Phone: Start: 08-04-2024 ambulatory Miriansera Ayoub Facility :[facility] Start: 07-21-2024 End: 07-21-2024 ambulatory Anna Kuldip Díaz [facility] Start: 07-02-2024 End: 07-02-[address] Mirian Ayoub MD -[facility] Work Phone: Start: 07-02-2024 End: 07-02-2024 ambulatory Mirian Mega Facility:[facility] Start: 05-28-2024 End: 05-28-[address] Mirian Ayoub MD -[facility] Work Phone: Start: 05-28-2024 End: 05-28-2024 ambulatory Miriansera Ayoub Facility:[facility] Start: 05-22-2024 End: 05-22-2024 Admission to same day surgery center Dr. Robby Hastings MD -[employer]/Special Procedures Work Phone: Start: 05-22-2024 End: 05-22-2024 ambulatory [facility] Facility:[facility] Start: 05-20-2024 End: 05-20-[address] Robby Hastings MD -[facility] Work Phone: Start: 05-20-2024 End: 05-20-2024 ambulatory [facility] Facility:[facility] Start: 05-20-2024 End: 05-20-2024 ambulatory [facility] Facility:[facility] Start: 05-18-2024 ambulatory [facility] Facility :[facility] Start: 05-18-2024 End: 05-18-2024 ambulatory Mirian Mega Facility:[facility] Start: 05-14-2024 End: 05-14-2024 ambulatory Miriansera HemphillMega Facility:[facility] Start: 03-31-2024 End: 03-31-2024 ambulatory [facility] Facility:[facility] Start: 03-18-2024 End: 03-18-2024 ambulatory [facility] Start: 03-13-2024 End: 03-13-2024 ambulatory Mirian Mega Facility:[facility] Start: 02-04-2024 End: 02-04-2024 ambulatory Mirian Mega Facility:[facility] Start: 01-22-2024 End: 01-22-2024 ambulatory Miriansera HemphillMega Facility:[facility] Start: 10-17-2023 End: 10-17-2023 ambulatory Mirian Mega [facility] Start: 10-11-[address] [facility] Start: 10-11-2023 End: 10-11-2023 ambulatory Elliot Kelley Facility:[facility] Start: 10-07-2023 End: 10-07-2023 ambulatory [facility] Facility:[facility] Start: 08-08-2023 End: 08-08-2023 ambulatory [facility] Work Phone: Start: 08-08-2023 End: 08-08-2023 Patient encounter procedure [facility] Work Phone: Start: 10-19-2022 End: 10-19-[address] Mirian Ayoub Work Phone: [facility] Work Phone: Start: 10-19-2022 End: 10-19-[address] Mirian Ayoub Work Phone: [facility] Work Phone: Start: 10-15-2022 End: 10-15-[address] Mirian Ayoub Work Phone: [facility] Work Phone: Start: 10-01-2022 End: 10-01-2022 ambulatory [facility] Work Phone: Start: 10-01-2022 End: 10-01-2022 Patient encounter procedure [facility] Work Phone: Start: 11-23-2021 Refill Florentin sutton MD Work Phone: [facility] [place] Comment on above: Refill Request Procedures Date Procedure Procedure Detail Performing Clinician Start: 05-20-2024 Measurement of renal function Dr. Mirian Ayoub MD Work Phone: Comment on above: GFR Calc Start: 08-08-2023 Investigation of transfusion reaction Start: 08-08-2023 Nasopharyngeal Culture Start: 12-19-2020 Adult depression scr eening assessment Florentin Arceo MD Work Phone: Plan of Treatment Date Care Activity Detail Author Start: 12-18-2024 Diabetes Screening Diabetes Screening [facility] Start: 05-22-2024 Patient discharge [facility] Start: 04-08-2024 Advance Directive Discussion Advance Directive Discussion [facility] Start: 12-08-2023 Covid-19 Vaccine ( season) Covid-19 Vaccine ( season) [facility] Start: 12-08-2023 Influenza vaccination Influenza Vaccine (#1) [facility] Start: 07-14-2023 [facility] Start: 12-07-2022 DIABETES SCREEN DIABETES SCREEN [facility] Start: 12-21-2021 COLOGUARD (FIT-DNA) COLOGUARD (FIT-DNA) [facility] Start: 12-19-2021 Adult depression screening assessment DEPRESSION SCREENING [facility] Start: 12-07-2021 Influenza vaccination INFLUENZA (#1) [facility] Start: 06-17-2021 COVID-19 VACCINE (4 - Booster for Moderna series) COVID-19 VACCINE (4 - Booster for Moderna series) [facility] Start: 04-08-2021 ADVANCE DIRECTIVE DISCUSSION ADVANCE DIRECTIVE DISCUSSION [facility] Start: 2020 RSV Vaccine (1 - 1-dose 75+ series) RSV Vaccine (1 - 1-dose 75+ series) [facility] Start: 1963 Anxiety Screening Anxiety Screening [facility] Start: 1963 Depression Screening Depression Screening [facility] Catheterization of l eft heart [facility] CBC W Auto Different ial panel - Blood [facility] Cobalamin (Vitamin B 12) [Mass/volume] in Serum or Plasma [facility] Comprehensive metabo lic 1999 panel - Serum or Plasma [facility] Lipid 1996 panel - S norman or Plasma [facility] MR Brain contrast [facility] MRA Head vessels contrast [facility] Patient referral [facility] Work Phone: Prostate specific an tigen measurement [facility] Testosterone Free [Mass/volume] in Serum or Plasma [facility] Testosterone measurement [facility] Thyroid stimulating hormone measurement [facility] Vitamin D, 25-hydrox y measurement [facility] Immunizations Immunization Date Immunization Notes Care Provider Fa salliety 02-25-2023 influenza, injectabl e, quadrivalent, preservative free [facility] 02-25-2023 influenza virus vacc ine, unspecified formulation Anna Díaz LPN [facility] 03-22-2022 Covid Moderna Bivale nt Booster; Translations: [Covid Moderna Bivalent Booster] [facility] 12-25-2021 influenza (HD-IIV4) vaccine, age 65+ yr, high dose, quadrivalent, PF (FLUZONE HIGH-DOSE) Anna Díaz [facility] 10-23-2021 Covid Moderna Bivale nt Booster; Translations: [Covid Moderna Bivalent Booster] [facility] 02-17-2021 Covid Moderna Bivale nt Booster; Translations: [Covid Moderna Bivalent Booster] [facility] 02-17-2021 COVID-19 vaccine, fu ll dose (MODERNA) Florentin Arceo MD Work Phone: [facility] Work Phone: 12-19-2020 influenza, high-dose , quadrivalent vaccine (FLUZONE HIGH DOSE QUADRIVALENT) Florentin Arceo MD Work Phone: [facility] Work Phone: 06-15-2020 Covid (Moderna) [facility] 05-19-2020 Covid (Moderna) [facility] 03-15-2020 zoster vaccine recombinant Florentin Arceo MD Work Phone: [facility] Work Phone: 12-17-2019 influenza, high-dose , quadrivalent vaccine (FLUZONE HIGH DOSE QUADRIVALENT) Florentin Arceo MD Work Phone: [facility] Work Phone: 12-04-2019 zoster vaccine recombinant Florentin Arceo MD Work Phone: [facility] Work Phone: 12-03-2019 zoster vaccine recombinant Florentin Arceo MD Work Phone: [facility] Work Phone: 03-06-2018 influenza, high dose seasonal, preservative-free Florentin Arceo MD Work Phone: [facility] Work Phone: 03-06-2017 influenza, high dose seasonal, preservative-free Florentin Arceo MD Work Phone: [facility] Work Phone: 01-28-2016 influenza, high dose seasonal, preservative-free Florentin Arceo MD Work Phone: [facility] 01-05-2016 pneumococcal conjuga te vaccine, 13 valent Florentin Arceo MD Work Phone: [facility] Work Phone: 02-03-2015 influenza, high dose seasonal, preservative-free Florentin Arceo MD Work Phone: [facility] 12-28-2013 influenza, high dose seasonal, preservative-free Florentin Arceo MD Work Phone: [facility] Work Phone: 07-13-2013 tetanus toxoid, redu ramona diphtheria toxoid, and acellular pertussis vaccine, adsorbed Florentin Arceo MD Work Phone: [facility] Work Phone: 02-21-2013 influenza virus vacc ine, unspecified formulation Florentin Arceo MD Work Phone: [facility] Work Phone: 01-09-2013 tetanus and diphther ia toxoids, adsorbed, preservative free, for adult use (2 Lf of tetanus toxoid and 2 Lf of diphtheria toxoid) Florentin Arceo MD Work Phone: [facility] Work Phone: 03-06-2012 influenza virus vacc ine, unspecified formulation Florentin Arceo MD Work Phone: [facility] Work Phone: 02-21-2011 pneumococcal polysaccharide vaccine, 23 valent Florentin Arceo MD Work Phone: [facility] Work Phone: 02-17-2011 influenza virus vacc ine, unspecified formulation Florentin Arceo MD Work Phone: [facility] Work Phone: 07-27-2010 zoster vaccine, live Florentin Arceo MD Work Phone: [facility] Work Phone: 01-09-2010 influenza virus vacc ine, unspecified formulation Florentin Arceo MD Work Phone: [facility] 05-10-2008 influenza virus vacc ine, unspecified formulation Florentin Arceo MD Work Phone: [facility] Work Phone: 05-09-2003 tetanus toxoid, adsorbed Luis Arceo MD Work Phone: [facility] Work Phone: Payers Date Payer Category Payer Self-pay [id number] 2023 Medicare [id number] 2023 Unknown [id number] 2010 Medicare [id number] Unknown [id number] 2.16.8 [id number] Unknown [id number] 2.16.8 [id number] Unknown [id number] 2.16.8 [id number] Unknown [id number] 2.16.8 [id number] Unknown [id number] 2.16.8 [id number] Unknown [id number] 2.16.8 [id number] Unknown [id number] 2.16.8 [id number] Unknown [id number] 2.16.8 [id number] Unknown [id number] 2.16.8 [id number] Unknown [id number] 2.16.8 [id number] Unknown [id number] 2.16.8 [id number] Unknown [id number] 2.16.8 [id number] Unknown [id number] 2.16.8 [id number] Unknown [id number] 2.16.8 [id number] Unknown [id number] 2.16.8 [id number] Unknown [id number] 2.16.8 [id number] Unknown [id number] 2.16.8 [id number] Unknown [id number] 2.16.8 [id number] Unknown [id number] 2.16.8 [id number] Unknown [id number] 2.16.8 [id number] Social History Date Type Detail Facility Start: 02-03-2015 End: 05-27-2024 Tobacco smoking status NHIS Never smoked tobacco [facility] Work Phone: Start: 02-03-2015 Tobacco use and exposure Smokeless tobacco non-user [facility] Work Phone: Start: 03-20-2021 End: 12-25-2021 Alcohol intake Current non-drinker of alcohol (finding) [facility] Start: 1945 Sex Assigned At Not on file [facility] Start: 05-03-2022 End: 04-15-2023 Tobacco smoking status CAIS Unknown if ever smoked [facility] Start: 1945 Sex Assigned At Male [facility] Start: 12-25-2021 End: 2022 History of Social function [facility] Start: 12-25-2021 End: 2022 Tobacco use panel [facility] Adult Depression Screening Assessment 0 [facility] Functional Status Date Assessment Result Facility 07-23-2014 Are you deaf, or do you have serious difficulty hearing No 07/23/2014 3:30 PM Elise Cardenas [facility] No [facility] 07-23-2014 Are you blind, or do you have serious difficulty seeing, even when wearing glasses No 07/23/2014 3:30 PM Elise Cardenas [facility] No [facility] 07-23-2014 Do you have serious difficulty walking or climbing stairs No 07/23/2014 3:30 PM El[facility]ardenas [facility] [facility] 07[facility]2014 Do you have difficul ty dressing or bathing No 07/23/2014 3:30 PM EDT Elise Mccormick Cma No [facility] 07-23-2014 Because of a physica l, mental, or emotional condition, do you have difficulty doing errands alone such as visiting a physician's office or shopping No 07/23/2014 3:30 PM EDT Elise Mccormick Cma [facility] Mental Status Date Assessment Result Facility 07-23-2014 Because of a physica l, mental, or emotional condition, do you have serious difficulty concentrating, remembering, or making decisions No 07/23/2014 3:30 PM EDT Elise Mccormick Cma No [facility] Progress note 07-21-2024 Note Date & Type Note Facility 07-21-2024 Note HNO ID: [id number] Author: ANNA DÍAZ LPN Service: ? Author Type: LICENSED NURSE Type: Progress Notes Filed: 07/21/2024 16:05 Note Text: POPULATION HEALTH NAVIGATION OUTREACH Action/FYI Spoke to Patient, he is seeing another PCP. PCP updated. Reason for Outreach Care Gap/HCC or Scheduling Wellness Visits Care Gaps due: Medicare Annual Wellness Visit Follow-up Appointment Patient Contacted: Spoke to patient/parent/or legal guardian Patient identified by name and : Yes Care Gap/HCC/Scheduling Wellness actions taken: Outside PCP Navigation Signature: Anna Díaz LPN July 21, 2024 4:03 PM [facility] History of Present illness Narrative 07-21-2024 Anna Díaz LPN - 07/21/2024 4:03 PM EDT Note Date & Type Note Facility 07-21-2024 History of Presen t illness Narrative POPULATION HEALTH NAVIGATION OUTREACH Action/FYI Spoke to Patient, he is seeing another PCP. PCP updated. Reason for Outreach Care Gap/HCC or Scheduling Wellness Visits Care Gaps due: Medicare Annual Wellness Visit Follow-up Appointment Patient Contacted: Spoke to patient/parent/or legal guardian Patient identified by name and : Yes Care Gap/HCC/Scheduling Wellness actions taken: Outside PCP Navigation Signature: Anna Díaz LPN July 21, 2024 4:03 PM documented in this encounter [facility] Evaluation note 05-20-2024 Note Date & Type Note Facility 05-20-2024 Evaluation note Diagnosis Onset Date Resolution Abnormal stress test acute Febr uary 2024 3:50pm Fatigue acute May 28, 2024 8:01am Hypertension chronic May 8:01am Acute URI resolved May 28, 2024 8:01am Fatigue acute July 02 9:00am New onset headache acute July 02, 2024 9:00am Hypertension chronic July 02, 2024 9:00am GERD (gastroesophageal reflux disease) acute September 16, 2024 8:02am Hyperlipemia acute September 16, 025 8:02am Hypertension chronic September 16, 025 8:02am [facility] Work Phone: Note 11-23-2021 Telephone Encounter - Anna Díaz LPN - 11/23/2021 3:34 PM EDTTelephone Encounter - Deborah Perez - 11/23/2021 3:27 PM EDT Note Date & Type Note Facility 11-23-2021 Miscellaneous Notes Formattin g of this note is different from the original. Patient has been identified by name and date of : Yes Patient phones for refill(s): Requested Prescriptions Pending Prescriptions Disp Refills atorvastatin (LIPITOR) 10 mg tablet 18 tablet 3 Sig: TAKE ONE-HALF TABLET BY MOUTH 3 TIMES A WEEK Date of last office visit in primary care: 04/07/2021 Annual: 12/25/2021 Last 2 Encounter Wt Readings: Date: Wt: 03/20/2021 78.5 kg (173 lb) 12/19/2020 77.6 kg (171 lb) Previous labs/tests for medication: Cholesterol: HDL Cholesterol (mg/dL) Date Value 11/28/2020 54 LDL Cholesterol (mg/dL) Date Value 11/28/2020 107 ALT (U/L) Date Value 11/28/2020 16 Non HDL Cholesterol (mg/dL) Date Value 11/28/2020 118 Please advise. Thank you. Anna Díaz LPN Patient has been identified by name and date of : Yes Requested Prescriptions Pending Prescriptions Disp Refills atorvastatin (LIPITOR) 10 mg tablet 18 tablet 3 Sig: TAKE ONE-HALF TABLET BY MOUTH 3 TIMES A WEEK RX INSTRUCTIONS: Patient aware RX will be sent to pharmacy. No need to notify patient. Deborah Cobos Pss documented in this encounter [facility] History of Past illness Narrative 07-27-2010 Note Date & Type Note Facility 07-27-2010 History of Past i llness Narrative Problem Noted Date Resolved Date Testicular hypofunction 07/27/2010 02/04/20 15 Hypogonadism 05/23/2009 02/03/2015 Overview: Started testosterone gel -- 02/2008 Unspecified disorder of male genital organs 07/200705/23/2009 Unspecified adjustment reaction 11/27/2006 02/03/2015 PAIN GROIN 07/23/2006 05/23/2009 Umbilical hernia without mention of obstruction or gangrene 04/09/2006 05/23/2009 Inguinal hernia with obstruc tion, without mention of gangrene, unilateral or unspecified, (not specified as recurrent) 04/09/2006 05/23/2009 Contact dermatitis and other eczema due to other specified agent 04/08/1997 02/03/2015 Overview: heat rash, Dr España Calculus of kidney 02/03/2015 Overview: 1970 Esophageal reflux 12/19/2020 Allergic rhinitis 02/03/2015 Hypogonadism in male 12/11/2017 documented as of this encounter (statuses as of 11/24/2021) [facility] Evaluation note Note Date & Type Note Facility Evaluation note Diagnosis Mixed hyperlipidemia documented in this encounter [facility] Evaluation note Note Date & Type Note Facility Evaluation note No assessment information availa ble [facility] Work Phone: Evaluation note Note Date & Type Note Facility Evaluation note Diagnosis Onset Date Fatigue acute GERD (gastroesophageal reflux disease) acute Hyperlipemia acute Hypogonadism acute [facility] Work Phone: Reason for referral (narrative) Note Date & Type Note Facility Reason for referral (narrative) No reason for referral information available [facility] Work Phone: Advance Directives No Advanced Directives Records FoundDocuments on File Type Date Recorded 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) May 20, 2024 3:50pm DID NOT SEE ORDER YET JUST CAME FROM OFF ICE May 20, 2024 4:35pm ABNORMAL STRESS TEST May 22, 2024 7:59am Review Results, Cough, Fatigue May 28, 2024 8:01am Elevated BP, Headaches, Lightheadedness July 02, 2024 9:00am 6 M FU September 16, 2024 8:02 am Reason for Visit Admit Date Abnormal stress test May 20, 2024 3:50pm Fatigue May 28, 2024 8:01am Hypertension May 28, 2024 8:01am Acute URI May 28, 2024 8:01am Fatigue July 02, 2024 9:0 0am New onset headache July 02, 2024 9:0 0am Hypertension July 02, 2024 9:0 0am GERD (gastroesophageal reflux disease) J une 2024 8:02am Hyperlipemia September 16, 2024 8:02 am Hypertension September 16, 2024 8:02 am Family History No Family History Records Found Relationship Condition Age at Onset Recorded Date/T malia father Malignant neoplasm Unknown mother Malignant neoplasm Unknown grandmother Malignant neoplasm Unknown Summary Purpose Additional Source Comments Source Comments (unrecognize d section and content) In the event this informatio n is protected by the Federal Confidentiality of Alcohol and Drug Abuse Patient Records regulations: The Federal rules restrict any use of the information to criminally investigate or prosecute any alcohol or drug abuse patient.[facility] the event this information is protected by the Federal Confidentiality of Alcohol and Drug Abuse Patient Records regulations: The Federal rules restrict any use of the information to criminally investigate or prosecute any alcohol or drug abuse patient.[facility] Reason for Visit (unrecogniz ed section and content) Reason Comments Refill Request Care Teams (unrecognized sec tion and content) Applications Systems Analyst Relationship Specialty Start Date End Date Florentin Arceo MD [address] [place] [address] PCP - General Internal Medicine 08/05/15 Team Status: Active Member Role Status Dates Dr. Nguyễn Gomez MD Family Provider Active Dr. Mirian Ayoub MD Primary Care Provider Active Team Status: Inactive Member Role Status Dates Dr. Mirian Ayoub MD Primary Care Pro vider, Attending Provider, Referring Provider Active Team Status: Inactive Member Role Status Dates Dr. Mirian Ayoub MD Primary Care Provider, Attendi ng Provider Active Team Status: Inactive Member Role Status Dates Dr. Mirian Ayoub MD Primary Care Provider Active Dr. Erlin Rangel MD Attending Provider Active Team Status: Active Member Role Status Dates Dr. Mirian Ayoub MD Primary Care Provider Active Team Status: Inactive Member Role Status Dates Dr. Mirian Ayoub MD Primary Care Provider Active Start: May 20, 2024 End: May 20, 2024 Dr. Mirian Ayoub MD Referring Provider Active Start: May 20, 2024 End: May 20, 2024 Dr. Robby Hastings MD Attending Provider Active S tart: May 20, 2024 End: May 20, 2024 Team Status: Inactive Member Role Status Dates Dr. Mirian Ayoub MD Primary Care Provider Active Start: May 20, 2024 End: May 20, 2024 Dr. Robby Hastings MD Attending Provider Active S tart: May 20, 2024 End: May 20, 2024 Dr. Robby Hastings MD Referring Provider Active S tart: May 20, 2024 End: May 20, 2024 Team Status: Inactive Member Role Status Dates Dr. Mirian Ayoub MD Primary Care Provider Active Start: May 22, 2024 End: May 22, 2024 Dr. Robby Hastings MD Attending Provider Active S tart: May 22, 2024 End: May 22, 2024 Dr. Robby Hastings MD Referring Provider Active S tart: May 22, 2024 End: May 22, 2024 Team Status: Inactive Member Role Status Dates Dr. Mirian Ayoub MD Primary Care Provider Active Start: May 28, 2024 End: May 28, 2024 Dr. Mirian Ayoub MD Attending Provider Active Start: May 28, 2024 End: May 28, 2024 Team Status: Inactive Member Role Status Dates Dr. Mirian Ayoub MD Primary Care Provider Active Start: July 02, 2024 End: July 02, 2024 Dr. Mirian Ayoub MD Attending Provider Active Start: July 02, 2024 End: July 02, 2024 Team Status: Inactive Member Role Status Dates Dr. Mirian Ayoub MD Primary Care Provider Active Start: September 16, 2024 End: September 16, 2024 Dr. Mirian Ayoub MD Attending Provider Active Start: September 16, 2024 End: September 16, 2024 Goals (unrecognized section and content) Goals may be documented in a n alternate sectionGoals may be documented in an alternate sectionGoals may be documented in an alternate sectionGoals may be documented in an alternate section (unrecognized sect ion and content) No Status Records FoundNo Status Records Found INFORMATION SOURCE (unrecogn ized section and content) DATE CREATED AUTHOR 07/23/2024 [facility] DATE CREATED AUTHOR AUTHOR'S LOLA ZUNIGA 09/17/2024 [facility] FOR RECORDS PERTAINING TO PATIENTS WHO ARE OR HAVE BEEN ENROLLED IN A CHEMICAL DEPENDENCY/SUBSTANCEABUSE PROGRAM, SOME INFORMATION MAY BE OMITTED. This clinical summary was aggregated from multiple sources. Caution should be exercised in using it in the provision of clinical care. This summary normalizes information from multiple sources, and as a consequence, information in this document may materially change the coding, format and clinical context of patient data. In addition, data may be omitted in some cases. CLINICAL DECISIONS SHOULD BE BASED ON THE PRIMARY CLINICAL RECORDS. [facility] [employer] provides no warranty or guarantee of the accuracy or completeness of information in this document.
[2024-10-16 09:53] LABS: Hematocrit 41.4 % (40-54); Hemoglobin 13.9 g/dL (13.0-16.5); Immature Granulocytes Count 0.020 X10^3/uL (0.0-0.0); Mean Corp Hgb Conc 33.6 g/dL (32-36); Mean Corpuscular Volume 94.7 fL (80-94); Mean Platelet Vol. 9.3 fl (6.2-12.0); NRBC Flagged by Analyzer 0 % (0-5); Platelet Count 213 K/mm3 (150-450); RBC Distribution Width CV 13.2 % (11.6-14.6); RBC Distribution Width SD 46.5 fl (35.1-43.9); Red Blood Count 4.37 M/mm3 (4.6-6.2); White Blood Count 6.1 K/mm3 (4.4-11.0)
[2024-10-16 11:48] LABS: AST(SGOT) 18 U/L (<=37); Alanine Aminotransfer ALT/SGPT 14 U/L (<=46); Albumin, Serum 4.2 g/dL (3.4-4.8); Alkaline Phosphatase 76 U/L (40-129); Anion Gap 10 (5-15); BUN 10 mg/dL (4-19); BUN/Creat Ratio 10.9 RATIO (10-20); Calcium,Total 9.5 mg/dL (7.6-11.0); Carbon Dioxide 26.4 mmol/L (21.0-32.0); Chloride 104 mmol/L (98-108); Cholesterol 237 mg/dL (<=200); Globulin 2.9 g/dL (2.2-4.2); Glucose 94 mg/dL (70-99); Low Density Lipoprotein Calc. 158 mg/dL; PSA,Total - Annual Screen 0.67 ng/mL (0.02-4.00); Potassium 4.0 mmol/L (3.3-5.1); Triglycerides 100 mg/dL; Very Low Density Lipoprotein 20 mg/dL (5-40); Vitamin B12 853 pg/mL (180-914); Vitamin D,25 Hydroxy 59.3 ng/mL (30-100); cholesterol:hdl ratio screen 3.98
== END | disposition home or self-care (01) ==
LOC: LAB 08:33
PROVIDERS: PCP Internal Medicine; Referring Provider Internal Medicine; Visit Provider Internal Medicine
DX: Z12.5 Encounter for screening for malignant neoplasm of prostate (principal); I10 Essential (primary) hypertension; E78.5 Hyperlipidemia, unspecified; K21.9 Gastro-esophageal reflux disease without esophagitis; E55.9 Vitamin D deficiency, unspecified; E53.8 Deficiency of other specified B group vitamins; Z13.220 Encounter for screening for lipoid disorders
CPT/HCPCS: 36415; 80053; 80061; 82306; 82607; 84153; 84443; 85025; G0103

== ENCOUNTER → 2025-03-05 | Outpatient (CLI) | payer MEDICARE, BC, SELFPAY ==
--- NOTE | 2025-03-05 13:54 | CT_ITS ---
PROCEDURE: SINUS/FACIAL BONE 03/05/2025 REASON FOR EXAM: CHRONIC SINUSITIS TECHNIQUE: Procedure Code: CTSI Modality: CT Procedure: SINUS/FACIAL BONE Coronal and Sagittal reconstruction series were provided. One or more dose reduction techniques were used (e.g., Automated exposure control, adjustment of the mA and/or kV according to patient size, use of iterative reconstruction technique). RADIATION DOSE SUMMARY: DLP: 680.96 mGycm COMPARISON: None available. FINDINGS: The frontal sinuses are well developed and predominantly clear. The frontal sinus outflow tracts are patent. The ethmoidal air cells are well developed. Scattered paranasal mucosal thickening in the ethmoid air cells. The lamina papyracea appear intact. The sphenoid sinuses are well developed. Mucosal thickening in the right sphenoid sinus. The sphenoethmoidal recesses are patent. The maxillary sinuses are symmetrical and well developed. Trace mucosal thickening in the left maxillary sinus at the alveolar recess. The ostiomeatal units are patent. The nasal cavity is unobstructed. Left nasal septal deviation and nasal spur. Maxillary edentulism. The anterior cranial fossa appears within normal limits of morphology. The bony orbits appear intact. The orbital contents appear within normal limits. The mastoid air cells and middle ear cavities are overall well aerated. Atherosclerotic calcification of the carotid siphons. Cervical spondylosis. CT/Sinus/Facial Bone IMPRESSION: Mild paranasal sinus mucosal thickening. Reading Location: [id number]
--- OUTSIDE RECORDS SUMMARY | 2025-03-05 13:54 | XMS RPT_ITS | CCD ---
Author Organization [facility] CliniSyid Care Team Providers Care Estimator Printing Plate Making Name Role Phone Adis WELLINGTON, Florentin Dotson Primary Care Provider [phone] Dr. Mirian Ayoub Primary Care Provider Dr. Mirian Ayoub Attending Provider Unavailable Primary Care Provider Unavaildora Ayoub MD, Dr. Vela Primary Care Provider [phone] Dr. Mirian Ayoub MD Referring Provider Venkata WELLINGTON, Dr. Bustamante Attending Provider [phone] Venkata WELLINGTON, Dr. Bustamante Referring Provider [phone] Mirian Ayoub MD Attending Provider Mega WELLINGTON, Dr. Vela Primary Care Provider [phone] Dr. Mirian Ayoub MD Attending Provider Mega WELLINGTON, Dr. Vela Referring Provider Mirian Ayoub Attending Unavailable Mirian Ayoub Referring Unavailable Mirian Ayoub Primary Care Unavailable Mirian Ayoub Attending Unavailable Mirian Ayoub Primary Care Unavailable Mirian Ayoub Attending Unavailable Mirian Ayoub Primary Care Unavailable Mirian Ayoub Primary Care Unavailable Mirian Ayoub Referring Unavailable Austin Solano Attending Unavailable Mirian Ayoub Attending Unavailable MegaMirian Primary Care Unavailable Mirian Ayoub Referring Unavailable Robby Hastings Attending Unavailable Mega, Mirian Primary Care Unavailable Mirian Ayoub Attending Unavailable Mega, Mirian Primary Care Unavailable Mirian Ayoub Attending Unavailable Mega, Mirian Primary Care Unavailable MegaMirian Primary Care Unavailable Mega, Mirian Attending Unavailable Mega, Mirian Attending Unavailable Mega, Mirian Primary Care Unavailable Venkata, Robby Attending Unavailable Venkata, Robby Referring Unavailable Mega, Mirian Primary Care Unavailable Mega, Mirian Consulting Unavailable Mega, Mirian Referring Unavailable Mega, Mirian Primary Care Unavailable Venkata, [place] Attending Unavailable Mega, Mirian Attending Unavailable Mega, Mirian Referring Unavailable Mega, Mirian Primary Care Unavailable Mega, Mirian Attending Unavailable Mega, Mirian Referring Unavailable Mega, Mirian Primary Care Unavailable Venkata, [place] Attending Unavailable Mega, Mirian Primary Care Unavailable Venkata, [place] Referring Unavailable Mega, Mirian Referring Unavailable Mega, Mirian Attending Unavailable Mega, Mirian Primary Care Unavailable Mega, Mirian Attending Unavailable Mega, Mirian Referring Unavailable Mega, Mirian Primary Care Unavailable Allergies Allergy Classification Reported Allergen(s) Allergy Type Date of Onset Reaction(s) Facility (2 sources) Amitriptyline Drug Allergy 9 [facility] Work Phone: [phone] (2 sources) Citalopram Drug Allergy 7 Diarrhea [facility] (2 sources) cyclobenzaprine Drug Allergy 9 [facility] Work Phone: (2 sources) DULoxetine Drug Allergy 9 [facility] Work Phone: (2 sources) gabapentin Drug Allergy 7 [facility] (2 sources) meloxicam Drug Allergy 9 [facility] Work Phone: (2 sources) metaxalone Drug Allergy 9 [facility] Work Phone: (2 sources) pregabalin Drug Allergy 7 Intolerance [facility] (2 sources) Propoxyphene N-Acetaminophen Propensity to adverse reactions 9 [facility] Work Phone: Medications Current Medications Medication Drug Class(es) Dates Sig (Normalized) Sig (Original) acetaminophen 500 mg oral tablet (7 sources) Start: 12-28-2022 take 1 tablet by mouth every six [...] / pepsin a 65 mg oral capsule (3 sources) Methylating Agent Start: 5 Pancreat-Bet Mex-Bat-Hbct-Pap (Super Enzyme) 667-918-05-125 mg capsule Active NMA PO DAILY May 20, 2024 1:00am calcium carb/magnesium ox,carb (LENO-MAG ORAL) [...] daily at bedtime. Chondroitin Sulfates / Glucosamine (8 sources) Start: 04-04-2022 osteo biflex Active PO 2 times daily April 04, 2022 1:00am Start: 01-23-2007 Glucosamine-Ch ondroit-Vit C-Mn (GLUCOSAMINE 1500 COMPLEX) 500-400 mg ORAL Cap 0 01/23/2007 Active Fish Oils (6 sources) Start: 04-04-2022 fish oil Activ e PO 1 time daily April 04, 2022 1:00am lactobacillus combination no.8 (ADULT PROBIOTIC) 3 billion cell cap (2 sources) Start: 08-08-2015 lactobacillus combination no.8 (ADULT PROBIOTIC) 3 billion cell cap Take 1 capsule by mouth once daily. 0 08/08/2015 Active Comment on above: Take 1 capsule by mo [facility] once daily. [place]-3 Fatty Acids (EPA) 500 mg ORAL Cap (2 sources) Start: 01-23-2007 [place]-3 Fatty Acids (EPA) 500 mg ORAL Cap Take by mouth. 0 01/23/2007 Active Comment on above: Take by mouth. polyethylene glycol 3350 78123 mg powder for oral solution (3 sources) Osmotic Laxative Start: 03-18-2024 Polyethylene Glycol 3350 (Miralax) 17 gram/dose powder Active 4 g PO daily March 18, 2024 1:00am terbinafine hydrochloride 10 mg/ml topical cream (1 source) Allylamine Antifungal Start: 10-28-2024 Terbinafine Hcl (Sagar k Itch (Terbinafine)) 1 % cream Active 1 NMA TOPICAL TWICE A DAY 30 0 October 28, 2024 12:00am vit K2 with D3 (6 sources) Start: 04-04-2022 vit K2 with D3 Active PO 1 time daily April 04, 2022 1:00am Vitamin B Comp And C No.3 (B Complex Plus Vitamin C) 52-05-75-5-300 mg capsule (3 sources) Start: 10-17-2023 Vitamin B Comp And C No.3 (B Complex Plus Vitamin C) 73-89-76-5-300 mg capsule Active 1 NMA PO DAILY October 17, 2023 12:00am give with food (meal/snack) Completed/Discontinued Medications Medication Drug Class(es) Dates Sig (Normalized) Sig (Original) aspirin 81 mg chewable tablet (6 sources) Platelet Aggregation Inhibitor, Nonsteroidal Anti-inflammatory Drug Start: 07-04-2013 End: 04-04-2022 take 1 tablet by mouth once daily Aspirin 81 MG tablet,chewable Discontinued 81 mg PO DAILY@0800 July 04, 2013 12:00am April 04, 2022 5:00pm azithromycin 250 mg oral tablet (6 sources) Macrolide Antimicrobial Start: 05-28-2024 End: 07-02-2024 Azithromycin 250 mg tablet Discontinued 0 PO .COMPLEX 6 0 May 28, 2024 1:00am July 02, 2024 9:02am For 250 mg dose pack: take 500 mg today (day 1), then 250 mg for 4 days (days 2-5) PO Start: 03-25-2024 End: 05-19-2024 Azithromycin (Zithromax) 250 mg tablet Discontinued 0 PO .COMPLEX 6 0 March 25, 2024 1:00am May 19, 2024 1:08pm For 250 mg dose pack: take 500 mg today (day 1), then 250 mg for 4 days (days 2-5) PO betamethasone 0.5 mg/ml / clotrimazole 10 mg/ml topical cream (3 sources) Azole Antifungal, Corticosteroid Start: 03-18-2024 End: 10-28-2024 Clotrimazole-Betamethasone 1-0.05 % cream Discontinued 1 NMA TOPICAL TWICE A DAY 15 March 18, 2024 1:00am October 28, 2024 11:10am cephalexin 500 mg oral capsule (6 sources) Cephalosporin Antibacterial Start: 07-04-2013 End: 04-04-2022 take 1 capsule by mouth twice daily Cephalexin (Keflex) 500 MG capsule Discontinued 500 mg PO TWICE A DAY 6 0 July 04, 2013 12:00am April 04, 2022 [...] mg / lisinopril 10 mg oral tablet (3 sources) Thiazide Diuretic, Angiotensin Converting Enzyme Inhibitor Start: 05-14-2024 End: 05-28-2024 Lisinopril-Hydrochlorothiaz vincent 10-12.5 mg tablet Discontinued 1 {tbl} PO daily 30 2 May 14, 2024 1:00am May 28, 2024 10:01am ibuprofen 200 mg oral tablet (1 source) Nonsteroidal Anti-inflammator y Drug take 1 tablet by mouth every [...] right groin. lisinopril 10 mg oral tablet (3 sources) Angiotensin Converting Enzyme Inhibitor Start: 05-28-2024 End: 09-16-2024 take 1 tablet by mouth once daily Lisinopril 10 mg tablet Discontinued 10 mg PO daily 90 1 May 28, 2024 1:00am September 16, 2024 8:05am multivitamin (DAILY MULTIVITAMIN) ORAL Tab (1 source) Start: 01-23-2007 multivitamin (DAILY MULTIVITAMIN) ORAL Tab pravastatin sodium 20 mg oral tablet (6 sources) HMG-CoA Reductase Inhibitor Start: 07-04-2013 End: 04-04-2022 Pravastatin Sodium 20 MG tablet Discontinued 20 mg AT BEDTIME July 04, 2013 12:00am April 04, 2022 5:01pm Start: 07-04-2013 End: 04-04-2022 Pravastatin Sodium Discontin ued 20 MG AT BEDTIME July 04, 2013 12:00am April 04, 2022 5:01pm probiotic (10 sources) Start: 04-15-2023 End: 10-17-2023 probiotic Discontinued PO [facility] 2023 1:00am October 17, 2023 8:04am Start: [...] as needed. raNITIdine 150 mg oral tablet (6 sources) Histamine-2 Receptor Antagonist Start: End: take 1 tablet by mouth twice daily Ranitidine (Zantac) 150 MG tablet Discontinued 150 mg PO TWICE A DAY July 04, 2013 12:00am April 04, 2022 5:01pm Testosterone (6 sources) Androgen Start: End: Testosterone (Androgel) 2.5 GM gel in packet Discontinued 2.5 g TD January 09, 2013 12:00am April 04, 2022 5:01pm Start: 01-09-2013 End: 04-04-2022 Testosterone (Androgel) 2.5 GM gel in packet Discontinued 2.5 GM TD January 09, 2013 12:00am April 04, 2022 5:01pm traZODone hydrochloride 100 mg oral tablet (20 sources) Serotonin Reuptake Inhibitor Start: 10-15-2022 End: 05-28-2024 Trazodone 100 mg tablet Discontinued 50 mg PO DAILY 45 3 October 24, 2023 11:16am May 28, 2024 10:00am Start: 10-15-2022 End: 04-15-2023 take 50 mg by mouth once daily Trazodone Active 50 MG PO DAILY April 15, 2023 12:06pm Start: 04-04-2022 End: 10-15-2022 take 1 tablet by mouth once daily Trazodone 50 mg tablet Discontinued 50 mg PO DAILY April 04, 2022 1:00am October 15, 2022 9:00am Start: 12-25-2021 take 1 tablet by gwen th once [...] tablet by gwen th daily at bedtime. 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] 05-19-2024 Chronic Calculus of urinary tract (4 sources) Kidney stone; Translations: [Calculus of kidney] Resolved: 5 04-03-2021 Episodic Coronary atherosclerosis and other heart disease (1 source) Angina pectoris, unspecified; Translations: [Angina pectoris, unspecified] Onset: 5 Chronic Disorders of lipid metabolism (15 sources) Mixed hyperlipidemia; Translations: [Mixed hyperlipidemia] Onset: 8 Chronic Esophageal disorders (12 sources) Gastroesophageal reflux disease; Translations: [Gastro-esophageal reflux disease without esophagitis] Onset: 5 Resolved: 1 04-18-2022 Chronic Essential hypertension (12 sources) Hypertensive disorder; Translations: [Essential (primary) hypertension] Onset: 5 05-12-2024 Chronic Headache; including migraine (6 sources) Headache; Translations: [New onset headache] 07-02-2024 Episodic Headache; including migraine (2 sources) Headache; including migraine; Translations: [Headache, unspecified] Onset: 5 Hyperplasia of prostate (2 sources) Benign prostatic hyperplasia; Translations: [Benign prostatic hyperplasia without lower urinary tract symptoms] Onset: 7 06-06-2017 Chronic Immunizations and screening for infectious disease (4 sources) Needs influenza immunization; Translations: [Encounter for immunization] 02-25-2023 Episodic Nutritional deficiencies (1 source) Vitamin D deficiency, unspecified; Translations: [Vitamin D deficiency, unspecified] Onset: 5 Chronic Other ear and sense organ disorders (6 sources) Pain of ear structure; Translations: [Otalgia, bilateral] 05-02-2022 Episodic Other ear and sense organ disorders (6 sources) Impacted cerumen; Translations: [Impacted cerumen, bilateral] 05-02-2022 Episodic Other endocrine disorders (3 sources) Male hypogonadism; Translations: [Testicular hypofunction] Onset: 8 Resolved: 8 12-11-2018 Chronic Other endocrine disorders (3 sources) Hypogonadism 05-19-2024 Chronic Other gastrointestinal disorders (3 sources) Finding of frequency of defecation; Translations: [Change in bowel habit] 05-19-2024 Episodic Other gastrointestinal disorders (3 sources) Abdominal bloating; Translations: [Abdominal distension (gaseous)] 05-19-2024 Episodic Other male genital disorders (2 sources) Male erectile dysfunction, unspecified; Translations: [Impotence of organic origin] Onset: 7 12-04-2016 Chronic Other screening for suspected conditions (not mental disorders or infectious disease) (8 sources) Cardiovascular stress test abnormal; Translations: [Abnormal result of other cardiovascular function study] Onset: 5 05-19-2024 Episodic Other skin disorders (4 sources) Eruption; Translations: [Rash and other nonspecific skin eruption] 05-19-2024 Episodic Past or Other Problems Problem Classification Problem Date Documented Da te Episodic/Chronic Abdominal hernia (2 sources) Umbilical hernia; Translations: [Umbilical hernia without obstruction or gangrene] Onset: 04-09-2006 Resolved: 05-23-2009 05-23-2009 Episodic Abdominal pain (3 sources) Right inguinal pain; Translations: [Right lower quadrant pain] Onset: 07-23-2006 Resolved: 05-23-2009 12-19-2020 Episodic Adjustment disorders (1 source) Adjustment disorder; Translations: [Adjustment disorder, unspecified] Onset: 11-27-2006 Resolved: 02-03-2015 02-03-2015 Chronic Malaise and fatigue (12 sources) Fatigue; Translations: [Other fatigue] Onset: 06-02-2024 10-02-2022 Episodic Other endocrine disorders (1 source) Testicular [...] 02-03-2015 02-03-2015 Chronic Other upper respiratory infections (5 sources) Acute upper respiratory infection; Translations: [Acute [...] Test Name Value Interpretation Reference Range Facility /[facility]oe 10-28-2024 /[facility] [address] [place], [place] [address] OFFICE VISIT Date of Service: 10/28/24 MR#: [id number] Acct: [id number] Name: KATI MEDLEY Rep #: [id number] : 1945 Provider: Dr. Mirian roy MD Age/Sex: 79/M Location: [facility] Status: Signed Intake Vital Signs 09/16/24 08:08 10/28/24 10:43 10/28/24 11:01 Height 5 ft 10 in 5 ft 10 in 5 ft 10 in Weight: 169 lb 2 oz 170 lb BMI 24.3 24.3 BP 160/82 H 157/76 H Blood Pressure Location Rt brachial Lt brachial Position Sitting Sitting Respiration 16 16 Pulse 47 L 49 L Pulse Source Monitor Monitor Temp 98.2 F 98.4 F Temp Source Temporal Temporal Pulse Oximetry (%) 96 96 Oxygen Delivery Method room air room air Intake Visit Reasons: Rash Chief Complaint: Rash [employer] Required: No Accompanied by: Self Is patient in pain?: Yes (Genitals) Pain scale (1-10): 8 Allergies No Known Allergies Allergy (Verified 10/28/24 10:44) Medications ???Medication ???Instructions ???Recorded ???Confirmed ???Type acetaminophen 500 mg tablet 500 mg PO Q6H PRN fever or pain 10/28/24 History (Tylenol Extra Strength) fish oil PO 1XD 04/04/22 10/28/24 History osteo biflex PO 2XD 04/04/22 10/28/24 History vit K2 with D3 PO 1XD 04/04/22 10/28/24 History vitamin B comp and C no.3 15 mg-10 1 cap PO DAILY 10/17/23 10/28/24 History mg-50 mg-5 mg-300 mg capsule (B Complex Plus Vitamin C) polyethylene glycol 3350 17 4 g PO QDAY 03/18/24 10/28/24 Hist ory gram/dose oral powder (Miralax) Pancreat-Bet KTk-eax-tbem-pap 250 cap PO DAILY 05/20/24 10/28/24 Hi story mg-162 mg-65 mg-125 mg capsule (Super Enzyme) trazodone 100 mg tablet 50 mg (1/2 x 100 mg) PO DAILY #45 05/28/24 10/28/24 Rx tabs terbinafine HCl 1 % topical cream 1 applic topical BID #30 grams 10/28/24 Rx (Jock Itch (terbinafine)) Have you fallen in the past year?: No [facility] Medical History (Updated 10/28/24 @ 11:[address] Mirian Ayoub MD) Yeast infection of the skin New onset headache Abnormal stress test Hypogonadism [...] physical activity do you participate in: walking nadine/faith: Zoroastrian seatbelt use: always do you feel safe at home: Yes HPI HPI Chief Complaint: Rash Details: KATI MEDLEY, is a 79 M who presents to the office today for an acute care follow-up visit. Rash that is new, red, itching, penis and scrotal area. He did have a cream that he had been using that we initially used a while back, on a rash on the inner thigh that was felt to be inflammation but possible fungal, Clotrimazole???betame thasone. Describes while it may feel a little better after application, he has ongoing itching, redness. No other acute symptoms. Review of systems per chart. Physical exam. Vital signs on chart. My exam is limited and focused to the groin area. No obvious hernias are identified. No scrotal or testicular masses identified. There is redness, inflammation of the scrotum bilateral, and some perhaps along the shaft of the penis. The head does not appear involved. ROS Const Constitutional: No body ache, chills, excessive sweating, fatigue, fever(s), frequent falls, headache(s), snoring, weakness or change in appetite Eyes Eyes: No blurry vision, change in vision, eye pain or Light sensitivity ENT ENT: No abnormal hearing, ear or mastoid pain, tinnitus, nasal congestion, headache(s), neck pain or sore throat Resp Respiratory: No cough, shortness of breath, snoring or wheezing Cardio Cardiology: No chest pain at rest, chest pain with exertion, excessive sweating, dyspnea on exertion, lightheadedness, orthopnea or palpitations Gastro GI: No abdominal pain, change in bowel habits, constipation, cramping, diarrhea, nausea/dyspepsia or vomiting Genitourinary Male: Positive (more content not included)... Normal [facility] Absolute lymphocyte countOrd ered By: Mirian Ayoub on 10-16-2024 Lymphocytes Auto (Unsp spec) [#/Vol] 2.18 10*3/uL 0.83-4.51 [facility] Absolute neutrophil countOrd ered By: Mirian Ayoub on 10-16-2024 Neutrophils (Bld) [#/Vol] 3.1 10*3/uL 2.0-7.7 [facility] Anion gap in Serum or Plasma Ordered By: Mirian Ayoub on 10-16-2024 Anion gap [Moles/Vol] 10 mmol/L 5-15 [facility] Automated lymphocyte count a s percentage of total leukocytesOrdered By: Mirian Ayoub on 10-16-2024 Lymphocytes/100 WBC Auto (Unsp spec) 35.8 % 19-41 [facility] BUN/creatinine ratioOrdered By: Mirian Ayoub on 10-16-2024 Urea nitrogen/Creatinine [Mass ratio] 10.9 mg/mg 10-20 [facility] Basophil percentageOrdered B y: Mirian Ayoub on 10-16-2024 Basophils/100 WBC (Bld) 0.7 % 0-1 [facility] Bilirubin, totalOrdered By: Mirian Ayoub on 10-16-2024 Bilirubin [Mass/Vol] 0.44 mg/dL 0.00-1.30 [facility] CBC W/Diff, Automatedon 10-06-2024 Absolute Lymph 2.18 X10 3/uL Normal 0.83-4.51 [facility] Comment on above: Performed By: #### L 500.4050, L500.4100 #### [facility] [address] [place], [address] Absolute Neut 3.1 X10 3/uL Normal 2.0-7.7 [facility] Comment on above: Performed By: #### L 500.4050, [id number] #### [facility] [address] [place], [address] Basophils/100 WBC (Bld) 0.7 % Normal 0-1 [facility] Comment on above: Performed By: #### L [id number], [id number] #### [facility] [address] [place], [address] Eosinophils/100 WBC (Bld) 2.3 % Normal 0-5 [facility] Comment on above: Performed By: #### L [id number], [id number] #### [facility] [address] [place], [address] Erythrocyte distribution width (RBC) [Ratio] 13.2 % Normal 11.6-14.6 [facility] Comment on above: Performed By: #### L 500.4050, [id number] #### [facility] [address] [place], [address] Hematocrit (Bld) [Volume fraction] 41.4 % Normal 40-54 [facility] Comment on above: Performed By: #### L 500.4050, [id number] #### [facility] [address] [place], [address] Hemoglobin (Bld) [Mass/Vol] 13.9 g/dL Normal 13.0-16.5 [facility] Comment on above: Performed By: #### L 500.4050, [id number] #### [facility] [address] [place], [address] IG% 0.300 Normal 0.0-0.9 [facility] Comment on above: Result Comment: IG% - Immature Granulocytes (promyelocytes, myelocytes and metamyelocytes) > 1% indicates that a LEFT SHIFT is Present. Performed By: #### L 500.4050, L500.4100 #### [facility] [address] [place], [address] Lymphocytes/100 WBC (Bld) 35.8 % Normal 19-41 [facility] Comment on above: Performed By: #### L 500.4050, [id number] #### [facility] [address] [place], [address] MCH (RBC) [Entitic mass] 31.8 pg Normal 27.0-32.0 [facility] Comment on above: Performed By: #### L [id number], [id number] #### [facility] [address] [place], [address] MCHC (RBC) [Mass/Vol] 33.6 g/dL Normal 32-36 [facility] Comment on above: Performed By: #### L 500.4050, [id number] #### [facility] [address] [place], [address] MCV (RBC) [Entitic vol] 94.7 fL High 80-94 [facility] Comment on above: Performed By: #### L [id number], [id number] #### [facility] [address] [place], [address] Monocytes/100 WBC (Bld) 10.2 % High 0-10 [facility] Comment on above: Performed By: #### L 500.4050, [id number] #### [facility] [address] [place], [address] Neutrophils/100 WBC (Bld) 50.7 % Normal 47-70 [facility] Comment on above: Performed By: #### L 500.4050, [id number] #### [facility] [address] [place], [address] Nucleated RBC (Bld) [#/Vol] 0 10*3/uL Normal 0-5 [facility] Comment on above: Performed By: #### L 500.4050, [id number] #### [facility] [address] [place], [address] Platelet mean volume (Bld) [Entitic vol] 9.3 fL Normal 6.2-12.0 [facility] Comment on above: Performed By: #### L 500.4050, [id number] #### [facility] [address] [place], [address] Platelets (Bld) [#/Vol] 213 10*3/uL Normal 150-450 [facility] Comment on above: Performed By: #### L 500.4050, [id number] #### [facility] [address] [place], [address] RBC (Bld) [#/Vol] 4.37 10*6/uL Low 4.6-6.2 [facility] Comment on above: Performed By: #### L 500.4050, [id number] #### [facility] [address] [place], [address] RDW SD 46.5 fl High 35.1-43.9 [facility] Comment on above: Performed By: #### L [id number], [id number] #### [facility] [address] [place], [address] WBC (Bld) [#/Vol] 6.1 10*3/uL Normal 4.4-11.0 [facility] Comment on above: Performed By: #### L 500.4050, [id number] #### [facility] [address] [place], [address] Calculated very low density lipoprotein (VLDL) cholesterol measurementOrdered By: Mirian Ayoub on 10-16-2024 Calculated very low density lipoprotein (VLDL) cholesterol measurement 20 mg/dL 5-40 [facility] Carbon dioxide, total [Moles /volume] in Central venous bloodOrdered By: Mirian Ayoub on 10-16-2024 CO2 [Moles/Vol] 26.4 mmol/L 21.0-32.0 [facility] Chloride assayOrdered By: Kadi Ayoub on 10-16-2024 Chloride [Moles/Vol] 104 mmol/L 98-108 [facility] Comprehensive Metabolic Prof ilon 10-16-2024 Albumin [Mass/Vol] 4.2 g/dL Normal 3.4-4.8 [facility] Comment on above: Performed By: #### L [id number], [id number] #### [facility] [address] [place], [address] Albumin/Globulin [Mass ratio] 1.4 {ratio} Normal 0.9-2.4 [facility] Comment on above: Performed By: #### L [id number], [id number] #### [facility] [address] [place], [address] ALK PHOS 76 U/L Normal 40-129 [facility] Comment on above: Performed By: #### L 500.4050, L500.4100 #### [facility] [address] [place], [address] ALT [Catalytic activity/Vol] 14 U/L Normal <=46 [facility] Comment on above: Performed By: #### L 500.4050, L500.4100 #### [facility] [address] [place], [address] AST [Catalytic activity/Vol] 18 U/L Normal <=37 [facility] Comment on above: Performed By: #### L 500.4050, L500.4100 #### [facility] [address] [place], [address] Bilirubin [Mass/Vol] 0.44 mg/dL Normal 0.00-1.30 [facility] Comment on above: Performed By: #### L 500.4050, L500.4100 #### [facility] [address] [place], [address] BUN/CRE 10.9 RATIO Normal 10-20 [facility] Comment on above: Performed By: #### L 500.4050, L500.4100 #### [facility] [address] [place], [address] Calcium [Mass/Vol] 9.5 mg/dL Normal 7.6-11.0 [facility] Comment on above: Performed By: #### L 500.4050, L500.4100 #### [facility] [address] [place], [address] Chloride [Moles/Vol] 104 mmol/L Normal 98-108 [facility] Comment on above: Performed By: #### L 500.4050, L500.4100 #### [facility] [address] [place], [address] CO2 [Moles/Vol] 26.4 mmol/L Normal 21.0-32.0 [facility] Comment on above: Performed By: #### L 500.4050, L500.4100 #### [facility] [address] [place], [address] Creatinine [Mass/Vol] 0.95 mg/dL Normal 0.70-1.20 [facility] Comment on above: Performed By: #### L 500.4050, L500.4100 #### [facility] [address] [place], [address] GAP 10 Normal 5-15 [facility] Comment on above: Performed By: #### L 500.4050, L500.4100 #### [facility] [address] [place], [address] GFR/1.73 sq M.predicted among non-blacks MDRD (S/P/Bld) [Vol rate/Area] 82 mL/min/{1.73_m2} Normal >60 [facility] Comment on above: Result Comment: mL/m in/1.73m2 CKD-EPI Creatinine Equation (2020) Performed By: #### L 500.4050, L500.4100 #### [facility] [address] [place], [address] Globulin (S) [Mass/Vol] 2.9 g/dL Normal 2.2-4.2 [facility] Comment on above: Performed By: #### L 500.4050, L500.4100 #### [facility] [address] [place], [address] Glucose [Mass/Vol] 94 mg/dL Normal 70-99 [facility] Comment on above: Performed By: #### L 500.4050, L500.4100 #### [facility] [address] [place], [address] Potassium [Moles/Vol] 4.0 mmol/L Normal 3.3-5.1 [facility] Comment on above: Performed By: #### L 500.4050, L500.4100 #### [facility] [address] [place], [address] Sodium [Moles/Vol] 140 mmol/L Normal 133-145 [facility] Comment on above: Performed By: #### L 500.4050, L500.4100 #### [facility] [address] [place], [address] T PROT 7.1 g/dL Normal 5.9-8.4 [facility] Comment on above: Performed By: #### L 500.4050, L500.4100 #### [facility] [address] [place], [address] Urea nitrogen [Mass/Vol] 10 mg/dL Normal 4-19 [facility] Comment on above: Performed By: #### L 500.4050, L500.4100 #### [facility] [address] [place], [address] Eosinophil percentageOrdered By: Mirian Ayoub on 10-16-2024 Eosinophils/100 WBC (Bld) 2.3 % 0-5 [facility] Erythrocyte distribution wid th ratioOrdered By: Mirian Ayoub on 10-16-2024 Erythrocyte distribution width (RBC) [Ratio] 13.2 % 11.6-14.6 [facility] Erythrocyte distribution wid th standard deviationOrdered By: Mirian Ayoub on 10-16-2024 Erythrocyte distribution width (RBC) [Ratio] 46.5 fl High 35.1-43.9 [facility] Glomerular filtration rate ( GFR) estimation/1.73 sq m using serum, plasma, or whole bOrdered By: Mirian Ayoub on 10-16-2024 GFR/1.73 sq M.predicted among non-blacks MDRD (S/P/Bld) [Vol rate/Area] 82 mL/min/{1.73_m2} >60 [facility] Comment on above: mL/min/1.73m2 CKD-EP I Creatinine Equation (2021) Hematocrit Auto (Bld) [Volum e fraction]Ordered By: Mirian Ayoub on 10-16-2024 Hematocrit (Bld) [Volume fraction] 41.4 % 40-54 [facility] Hemoglobin measurementOrdere d By: Mirian Ayoub on 10-16-2024 Hemoglobin (Bld) [Mass/Vol] 13.9 g/dL 13.0-16.5 [facility] Immature granulocytes/100 WB C Auto (Bld)Ordered By: Mirian Ayoub on 10-16-2024 Immature granulocytes/100 WBC (Bld) 0.300 % 0.0-0.9 [facility] Comment on above: IG% - Immature Granu locytes (promyelocytes, myelocytes and metamyelocytes) > 1% indicates that a LEFT SHIFT is Present. LDL calc ser/plasOrdered By: Mirian Ayoub on 10-16-2024 Cholesterol in LDL [Mass/Vol] 158 mg/dL [facility] Comment on above: Buwknyrmho=946-014 m g/dL & Higher Hhzd=964 mg/dL or greater Laboratory - Chemistry and C hemistry - challengeOrdered By: Mirian Ayoub on 10-16-2024 AST [Catalytic activity/Vol] 18 U/L <38 [facility] Lipid Profileon 10-16-2024 CHOL:HDL 3.98 Normal [facility] Comment on above: Performed By: #### L 500.4050, L500.4100 #### [facility] [address] [place], [place], [address] Cholesterol [Mass/Vol] 237 mg/dL High <=200 [facility] Comment on above: Result Comment: Chol esterol level, Desirable <200 mg/dL Borderline high cholesterol 200-239 mg/dL High cholesterol >=240 mg/dL Recommendations of the NCEP Adult Treatment Panel for the following risk-cutoff thresholds for the [place] population. Performed By: #### L 500.4050, L500.4100 #### [facility] [address] [place], [address] Cholesterol in HDL [Mass/Vol] 60 mg/dL Normal [facility] Comment on above: Result Comment: Regla onal Cholesterol Education Program (NCEP) guidelines: <40 mg/dL: Low HDL-cholesterol (major risk factor for CHD) >= 60 mg/dL: High HDL-cholesterol (negative risk factor for CHD) HDL-cholesterol is affected by a number of factors, e.g. smoking, exercise, hormones, sex and age. Performed By: #### L 500.4050, L500.4100 #### [facility] [address] [place], [address] Cholesterol in LDL [Mass/Vol] 158 mg/dL Normal [facility] Comment on above: Result Comment: Bord zscltq=447-391 mg/dL Higher Zodi=648 mg/dL or greater Performed By: #### L 500.4050, L500.4100 #### [facility] [address] [place], [address] Cholesterol in VLDL [Mass/Vol] 20 mg/dL Normal 5-40 [facility] Comment on above: Performed By: #### L 500.4050, L500.4100 #### [facility] [address] [place], [address] Triglyceride [Mass/Vol] 100 mg/dL Normal [facility] Comment on above: Result Comment: The drugs N-Acetylcysteine and Metamizole may falsely depress this assay. Normal range: <150 mg/dL Borderline High: 150-199 mg/dL High: 200-499 mg/dL Very High: >500 mg/dL Performed By: #### L 500.4050, L500.4100 #### [facility] [address] [place], [address] MCV (mean corpuscular volume ) determinationOrdered By: Mirian Ayoub on 10-16-2024 MCV (RBC) [Entitic vol] 94.7 fL High 80-94 [facility] Mean corpuscular hemoglobin (MCH) determinationOrdered By: Mirian Ayoub on 10-16-2024 MCH (RBC) [Entitic mass] 31.8 pg 27.0-32.0 [facility] Mean corpuscular hemoglobin concentration (MCHC) determinationOrdered By: Mirian Ayoub on 10-16-2024 MCHC (RBC) [Mass/Vol] 33.6 g/dL 32-36 [facility] Mean platelet volume determi nationOrdered By: Mirian Ayoub on 10-16-2024 Platelet mean volume (Bld) [Entitic vol] 9.3 fL 6.2-12.0 [facility] Monocyte percentageOrdered B y: Mirian Ayoub on 10-16-2024 Monocytes/100 WBC (Bld) 10.2 % High 0-10 [facility] Neutrophil percentageOrdered By: Mirian Ayoub on 10-16-2024 Neutrophils/100 WBC (Bld) 50.7 % 47-70 [facility] Nucleated red blood cell per centageOrdered By: Mirian Ayoub on 10-16-2024 Nucleated RBC/100 WBC (Bld) [Ratio] 0 % 0-5 [facility] PSA,Total - Annual Screenon 10-16-2024 PSA,TOT SCREEN 0.67 ng/mL Normal 0.02-4.00 [facility] Comment on above: Result Comment: This test was performed using the [employer] tPSA method. Measured values of a patient??sample can vary depending on the testing procedure used. PSA values determined on patient samples by different testing procedures cannot be used interchangeably. If there is a change in PSA assays while monitoring therapy, sequential testing should be performed to confirm baseline values. Performed By: #### L 500.4050, L500.4100 #### [facility] [address] [place], [address] Platelet countOrdered By: Kadi Ayoub on 10-16-2024 Platelets (Bld) [#/Vol] 213 10*3/uL 150-450 [facility] Potassium measurement (mass/ volume)Ordered By: Mirian Ayoub on 10-16-2024 Potassium (Unsp spec) [Mass/Vol] 4.0 mmol/L 3.3-5.1 [facility] RBC Auto (Bld) [#/Vol]Ordere d By: Mirian Ayoub on 10-16-2024 RBC (Bld) [#/Vol] 4.37 10*6/uL Low 4.6-6.2 [facility] Screening total cholesterol/ high density lipoprotein (HDL) cholesterol ratioOrdered By: Mirian Ayoub on 10-16-2024 Cholesterol.total/Choles terol in HDL [Mass ratio] 3.98 {ratio} [facility] Serum creatinine measurement (mass/volume)Ordered By: Mirian Ayoub on 10-16-2024 Creatinine [Mass/Vol] 0.95 mg/dL 0.70-1.20 [facility] Serum globulin measurementOr dered By: Mirian Ayoub on 10-16-2024 Globulin (S) [Mass/Vol] 2.9 g/dL 2.2-4.2 [facility] Serum glucose measurement (m ass/volume)Ordered By: Mirian Ayoub on 10-16-2024 Glucose [Mass/Vol] 94 mg/dL 70-99 [facility] Serum or plasma alanine elizalde otransferase (ALT) measurementOrdered By: Mirian Ayoub on 10-16-2024 ALT [Catalytic activity/Vol] 14 U/L <47 [facility] Serum or plasma albumin alessandra urement (mass/volume)Ordered By: Mirian Ayoub on 10-16-2024 Albumin [Mass/Vol] 4.2 g/dL 3.4-4.8 [facility] Serum or plasma albumin/glob ulin mass ratioOrdered By: Mirian Ayoub on 10-16-2024 Albumin/Globulin [Mass ratio] 1.4 {ratio} 0.9-2.4 [facility] Serum or plasma alkaline batool sphatase measurementOrdered By: Mirian Ayoub on 10-16-2024 ALP [Catalytic activity/Vol] 76 U/L 40-129 [facility] Serum or plasma calcium alessandra urement (mass/volume)Ordered By: Mirian Ayoub on 10-16-2024 Calcium [Mass/Vol] 9.5 mg/dL 7.6-11.0 [facility] Serum or plasma cholesterol in HDL measurement (mass/volume)Ordered By: Mirian Ayoub on 10-16-2024 Cholesterol in HDL [Mass/Vol] 60 mg/dL >40 [facility] Comment on above: National Cholesterol Education Program (NCEP) guidelines:<40 mg/dL: Low HDL-cholesterol (major risk factor for CHD)>= 60 mg/dL: High HDL-cholesterol (negative risk factor for CHD)HDL-cholesterol is affected by a number of factors, e.g. smoking, exercise, hormones, sex and age. Serum or plasma cholesterol measurement (mass/volume)Ordered By: Mirian Ayoub on 10-16-2024 Cholesterol [Mass/Vol] 237 mg/dL High <201 [facility] Comment on above: Cholesterol level, D esirable <200 mg/dLBorderline high cholesterol 200-239 mg/dLHigh cholesterol >=240 mg/dLRecommendations of the NCEP Adult Treatment Panel for the following risk-cutoff thresholds for the [place] population. Serum or plasma urea nitroge n measurement (mass/volume)Ordered By: Mirian Ayoub on 10-16-2024 Urea nitrogen [Mass/Vol] 10 mg/dL 4-19 [facility] Sodium levelOrdered By: Debby Ayoub on 10-16-2024 Sodium [Moles/Vol] 140 mmol/L 133-145 [facility] TSH DL <= 0.005 mIU/L QnOrde red By: Mirian Ayoub on 10-16-2024 TSH Qn 0.642 uIU/mL 0.300-4.200 [facility] Thyroid Stim Hormone (TSH)on 10-16-2024 TSH 0.642 uIU/mL Normal 0.300-4.200 [facility] Comment on above: Performed By: #### L 500.4050, L500.4100 #### [facility] [address] [place], [address] Total proteinOrdered By: Lyndsay Ayoub on 10-16-2024 Protein [Mass/Vol] 7.1 g/dL 5.9-8.4 [facility] Triglycerides measurementOrd ered By: Mirian Ayoub on 10-16-2024 Triglyceride [Mass/Vol] 100 mg/dL <199 [facility] Comment on above: The drugs N-Acetylcy steine and Metamizole may falsely depress this assay. Normal range: <150 mg/dLBorderline High: 150-199 mg/dLHigh: 200-499 mg/dLVery High: >500 mg/dL Vitamin B12on 10-16-2024 Cobalamin (Vitamin B12) [Mass/Vol] 853 pg/mL Normal 180-914 [facility] Comment on above: Performed By: #### L 500.4050, L500.4100 #### [facility] [address] [facility] [place], [address] Vitamin B12 ser/plasOrdered By: Mirian Ayoub on 10-16-2024 Cobalamin (Vitamin B12) [Mass/Vol] 853 pg/mL 180-914 [facility] Vitamin D,25 Hydroxyon 10-16 Vitamin D 25-OH 59.3 ng/mL Normal 30-100 [facility] Comment on above: Result Comment: Marcelle min D Status Deficiency: <20 ng/mL (50nmol/L) Insufficiency: 20-30 ng/mL (50-75 nmol/L) Sufficiency: 30-100 ng/mL (75-250 nmol/L) Toxicity: >100 ng/mL (>250 nmol/L) Performed By: #### L 500.4050, L500.4100 #### [facility] [address] [facility] [place], [address] White blood cell (WBC) count Ordered By: Mirian Ayoub on 10-16-2024 WBC (Bld) [#/Vol] 6.1 10*3/uL 4.4-11.0 [facility] MR/BMS.IMBon 09-16-2024 MR/BMS.IMB [facility] [address] [place], [place] [address] OFFICE VISIT Date of Service: 09/16/24 MR#: [id number] Acct: [id number] Name: KATI MEDLEY Rep #: [id number] : 1945 Provider: Dr. Mirian roy MD Age/Sex: 79/M Location: BMS.IMB Status: Signed Intake Vital Signs 03/18/24 08:09 [...] M FU Chief Complaint: 6 M FU [employer] Required: No Accompanied by: Self Is patient [...] Hist ory gram/dose oral powder (Miralax) Pancreat-Bet NHd-aor-agpf-pap 250 cap PO DAILY 05/20/24 09/16/24 Hi story mg-162 mg-65 mg-125 mg capsule (Super Enzyme) trazodone 100 mg tablet 50 mg (1/2 x 100 mg) PO DAILY #45 05/28/24 09/16/24 Rx tabs Have you fallen in the [...] physical activity do you participate in: walking nadine/faith: Zoroastrian seatbelt use: always do you feel safe [...] Bowel isaura (more content not included)... Normal [facility] CBC W/Diff, Automatedon 04-0 Absolute Neut Normal 2.0-7.7 [facility] Comment on above: Result Comment: [facility] DID NOT HAVE LABS Performed By: #### L 500.4050, L100.0100 #### [facility] [address] [place], [address] HCT Normal 40-54 [facility] Comment on above: Result Comment: [facility] DID NOT HAVE LABS Performed By: #### L 500.4050, L100.0100 #### [facility] [address] [place], [address] HGB Normal 13.0-16.5 [facility] Comment on above: Result Comment: [facility] DID NOT HAVE LABS Performed By: #### L 500.4050, L100.0100 #### [facility] [address] [place], [address] MCH Normal 27.0-32.0 [facility] Comment on above: Result Comment: [facility] DID NOT HAVE LABS Performed By: #### L 500.4050, L100.0100 #### [facility] [address] [place], [address] MCHC Normal 32-36 [facility] Comment on above: Result Comment: [facility] DID NOT HAVE LABS Performed By: #### L 500.4050, L100.0100 #### [facility] [address] [place], [address] MCV Normal 80-94 [facility] Comment on above: Result Comment: [facility] DID NOT HAVE LABS Performed By: #### L 500.4050, L100.0100 #### [facility] [address] [place], [address] NEUT% Normal 47-70 [facility] Comment on above: Result Comment: [facility] DID NOT HAVE LABS Performed By: #### L 500.4050, L100.0100 #### [facility] [address] [place], [address] PLT Normal 150-450 [facility] Comment on above: Result Comment: [facility] DID NOT HAVE LABS Performed By: #### L 500.4050, L100.0100 #### [facility] [address] [place], [address] RBC Normal 4.6-6.2 [facility] Comment on above: Result Comment: [facility] DID NOT HAVE LABS Performed By: #### L 500.4050, L100.0100 #### [facility] [address] [place], [address] RDW CV Normal 11.6-14.6 [facility] Comment on above: Result Comment: [facility] DID NOT HAVE LABS Performed By: #### L 500.4050, L100.0100 #### [facility] [address] [place], [address] RDW SD Normal 35.1-43.9 [facility] Comment on above: Result Comment: [facility] DID NOT HAVE LABS Performed By: #### L 500.4050, L100.0100 #### [facility] [address] [place], [address] WBC Normal 4.4-11.0 [facility] Comment on above: Result Comment: [facility] DID NOT HAVE LABS Performed By: #### L 500.4050, L100.0100 #### [facility] [address] [place], [address] Comprehensive Metabolic Prof sridevi 07-08-2024 ALB Normal 3.4-4.8 [facility] Comment on above: Result Comment: [facility] DID NOT HAVE LABS Performed By: #### L 500.4050, L100.0100 #### [facility] [address] [place], [address] ALK PHOS Normal 40-129 [facility] Comment on above: Result Comment: [facility] DID NOT HAVE LABS Performed By: #### L 500.4050, L100.0100 #### [facility] [address] [place], [address] ALT Normal <=46 [facility] Comment on above: Result Comment: [facility] DID NOT HAVE LABS Performed By: #### L 500.4050, L100.0100 #### [facility] [address] [place], [address] AST Normal <=37 [facility] Comment on above: Result Comment: [facility] DID NOT HAVE LABS Performed By: #### L 500.4050, L100.0100 #### [facility] [address] [place], [address] BUN Normal 4-19 [facility] Comment on above: Result Comment: [facility] DID NOT HAVE LABS Performed By: #### L 500.4050, L100.0100 #### [facility] [address] [place], [address] BUN/CRE Normal 10-20 [facility] Comment on above: Result Comment: [facility] DID NOT HAVE LABS Performed By: #### L 500.4050, L100.0100 #### [facility] [address] [place], [address] Calcium Normal 7.6-11.0 [facility] Comment on above: Result Comment: [facility] DID NOT HAVE LABS Performed By: #### L 500.4050, L100.0100 #### [facility] [address] [place], [address] CL Normal 98-108 [facility] Comment on above: Result Comment: [facility] DID NOT HAVE LABS Performed By: #### L 500.4050, L100.0100 #### [facility] [address] [place], [address] CO2 Normal 21.0-32.0 [facility] Comment on above: Result Comment: [facility] DID NOT HAVE LABS Performed By: #### L 500.4050, L100.0100 #### [facility] [address] [place], [address] CREAT,SERUM Normal 0.70-1.20 [facility] Comment on above: Result Comment: [facility] DID NOT HAVE LABS Performed By: #### L 500.4050, L100.0100 #### [facility] [address] [place], [address] eGFR Normal >60 [facility] Comment on above: Result Comment: [facility] DID NOT HAVE LABS Performed By: #### L 500.4050, L100.0100 #### [facility] [address] [place], [address] GAP Normal 5-15 [facility] Comment on above: Result Comment: [facility] DID NOT HAVE LABS Performed By: #### L 500.4050, L100.0100 #### [facility] [address] [place], [address] GLU Normal 70-99 [facility] Comment on above: Result Comment: [facility] DID NOT HAVE LABS Performed By: #### L 500.4050, L100.0100 #### [facility] [address] [place], [address] Potassium Normal 3.3-5.1 [facility] Comment on above: Result Comment: [facility] DID NOT HAVE LABS Performed By: #### L 500.4050, L100.0100 #### [facility] [address] [place], [address] T BILI Normal 0.00-1.30 [facility] Comment on above: Result Comment: [facility] DID NOT HAVE LABS Performed By: #### L 500.4050, L100.0100 #### [facility] [address] [place], [address] T PROT Normal 5.9-8.4 [facility] Comment on above: Result Comment: [facility] DID NOT HAVE LABS Performed By: #### L 500.4050, L100.0100 #### [facility] [address] [place], [address] Comprehensive Metabolic Profil Normal 133-145 [facility] Comment on above: Result Comment: [facility] DID NOT HAVE LABS Performed By: #### L 500.4050, L100.0100 #### [facility] [address] [place], [address] MR/Moe 07-02-2024 MR/STEVEN.[place] [facility] [address] [place] [address] OFFICE VISIT Date of Service: 07/02/24 MR#: [id number] Acct: [id number] Name: KATI MEDLEY [place] Rep #: [id number] : 1945 Provider: Dr. Mirian roy MD Age/Sex: 79/M Location: [facility] Status: Signed Intake Vital Signs 05/28/24 08:11 [...] Lightheadedness Chief Complaint: Elevated BP, Headaches, Lightheadedness [employer] Required: No Accompanied by: Self Is patient [...] Hist ory gram/dose oral powder (Miralax) Pancreat-Bet AWd-wuq-nbfs-pap 250 cap PO DAILY 05/20/24 07/02/24 Hi [...] physical activity do you participate in: walking nadine/faith: Zoroastrian seatbelt use: always do you feel safe [...] every morning they have been generally speaking calciminer. Does not wake him up from sleep. [...] noted previously. (more content not included)... Normal [facility] 05-[facility] MR/BMS.IMB [facility] [address] [place], [place] [id number] OFFICE VISIT Date of Service: 05/28/24 MR#: [id number] Acct: [id number] Name: KATI MEDLEY Rep #: [id number] : 1945 Provider: Dr. Mirian roy MD Age/Sex: 79/M Location: [facility] Status: Signed with Addenda ADDENDUM by Mario [...] Fatigue Chief Complaint: review results, cough, fatigue [employer] Required: No Accompanied by: Self Is patient [...] Hist ory gram/dose oral powder (Miralax) Pancreat-Bet LKz-juu-ruud-pap 250 cap PO DAILY 05/20/24 05/28/24 Hi [...] physical activity do you participate in: walking nadine/faith: Zoroastrian seatbelt use: always do you feel safe at home: Yes HPI HPI Chief Complaint: review results, cough, fatigue Details: (more content not included)... Normal [facility] [facility] Cardiac Cath Diagnostic [facility] Imaging Services [address] [place] [address] Cardiac Cath Diagnostic MR#: [id number] Acct: [id number] Name: KATI MEDLEY Rep #: [id number] : 1945 79 From: Robby Hastings MD PCP: Dr. Mirian Ayoub MD Status:DEP [facility] Patient Name: KATI MEDLEY Study Date: 05/22/2024 Performing: Robby Hastings MD Ht: 70 inches 177.8 cm : 1945 Wt: 170.2 lbs 77.11 kg Age: 79 Gender: male BSA: 1.95 PROCEDURE(S) PERFORMED DC01-(41303)LHC/COR/L V CLINICAL PROFILE AND INDICATIONS Indications: Suspected [...] multiple views using a 5 Fr. 4.0 [place] catheter. Right Coronary Artery selective angiography was then performed in multiple views using a 5 Fr. 4.0 [place] catheter. Left Ventriculography was performed in PHAN [...] MD; Dr. Mirian Ayoub MD Date Dictated: 05/22/24937 Date Transcribed: 05/22/241540 Plant Custodian: CO Signed Normal [facility] Absolute lymphocyte countOrd ered By: Robby Hastings on 05-20-2024 Lymphocytes Auto (Unsp spec) [#/Vol] 2.00 10*3/uL 0.83-4.51 [facility] Absolute neutrophil countOrd ered By: Robby Hastings on 05-20-2024 Neutrophils (Bld) [#/Vol] 4.1 10*3/uL 2.0-7.7 [facility] Automated lymphocyte count a s percentage of total leukocytesOrdered By: Robby Hastings on 05-20-2024 Lymphocytes/100 WBC Auto (Unsp spec) 28.7 % 19-41 [facility] Basic Metabolic Profile (BMP )on 05-20-2024 BUN/CRE 12.8 RATIO Normal 10-20 [facility] Comment on above: Performed By: #### L 500.2500, L100.0100 #### [facility] [address] [place], [place], [id number] [place],Total 9.2 mg/dL Normal 8.5-10.1 [facility] Comment on above: Performed By: #### L 500.2500, L100.0100 #### [facility] [address] [place], [address] Chloride [Moles/Vol] 102 mmol/L Normal 98-107 [facility] Comment on above: Performed By: #### L 500.2500, L100.0100 #### [facility] [address] [place], [address] CO2 [Moles/Vol] 28.0 mmol/L Normal 21.0-32.0 [facility] Comment on above: Performed By: #### L 500.2500, L100.0100 #### [facility] [address] [place], [address] Creatinine [Mass/Vol] 1.09 mg/dL Normal 0.70-1.30 [facility] Comment on above: Result Comment: The validity of the calculated GFR GFRAA in patients over 70 years has not been determined. Clinical correlation is essential. Performed By: #### L 500.2500, L100.0100 #### [facility] [address] [place], [address] EST GFR - AA 84 mL/min Normal >60 [facility] Comment on above: Result Comment: Afri can Bahamian GFR Calc Performed By: #### L 500.2500, L100.0100 #### [facility] [address] [place], [address] GAP 5 Normal 5-15 [facility] Comment on above: Performed By: #### L 500.2500, L100.0100 #### [facility] [address] [place], [address] GFR/1.73 sq M.predicted among non-blacks MDRD (S/P/Bld) [Vol rate/Area] 69 mL/min/{1.73_m2} Normal >60 [facility] Comment on above: Result Comment: Non- GFR Calc Performed By: #### L 500.2500, L100.0100 #### [facility] [address] [place], [address] Glucose [Mass/Vol] 97 mg/dL Normal 74-106 [facility] Comment on above: Performed By: #### L 500.2500, L100.0100 #### [facility] [address] [place], [address] Potassium [Moles/Vol] 4.1 mmol/L Normal 3.5-5.1 [facility] Comment on above: Performed By: #### L 500.2500, L100.0100 #### [facility] [address] [place], [address] Sodium [Moles/Vol] 135 mmol/L Low 136-145 [facility] Comment on above: Performed By: #### L 500.2500, L100.0100 #### [facility] [address] [place], [address] Urea nitrogen [Mass/Vol] 14 mg/dL Normal 7-18 [facility] Comment on above: Performed By: #### L 500.2500, L100.0100 #### [facility] [address] [place], [address] Basophil percentageOrdered B y: Oglethorpe Venkata on 05-20-2024 Basophils/100 WBC (Bld) 0.6 % 0-1 [facility] Blood urea nitrogen (BUN)/cr eatinine ratioOrdered By: Oglethorpe Venkata on 05-20-2024 Urea nitrogen/Creatinine [Mass ratio] 12.8 mg/mg 10-20 [facility] CBC W/Diff, Automatedon 05-09 Absolute Lymph 2.00 X10 3/uL Normal 0.83-4.51 [facility] Comment on above: Performed By: #### L 500.2500, L100.0100 #### [facility] [address] [place], [address] Absolute Neut 4.1 X10 3/uL Normal 2.0-7.7 [facility] Comment on above: Performed By: #### L 500.2500, L100.0100 #### [facility] [address] [place], [address] Basophils/100 WBC (Bld) 0.6 % Normal 0-1 [facility] Comment on above: Performed By: #### L 500.2500, L100.0100 #### [facility] [address] [place], [address] Eosinophils/100 WBC (Bld) 2.0 % Normal 0-5 [facility] Comment on above: Performed By: #### L 500.2500, L100.0100 #### [facility] [address] [place], [address] Erythrocyte distribution width (RBC) [Ratio] 12.9 % Normal 11.6-14.6 [facility] Comment on above: Performed By: #### L 500.2500, L100.0100 #### [facility] [address] [place], [address] Hematocrit (Bld) [Volume fraction] 41.6 % Normal 40-54 [facility] Comment on above: Performed By: #### L 500.2500, L100.0100 #### [facility] [address] [place], [address] Hemoglobin (Bld) [Mass/Vol] 14.0 g/dL Normal 13.0-16.5 [facility] Comment on above: Performed By: #### L 500.2500, L100.0100 #### [facility] [address] [place], [address] IG% 0.400 Normal 0.0-0.9 [facility] Comment on above: Result Comment: IG% - Immature Granulocytes (promyelocytes, myelocytes and metamyelocytes) > 1% indicates that a LEFT SHIFT is Present. Performed By: #### L 500.2500, L100.0100 #### [facility] [address] [place], [address] Lymphocytes/100 WBC (Bld) 28.7 % Normal 19-41 [facility] Comment on above: Performed By: #### L 500.2500, L100.0100 #### [facility] [address] [place], [address] MCH (RBC) [Entitic mass] 31.7 pg Normal 27.0-32.0 [facility] Comment on above: Performed By: #### L 500.2500, L100.0100 #### [facility] [address] [place], [address] MCHC (RBC) [Mass/Vol] 33.7 g/dL Normal 32-36 [facility] Comment on above: Performed By: #### L 500.2500, L100.0100 #### [facility] [address] [place], [address] MCV (RBC) [Entitic vol] 94.3 fL High 80-94 [facility] Comment on above: Performed By: #### L 500.2500, L100.0100 #### [facility] [address] [place], [address] Monocytes/100 WBC (Bld) 9.2 % Normal 0-10 [facility] Comment on above: Performed By: #### L 500.2500, L100.0100 #### [facility] [address] [place], [address] Neutrophils/100 WBC (Bld) 59.1 % Normal 47-70 [facility] Comment on above: Performed By: #### L 500.2500, L100.0100 #### [facility] [address] [place], [address] Nucleated RBC (Bld) [#/Vol] 0 10*3/uL Normal 0-5 [facility] Comment on above: Performed By: #### L 500.2500, L100.0100 #### [facility] [address] [place], [address] Platelet mean volume (Bld) [Entitic vol] 8.8 fL Normal 6.2-12.0 [facility] Comment on above: Performed By: #### L 500.2500, L100.0100 #### [facility] [address] [place], [address] Platelets (Bld) [#/Vol] 213 10*3/uL Normal 150-450 [facility] Comment on above: Performed By: #### L 500.2500, L100.0100 #### [facility] [address] [place], [address] RBC (Bld) [#/Vol] 4.41 10*6/uL Low 4.6-6.2 [facility] Comment on above: Performed By: #### L 500.2500, L100.0100 #### [facility] [address] [place], [address] RDW SD 45.0 fl High 35.1-43.9 [facility] Comment on above: Performed By: #### L 500.2500, L100.0100 #### [facility] [address] [place], [address] WBC (Bld) [#/Vol] 7.0 10*3/uL Normal 4.4-11.0 [facility] Comment on above: Performed By: #### L 500.2500, L100.0100 #### [facility] [address] [place], [address] Carbon dioxide measurementOr dered By: Robby Hastings on 05-20-2024 CO2 [Moles/Vol] 28.0 mmol/L 21.0-32.0 [facility] Cardiology Visit Reporton Cardiology Visit Report [facility] [address] [place] [address] OFFICE VISIT Date of Service: 05/20/24 MR#: [id number] Acct: [id number] Name: KATI MEDLEY Rep #: [id number] : 1945 Provider: Dr. 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 Normal [facility] Chloride measurementOrdered By: Robby Hastings on 05-20-2024 Chloride [Moles/Vol] 102 mmol/L 98-107 [facility] Eosinophil percentageOrdered By: Robby Hastings on 05-20-2024 Eosinophils/100 WBC (Bld) 2.0 % 0-5 [facility] Erythrocyte distribution wid th ratioOrdered By: Robby Hastings on 05-20-2024 Erythrocyte distribution width (RBC) [Ratio] 12.9 % 11.6-14.6 [facility] Erythrocyte distribution wid th standard deviationOrdered By: Robby Hastings on 05-20-2024 Erythrocyte distribution width (RBC) [Ratio] 45.0 fl High 35.1-43.9 [facility] Glomerular filtration rate ( GFR) estimationOrdered By: Robby Hastings on 05-20-2024 GFR/1.73 sq M.predicted among non-blacks MDRD (S/P/Bld) [Vol rate/Area] 69 mL/min/{1.73_m2} >60 [facility] Comment on above: Non- GFR Calc Glucose measurementOrdered B y: Robby Hastings on 05-20-2024 Glucose [Mass/Vol] 97 mg/dL 74-106 [facility] Hematocrit Auto (Bld) [Volum e fraction]Ordered By: Robby Hastings on 05-20-2024 Hematocrit (Bld) [Volume fraction] 41.6 % 40-54 [facility] Hemoglobin measurementOrdere d By: Oglethorpe Venkata on 05-20-2024 Hemoglobin (Bld) [Mass/Vol] 14.0 g/dL 13.0-16.5 [facility] Immature granulocytes/100 WB C Auto (Bld)Ordered By: Oglethorpe Venkata on 05-20-2024 Immature granulocytes/100 WBC (Bld) 0.400 % 0.0-0.9 [facility] Comment on above: IG% - Immature Granu locytes (promyelocytes, myelocytes and metamyelocytes) > 1% indicates that a LEFT SHIFT is Present. MCV (mean corpuscular volume ) determinationOrdered By: Robby Hastings on 05-20-2024 MCV (RBC) [Entitic vol] 94.3 fL High 80-94 [facility] Mean corpuscular hemoglobin (MCH) determinationOrdered By: Robby Venkata on 05-20-2024 MCH (RBC) [Entitic mass] 31.7 pg 27.0-32.0 [facility] Mean corpuscular hemoglobin concentration (MCHC) determinationOrdered By: Oglethorpe Venkata on 05-20-2024 MCHC (RBC) [Mass/Vol] 33.7 g/dL 32-36 [facility] Mean platelet volume determi nationOrdered By: Oglethorpe Venkata on 05-20-2024 Platelet mean volume (Bld) [Entitic vol] 8.8 fL 6.2-12.0 [facility] Monocyte percentageOrdered B y: Oglethorpe Venkata on 05-20-2024 Monocytes/100 WBC (Bld) 9.2 % 0-10 [facility] Neutrophil percentageOrdered By: Robby Venkata on 05-20-2024 Neutrophils/100 WBC (Bld) 59.1 % 47-70 [facility] Nucleated red blood cell per centageOrdered By: Robby Hastings on 05-20-2024 Nucleated RBC/100 WBC (Bld) [Ratio] 0 % 0-5 [facility] Platelet countOrdered By: Richard Wattsori on 05-20-2024 Platelets (Bld) [#/Vol] 213 10*3/uL 150-450 [facility] Potassium measurementOrdered By: Robby Venkata on 05-20-2024 Potassium [Moles/Vol] 4.1 mmol/L 3.5-5.1 [facility] RBC Auto (Bld) [#/Vol]Ordere d By: Robby Venkata on 05-20-2024 RBC (Bld) [#/Vol] 4.41 10*6/uL Low 4.6-6.2 [facility] Serum anion gap measurementO rdered By: Robby Venkata on 05-20-2024 Anion gap [Moles/Vol] 5 mmol/L 5-15 [facility] Serum or plasma calcium alessandra urement (mass/volume)Ordered By: Robby Hastings on 05-20-2024 Calcium [Mass/Vol] 9.2 mg/dL 8.5-10.1 [facility] Serum or plasma creatinine m easurement (mass/volume)Ordered By: Robby Venkata on 05-20-2024 Creatinine [Mass/Vol] 1.09 mg/dL 0.70-1.30 [facility] Comment on above: The validity of the calculated GFR & GFRAA in patients over 70 years has not been determined. Clinical correlation is essential. Serum or plasma urea nitroge n measurement (mass/volume)Ordered By: Robby Hastings on 05-20-2024 Urea nitrogen [Mass/Vol] 14 mg/dL 7-18 [facility] Sodium levelOrdered By: Juvencio Hastings on 05-20-2024 Sodium [Moles/Vol] 135 mmol/L Low 136-145 [facility] White blood cell (WBC) count Ordered By: Robby Venkata on 05-20-2024 WBC (Bld) [#/Vol] 7.0 10*3/uL 4.4-11.0 [facility] Stress Reporton 05-18-2024 Stress Report [facility] [address] [place] [address] MR#: [id number] Acct: [id number] Name: KATI MEDLEY Rep #: [id number] : 1945 79 From: Robby Hastings MD Primary Care: Dr. Mirian Ayoub MD Status: REG I Referring Dr: Mirian Ayoub MD Sex: M [...] MD Date Dictated: 05/18/241318 Date Transcribed: 05/18/241318 Plant Custodian: CO Signed Normal [facility] MR/BMS.IMBon 05-14-2024 MR/BMS.IMB [facility] [address] [facility] [address] [facility] [address] [facility] [address] [place] [address] OFFICE VISIT Date of Service: 05/14/24 MR#: [id number] Acct: [id number] Name: KATI MEDLEY Rep #: [id number] : 1945 Provider: Dr. 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 So [employer] may not be in his best interest. The long-haul. I have asked him to (more content not included)... Normal [facility] CBC W/Diff, Automatedon 12-2 -2023 Absolute Lymph 2.05 X10 3/uL Normal 0.83-4.51 [facility] Comment on above: Performed By: #### L 500.4050, L101.9900, L100.0100, L501.6710 #### [facility] [address] [place], [address] Absolute Neut 3.7 X10 3/uL Normal 2.0-7.7 [facility] Comment on above: Performed By: #### L 500.4050, L101.9900, L100.0100, L501.6710 #### [facility] [address] [place], [address] Basophils/100 WBC (Bld) 0.7 % Normal 0-1 [facility] Comment on above: Performed By: #### L 500.4050, L101.9900, L100.0100, L501.6710 #### [facility] [address] [place], [address] Eosinophils/100 WBC (Bld) 2.7 % Normal 0-5 [facility] Comment on above: Performed By: #### L 500.4050, L101.9900, L100.0100, L501.6710 #### [facility] [address] [place], [address] Erythrocyte distribution width (RBC) [Ratio] 13.2 % Normal 11.6-14.6 [facility] Comment on above: Performed By: #### L 500.4050, L101.9900, L100.0100, L501.6710 #### [facility] [address] [place], [address] Hematocrit (Bld) [Volume fraction] 44.2 % Normal 40-54 [facility] Comment on above: Performed By: #### L 500.4050, L101.9900, L100.0100, L501.6710 #### [facility] [address] [place], [address] Hemoglobin (Bld) [Mass/Vol] 14.7 g/dL Normal 13.0-16.5 [facility] Comment on above: Performed By: #### L 500.4050, L101.9900, L100.0100, L501.6710 #### [facility] [address] [place], [address] IG% 1.200 High 0.0-0.9 [facility] Comment on above: Result Comment: IG% - Immature Granulocytes (promyelocytes, myelocytes and metamyelocytes) > 1% indicates that a LEFT SHIFT is Present. Performed By: #### L 500.4050, L101.9900, L100.0100, L501.6710 #### [facility] [address] [place], [address] Lymphocytes/100 WBC (Bld) 30.6 % Normal 19-41 [facility] Comment on above: Performed By: #### L 500.4050, L101.9900, L100.0100, L501.6710 #### [facility] [address] [place], [address] MCH (RBC) [Entitic mass] 31.7 pg Normal 27.0-32.0 [facility] Comment on above: Performed By: #### L 500.4050, L101.9900, L100.0100, L501.6710 #### [facility] [address] [place], [address] MCHC (RBC) [Mass/Vol] 33.3 g/dL Normal 32-36 [facility] Comment on above: Performed By: #### L 500.4050, L101.9900, L100.0100, L501.6710 #### [facility] [address] [place], [address] MCV (RBC) [Entitic vol] 95.3 fL High 80-94 [facility] Comment on above: Performed By: #### L 500.4050, L101.9900, L100.0100, L501.6710 #### [facility] [address] [place], [address] Monocytes/100 WBC (Bld) 9.6 % Normal 0-10 [facility] Comment on above: Performed By: #### L 500.4050, L101.9900, L100.0100, L501.6710 #### [facility] [address] [place], [address] Neutrophils/100 WBC (Bld) 55.2 % Normal 47-70 [facility] Comment on above: Performed By: #### L 500.4050, L101.9900, L100.0100, L501.6710 #### [facility] [address] [place], [address] Nucleated RBC (Bld) [#/Vol] 0 10*3/uL Normal 0-5 [facility] Comment on above: Performed By: #### L 500.4050, L101.9900, L100.0100, L501.6710 #### [facility] [address] [place], [address] Platelet mean volume (Bld) [Entitic vol] 8.6 fL Normal 6.2-12.0 [facility] Comment on above: Performed By: #### L 500.4050, L101.9900, L100.0100, L501.6710 #### [facility] [address] [place], [address] Platelets (Bld) [#/Vol] 223 10*3/uL Normal 150-450 [facility] Comment on above: Performed By: #### L 500.4050, L101.9900, L100.0100, L501.6710 #### [facility] [address] [place], [address] RBC (Bld) [#/Vol] 4.64 10*6/uL Normal 4.6-6.2 [facility] Comment on above: Performed By: #### L 500.4050, L101.9900, L100.0100, L501.6710 #### [facility] [address] [place], [address] RDW SD 45.9 fl High 35.1-43.9 [facility] Comment on above: Performed By: #### L 500.4050, L101.9900, L100.0100, L501.6710 #### [facility] [address] [place], [address] WBC (Bld) [#/Vol] 6.7 10*3/uL Normal 4.4-11.0 [facility] Comment on above: Performed By: #### L 500.4050, L101.9900, L100.0100, L501.6710 #### [facility] [address] [place], [address] CRPon 03-31-2024 C-REACTIVE PROT < 2.90 Normal 0.0-3.0 [facility] Comment on above: Result Comment: C-Re active Protein (CRP) provides useful information for the diagnosis, therapy and monitoring of inflammatory processes and associated diseases. For the evaluation of Relative Risk for Cardiovascular Disease, a High Sensitivity CRP (HSCRP) should be ordered. Performed By: #### L 500.4050, L101.9900, L100.0100, L501.6710 #### [facility] [address] [place], [address] Chest PA and Lateralon 03-31 Chest PA and Lateral [facility] Imaging Services [address] [place] [address] Chest PA and Lateral MR#: [id number] Acct: [id number] Name: KATI MEDLEY Rep #: [id number] : 1945 M 78 From: Trell Moise MD PCP: Dr. Mirian Ayoub MD Status: REG CLI Study: Chest PA and Lateral Date of Exam: 03/31/24 Exam# [id number] Ordering Dr: Mirian Ayoub MD [id number] STUDY: X-RAY CHEST REASON FOR EXAM: Male, [...] EST , CC: Dr. Mirian Ayoub MD Plant Custodian: Signed Normal [facility] Comprehensive Metabolic Prof sridevi 03-31-2024 Albumin [Mass/Vol] 3.9 g/dL Normal 3.2-5.0 [facility] Comment on above: Performed By: #### L 500.4050, L101.9900, L100.0100, L501.6710 #### [facility] [address] [place], [address] Albumin/Globulin [Mass ratio] 1.1 {ratio} Normal 0.9-2.4 [facility] Comment on above: Performed By: #### L 500.4050, L101.9900, L100.0100, L501.6710 #### [facility] [address] [place], [address] ALK P 76 U/L Normal 45-117 [facility] Comment on above: Performed By: #### L 500.4050, L101.9900, L100.0100, L501.6710 #### [facility] [address] [place], [address] ALT [Catalytic activity/Vol] 16 U/L Normal 16-61 [facility] Comment on above: Performed By: #### L 500.4050, L101.9900, L100.0100, L501.6710 #### [facility] [address] [place], [address] AST [Catalytic activity/Vol] 12 U/L Low 15-37 [facility] Comment on above: Performed By: #### L 500.4050, L101.9900, L100.0100, L501.6710 #### [facility] [address] [place], [address] Bilirubin [Mass/Vol] 0.60 mg/dL Normal 0.20-1.00 [facility] Comment on above: Result Comment: For patients on eltrombopag therapy, use of [place] TBIL is not recommended. Performed By: #### L 500.4050, L101.9900, L100.0100, L501.6710 #### [facility] [address] [place], [address] BUN/CRE 8.9 RATIO Low 10-20 [facility] Comment on above: Performed By: #### L 500.4050, L101.9900, L100.0100, L501.6710 #### [facility] [address] [place], [address] CA,Total 9.3 mg/dL Normal 8.5-10.1 [facility] Comment on above: Performed By: #### L 500.4050, L101.9900, L100.0100, L501.6710 #### [facility] [address] [place], [address] Chloride [Moles/Vol] 103 mmol/L Normal 98-107 [facility] Comment on above: Performed By: #### L 500.4050, L101.9900, L100.0100, L501.6710 #### [facility] [address] [place], [address] CO2 [Moles/Vol] 31.0 mmol/L Normal 21.0-32.0 [facility] Comment on above: Performed By: #### L 500.4050, L101.9900, L100.0100, L501.6710 #### [facility] [address] [place], [address] Creatinine [Mass/Vol] 1.12 mg/dL Normal 0.70-1.30 [facility] Comment on above: Result Comment: The validity of the calculated GFR GFRAA in patients over 70 years has not been determined. Clinical correlation is essential. Performed By: #### L 500.4050, L101.9900, L100.0100, L501.6710 #### [facility] [address] [place], [address] EST GFR - AA 81 mL/min Normal >60 [facility] Comment on above: Result Comment: Afri can Bahamian GFR Calc Performed By: #### L 500.4050, L101.9900, L100.0100, L501.6710 #### [facility] [address] [place], [address] GAP 2 Low 5-15 [facility] Comment on above: Performed By: #### L 500.4050, L101.9900, L100.0100, L501.6710 #### [facility] [address] [place], [address] GFR/1.73 sq M.predicted among non-blacks MDRD (S/P/Bld) [Vol rate/Area] 67 mL/min/{1.73_m2} Normal >60 [facility] Comment on above: Result Comment: Non- GFR Calc Performed By: #### L 500.4050, L101.9900, L100.0100, L501.6710 #### [facility] [address] [place], [address] Globulin (S) [Mass/Vol] 3.7 g/dL Normal 2.2-4.2 [facility] Comment on above: Performed By: #### L 500.4050, L101.9900, L100.0100, L501.6710 #### [facility] [address] [place], [address] Glucose [Mass/Vol] 100 mg/dL Normal 74-106 [facility] Comment on above: Result Comment: Fast ing Glucose result from 100 to 125 mg/dL suggests IMPAIRED HOMEOSTASIS per A.D.A. criteria. Performed By: #### L 500.4050, L101.9900, L100.0100, L501.6710 #### [facility] [address] [place], [address] Potassium [Moles/Vol] 3.9 mmol/L Normal 3.5-5.1 [facility] Comment on above: Performed By: #### L 500.4050, L101.9900, L100.0100, L501.6710 #### [facility] [address] [place], [address] Sodium [Moles/Vol] 136 mmol/L Normal 136-145 [facility] Comment on above: Performed By: #### L 500.4050, L101.9900, L100.0100, L501.6710 #### [facility] [address] [place], [address] T PROT 7.6 g/dL Normal 6.4-8.2 [facility] Comment on above: Performed By: #### L 500.4050, L101.9900, L100.0100, L501.6710 #### [facility] [address] [place], [address] Urea nitrogen [Mass/Vol] 10 mg/dL Normal 7-18 [facility] Comment on above: Performed By: #### L 500.4050, L101.9900, L100.0100, L501.6710 #### [facility] [address] [place], [address] Erythrocyte Sed Rateon 03-31 SED RATE 3 mm/hr Normal 0-20 [facility] Comment on above: Performed By: #### L 500.4050, L101.9900, L100.0100, L501.6710 #### [facility] [address] [place], [address] /Moe 03-18-2024 MR/BMS.IMB [facility] [address] [place] [address] OFFICE VISIT Date of Service: 03/18/24 MR#: [id number] Acct: [id number] Name: KATI MEDLEY Rep #: [id number] : 1945 Provider: Dr. Mirian roy MD Age/Sex: 78/M Location: [facility] Status: Signed Intake Vital Signs 10/17/23 08:07 [...] M FU Chief Complaint: 6 m fu [employer] Required: No Accompanied by: Self Is patient [...] physical activity do you participate in: walking nadine/faith: Zoroastrian seatbelt use: always do you feel safe [...] but certai (more content not included)... Normal [facility] Comprehensive Metabolic Prof ilon 03-13-2024 Albumin [Mass/Vol] 3.5 g/dL Normal 3.2-5.0 [facility] Comment on above: Performed By: #### L 500.4050, L500.4100 #### [facility] [address] [place], [address] Albumin/Globulin [Mass ratio] 1.0 {ratio} Normal 0.9-2.4 [facility] Comment on above: Performed By: #### L 500.4050, L500.4100 #### [facility] [address] [place], [address] ALK P 70 U/L Normal 45-117 [facility] Comment on above: Performed By: #### L 500.4050, L500.4100 #### [facility] [address] [facility] [place], [address] ALT [Catalytic activity/Vol] 21 U/L Normal 16-61 [facility] Comment on above: Performed By: #### L 500.4050, L500.4100 #### [facility] [address] [place], [address] AST [Catalytic activity/Vol] 17 U/L Normal 15-37 [facility] Comment on above: Performed By: #### L 500.4050, L500.4100 #### [facility] [address] [place], [address] Bilirubin [Mass/Vol] 0.60 mg/dL Normal 0.20-1.00 [facility] Comment on above: Result Comment: For patients on eltrombopag therapy, use of [place] TBIL is not recommended. Performed By: #### L 500.4050, L500.4100 #### [facility] [address] [place], [address] BUN/CRE 9.8 RATIO Low 10-20 [facility] Comment on above: Performed By: #### L 500.4050, L500.4100 #### [facility] [address] [place], [address] CA,Total 9.1 mg/dL Normal 8.5-10.1 [facility] Comment on above: Performed By: #### L 500.4050, L500.4100 #### [facility] [address] [place], [address] Chloride [Moles/Vol] 110 mmol/L High 98-107 [facility] Comment on above: Performed By: #### L 500.4050, L500.4100 #### [facility] [address] [place], [address] CO2 [Moles/Vol] 29.0 mmol/L Normal 21.0-32.0 [facility] Comment on above: Performed By: #### L 500.4050, L500.4100 #### [facility] [address] [place], [address] Creatinine [Mass/Vol] 1.02 mg/dL Normal 0.70-1.30 [facility] Comment on above: Result Comment: The validity of the calculated GFR GFRAA in patients over 70 years has not been determined. Clinical correlation is essential. Performed By: #### L 500.4050, L500.4100 #### [facility] [address] [place], [address] EST GFR - AA 91 mL/min Normal >60 [facility] Comment on above: Result Comment: Afri can Bahamian GFR Calc Performed By: #### L 500.4050, L500.4100 #### [facility] [address] [place], [address] GAP 3 Low 5-15 [facility] Comment on above: Performed By: #### L 500.4050, L500.4100 #### [facility] [address] [place], [address] GFR/1.73 sq M.predicted among non-blacks MDRD (S/P/Bld) [Vol rate/Area] 75 mL/min/{1.73_m2} Normal >60 [facility] Comment on above: Result Comment: Non- GFR Calc Performed By: #### L 500.4050, L500.4100 #### [facility] [address] [place], [address] Globulin (S) [Mass/Vol] 3.5 g/dL Normal 2.2-4.2 [facility] Comment on above: Performed By: #### L 500.4050, L500.4100 #### [facility] [address] [place], [address] Glucose [Mass/Vol] 92 mg/dL Normal 74-106 [facility] Comment on above: Performed By: #### L 500.4050, L500.4100 #### [facility] [address] [place], [address] Potassium [Moles/Vol] 4.0 mmol/L Normal 3.5-5.1 [facility] Comment on above: Performed By: #### L 500.4050, L500.4100 #### [facility] [address] [place], [address] Sodium [Moles/Vol] 142 mmol/L Normal 136-145 [facility] Comment on above: Performed By: #### L 500.4050, L500.4100 #### [facility] [address] [place], [address] T PROT 7.0 g/dL Normal 6.4-8.2 [facility] Comment on above: Performed By: #### L 500.4050, L500.4100 #### [facility] [address] [place], [address] Urea nitrogen [Mass/Vol] 10 mg/dL Normal 7-18 [facility] Comment on above: Performed By: #### L 500.4050, L500.4100 #### [facility] [address] [place], [address] Lipid Profileon 03-13-2024 Cholesterol [Mass/Vol] 235 mg/dL High 200 [facility] Comment on above: Result Comment: <200 mg/dL Desirable 200-240 mg/dL Borderline >240 mg/dL High Risk Performed By: #### L 500.4050, L500.4100 #### [facility] [address] [place], [address] Cholesterol in HDL [Mass/Vol] 63 mg/dL Normal [facility] Comment on above: Result Comment: The drugs N-Acetylcysteine and Metamizole may falsely depress this assay. Reference Range HDL <40 mg/dL Low HDL Cholesterol HDL >or= 60 mg/dL High HDL Cholesterol Performed By: #### L 500.4050, L500.4100 #### [facility] [address] [place], [address] Cholesterol in LDL [Mass/Vol] 156 mg/dL High 0-130 [facility] Comment on above: Performed By: #### L 500.4050, L500.4100 #### [facility] [address] [place], [address] Cholesterol in VLDL [Mass/Vol] 16 mg/dL Normal 5-40 [facility] Comment on above: Performed By: #### L 500.4050, L500.4100 #### [facility] [address] [place], [address] Triglyceride [Mass/Vol] 79 mg/dL Normal [facility] Comment on above: Result Comment: The drugs N-Acetylcysteine and Metamizole may falsely depress this assay. Serum Triglycerides Reference Interval Normal <150 mg/dL Borderline high 150 - 199 mg/dL High 200 - 499 mg/dL Very High > or = 500 mg/dL Performed By: #### L 500.4050, L500.4100 #### [facility] [address] [place], [address] Surgery Visit Reporton 02-03 Surgery Visit Report [facility] [address] [place] [address] OFFICE VISIT Date of Service: 02/04/24 MR#: [id number] Acct: [id number] Name: KATI MEDLEY [place] Rep #: [id number] : 1945 Provider: Dr. Austin perla MD Age/Sex: 78/M Location: [facility] Status: Signed Intake Vital Signs 01/22/24 [...] BOWEL HABITS Chief Complaint: change in bowels [employer] Required: No Is patient in pain?: No [...] physical activity do you participate in: walking nadine/faith: Zoroastrian seatbelt use: always do you feel safe [...] sensory defic (more content not included)... Normal [facility] MR/Moe 01-22-2024 MR/STEVEN.VIRI [facility] [address] [facility] [place] [address] OFFICE VISIT Date of Service: 01/22/24 MR#: [id number] Acct: [id number] Name: KATI MEDLEY Rep #: [id number] : 1945 Provider: Dr. Mirian roy MD Age/Sex: 78/M Location: [facility] Status: Signed Intake Vital Signs 10/17/23 [...] Reasons: Stomach pain Chief Complaint: stomach pain [employer] Required: No Accompanied by: Self Is patient [...] physical activity do you participate in: walking nadine/faith: Zoroastrian seatbelt use: always do you feel safe [...] rub. Abd (more content not included)... Normal [facility] Gram stain for investigation of transfusion reactionOrdered By: Erlin Rangel on 08-08-2023 Microscopic observation Gram stain Nom (Unsp spec) [facility] No Panel InformationOrdered By: Erlin Rangel on 08-08-2023 Nasopharyngeal Culture [facility] Basophil percentageOrdered B y: Mirian Ayoub on 10-19-2022 Cholesterol [Mass/Vol] 222 mg/dL <200 [facility] Comment on above: <200 mg/dL Desirable 200-240 mg/dL Borderline >240 mg/dL High Risk Triglyceride [Mass/Vol] 68 mg/dL <199 [facility] Comment on above: The drugs N-Acetylcy steine and Metamizole may falsely depress this assay.Serum Triglycerides Reference Interval Normal <150 mg/dL Borderline high 150 - 199 mg/dL High 200 - 499 mg/dL Very High > or = 500 mg/dL No Panel InformationOrdered By: Mirian Ayoub on 10-19-2022 Thyroid Stimulating Hormone (TSH) 0.88 uIU/mL 0.358-3.74 [facility] Serum or plasma cholesterol in HDL measurement (mass/volume)Ordered By: Mirian Ayoub on 10-19-2022 Cholesterol in HDL [Mass/Vol] 56 mg/dL >40 [facility] Comment on above: The drugs N-Acetylcy steine and Metamizole may falsely depress this assay. Reference Range HDL <40 mg/dL Low HDL Cholesterol HDL >or= 60 mg/dL High HDL Cholesterol Serum or plasma cholesterol in VLDL measurement (mass/volume)Ordered By: Mirian Ayoub on 10-19-2022 Cholesterol in VLDL [Mass/Vol] 14 mg/dL 5-40 [facility] Serum or plasma low density lipoprotein (LDL) cholesterol measurement (mass/volume)Ordered By: Mirian Ayoub on 10-19-2022 Cholesterol in LDL [Mass/Vol] 152 mg/dL 0-130 [facility] Absolute lymphocyte countOrd ered By: Mirian Ayoub on 10-01-2022 Lymphocytes Auto (Unsp spec) [#/Vol] 1.82 10*3/uL 0.83-4.51 [facility] Basophil percentageOrdered B y: Mirian Ayoub on 10-01-2022 Basophils/100 WBC (Bld) 0.8 % 0-1 [facility] Bilirubin [Mass/Vol] 0.70 mg/dL 0.20-1.00 [facility] Comment on above: For patients on eltr ombopag therapy, use of [place] TBIL is not recommended. Chloride [Moles/Vol] 108 mmol/L 98-107 [facility] Cholesterol [Mass/Vol] 249 mg/dL <200 [facility] Comment on above: <200 mg/dL Desirable 200-240 mg/dL Borderline >240 mg/dL High Risk Eosinophils/100 WBC (Bld) 2.7 % 0-5 [facility] Glucose [Mass/Vol] 96 mg/dL 74-106 [facility] Neutrophils (Bld) [#/Vol] 3.3 10*3/uL 2.0-7.7 [facility] Neutrophils/100 WBC (Bld) 55.9 % 47-70 [facility] Potassium [Moles/Vol] 3.8 mmol/L 3.5-5.1 [facility] Protein [Mass/Vol] 7.3 g/dL 6.4-8.2 [facility] Sodium [Moles/Vol] 139 mmol/L 136-145 [facility] Triglyceride [Mass/Vol] 75 mg/dL <199 [facility] Comment on above: The drugs N-Acetylcy steine and Metamizole may falsely depress this assay.Serum Triglycerides Reference Interval Normal <150 mg/dL Borderline high 150 - 199 mg/dL High 200 - 499 mg/dL Very High > or = 500 mg/dL WBC (Bld) [#/Vol] 5.9 10*3/uL 4.4-11.0 [facility] Blood erythrocytes count (nu mber/volume)Ordered By: Mirian Ayoub on 10-01-2022 RBC (Bld) [#/Vol] 4.85 10*6/uL 4.6-6.2 [facility] Blood hemoglobin measurement (mass/volume)Ordered By: Mirian Ayoub on 10-01-2022 Hemoglobin (Bld) [Mass/Vol] 14.8 g/dL 13.0-16.5 [facility] Blood lymphocytes/100 leukoc ytesOrdered By: Mirian Ayoub on 10-01-2022 Lymphocytes/100 WBC (Bld) 30.8 % 19-41 [facility] Blood monocytes/100 leukocyt esOrdered By: Mirian Ayoub on 10-01-2022 Monocytes/100 WBC (Bld) 9.3 % 0-10 [facility] Blood platelet mean volumeOr dered By: Mirian Ayoub on 10-01-2022 Platelet mean volume (Bld) [Entitic vol] 9.2 fL 6.2-12.0 [facility] Determination of erythrocyte mean corpuscular volume (MCV)Ordered By: Mirian Ayoub on 10-01-2022 MCV (RBC) [Entitic vol] 92.2 fL 80-94 [facility] Hematocrit Auto (Bld) [Volum e fraction]Ordered By: Mirian Ayoub on 10-01-2022 Hematocrit (Bld) [Volume fraction] 44.7 % 40-54 [facility] - Chemistry and C hemistry - challengeOrdered By: Mirian Ayoub on 10-01-2022 ALP [Catalytic activity/Vol] 80 U/L 45-117 [facility] ALT [Catalytic activity/Vol] 20 U/L 16-61 [facility] CO2 [Moles/Vol] 27.0 mmol/L 21.0-32.0 [facility] Globulin (S) [Mass/Vol] 3.9 g/dL 2.2-4.2 [facility] Urea nitrogen/Creatinine [Mass ratio] 11.7 mg/mg 10-20 [facility] - Hematology and Cell countsOrdered By: Mirian Ayoub on 10-01-2022 Erythrocyte distribution width (RBC) [Entitic vol] 45.2 fL 35.1-43.9 [facility] Erythrocyte distribution width (RBC) [Ratio] 13.2 % 11.6-14.6 [facility] Immature granulocytes/100 WBC (Bld) 0.500 % 0.0-0.9 [facility] Comment on above: IG% - Immature Granu locytes (promyelocytes, myelocytes and metamyelocytes) > 1% indicates that a LEFT SHIFT is Present. MCH (RBC) [Entitic mass] 30.5 pg 27.0-32.0 [facility] Nucleated RBC/100 WBC (Bld) [Ratio] 0 % 0-5 [facility] MCHC Auto (RBC) [Mass/Vol]Or dered By: Mirian Ayoub on 10-01-2022 MCHC (RBC) [Mass/Vol] 33.1 g/dL 32-36 [facility] No Panel InformationOrdered By: Mirian Ayoub on 10-01-2022 Estimated GFR (MDRD) Amer 83 mL/min >60 [facility] Comment on above: GFR Calc Estimated GFR (MDRD) Non-Af Amer 68 mL/min >60 [facility] Comment on above: Non- GFR Calc Prostate Specific Antigen Screen 0.68 ng/mL 0.00-4.00 [facility] Comment on above: This test was perfor med using the TPSA assay method for the[facility] chemistry system. Values obtained with differentassay methods cannot be used interchangably.When changing PSA assays in the course of monitoring apatient, additional sequential testing should be carriedout to confirm baseline values. Thyroid Stimulating Hormone (TSH) 0.87 uIU/mL 0.358-3.74 [facility] Vitamin D 25-Hydroxy 88.7 ng/mL [facility] Comment on above: Vitamin D 25(OH) Sta tus Range Deficiency <20 ng/mL (50nmol/L) Insufficiency 20 - 30 ng/mL (50 - 75 nmol/L) Sufficiency 30 - 100 ng/mL (75 - 250 nmol/L) Toxicity >100 ng/mL (>250 nmol/L) Platelets bldOrdered By: Lyndsay Ayoub on 10-01-2022 Platelets (Bld) [#/Vol] 207 10*3/uL 150-450 [facility] Serum or plasma albumin alessandra urement (mass/volume)Ordered By: Mirian Ayoub on 10-01-2022 Albumin [Mass/Vol] 3.4 g/dL 3.2-5.0 [facility] Serum or plasma albumin/glob ulin mass ratioOrdered By: Mirian Ayoub on 10-01-2022 Albumin/Globulin [Mass ratio] 0.9 {ratio} 0.9-2.4 [facility] Serum or plasma calcium alessandra urement (mass/volume)Ordered By: Mirian Ayoub on 10-01-2022 Calcium [Mass/Vol] 9.0 mg/dL 8.5-10.1 [facility] Serum or plasma cholesterol in HDL measurement (mass/volume)Ordered By: Mirian Ayoub on 10-01-2022 Cholesterol in HDL [Mass/Vol] 55 mg/dL >40 [facility] Comment on above: The drugs N-Acetylcy steine and Metamizole may falsely depress this assay. Reference Range HDL <40 mg/dL Low HDL Cholesterol HDL >or= 60 mg/dL High HDL Cholesterol Serum or plasma cholesterol in VLDL measurement (mass/volume)Ordered By: Mirian Ayoub on 10-01-2022 Cholesterol in VLDL [Mass/Vol] 15 mg/dL 5-40 [facility] Serum or plasma creatinine m easurement (mass/volume)Ordered By: Mirian Ayoub on 10-01-2022 Creatinine [Mass/Vol] 1.11 mg/dL 0.70-1.30 [facility] Comment on above: The validity of the calculated GFR & GFRAA in patients over 70 years has not been determined. Clinical correlation is essential. Serum or plasma low density lipoprotein (LDL) cholesterol measurement (mass/volume)Ordered By: Mirian Ayoub on 10-01-2022 Cholesterol in LDL [Mass/Vol] 179 mg/dL 0-130 [facility] Serum or plasma urea nitroge n measurement (mass/volume)Ordered By: Mirian Ayoub on 10-01-2022 Urea nitrogen [Mass/Vol] 13 mg/dL 7-18 [facility] Thin prep Papanicolaou smear with manual screeningOrdered By: Mirian Ayoub on 10-01-2022 Thin prep Papanicolaou smear with manual screening 16 U/L 15-37 [facility] Thin prep Papanicolaou smear with manual screening 4 5-15 [facility] Vital Signs Date Time Vital Sign Value Performing Clinician Sameer bacon 10-28-2024 11:01-0400 Body height 177.[address] Mirian Ayoub MD Work Phone: [facility] 10-28-2024 11:01-0400 Body mass index (BMI) [Ratio] 24.3 kg/m2 Dr. Mirian Ayoub MD Work Phone: [facility] 10-28-2024 11:01-0400 Body temperature 98.4 [degF] Dr. Mirian Ayoub MD Work Phone: [facility] 10-28-2024 11:01-0400 Body weight 77.[address] Mirian Ayoub MD Work Phone: [facility] 10-28-2024 11:01-0400 Diastolic blood pressure 76 mm[Hg] Dr. Mirian Ayoub MD Work Phone: [facility] 10-28-2024 11:01-0400 Heart rate 49 /min Dr. Mirian Ayoub MD Work Phone: [facility] 10-28-2024 11:01-0400 Respiratory rate 16 /min Dr. Mirian Ayoub MD Work Phone: [facility] 10-28-2024 11:01-0400 SaO2% (BldA) [Mass fraction] 96 % Dr. Mirian Ayoub MD Work Phone: [facility] 10-28-2024 11:01-0400 Systolic blood pressure 157 mm[Hg] Dr. Mirian Ayoub MD Work Phone: [facility] 09-16-2024 08:08-0400 Body height 177.[address] Mirian Ayoub MD Work Phone: [facility] 09-16-2024 08:08-0400 Body mass index (BMI) [Ratio] 24.3 kg/m2 Dr. Mirian Ayoub MD Work Phone: [facility] 09-16-2024 08:08-0400 Body temperature 98.2 [degF] Dr. Mirian Ayoub MD Work Phone: [facility] 09-16-2024 08:08-0400 Body weight 76.[address] Mirian Ayoub MD Work Phone: [facility] 09-16-2024 08:08-0400 Diastolic blood pressure 82 mm[Hg] Dr. Mirian Ayoub MD Work Phone: [facility] 09-16-2024 08:08-0400 Heart rate 47 /min Dr. Mirian Ayoub MD Work Phone: [facility] 09-16-2024 08:08-0400 Respiratory rate 16 /min Dr. Mirian Ayoub MD Work Phone: [facility] 09-16-2024 08:08-0400 SaO2% (BldA) [Mass fraction] 96 % Dr. Mirian Ayoub MD Work Phone: [facility] 09-16-2024 08:08-0400 Systolic blood pressure 160 mm[Hg] Dr. Mirian Ayoub MD Work Phone: [facility] 07-02-2024 09:05-0400 Body mass index (BMI) [Ratio] 24.2 kg/m2 Dr. Mirian Ayoub MD Work Phone: [facility] 07-02-2024 09:05-0400 Body temperature 98.2 [degF] Dr. Mirian Ayoub MD Work Phone: [facility] 07-02-2024 09:05-0400 Body weight 76.[address] Mirian Ayoub MD Work Phone: [facility] 07-02-2024 09:05-0400 Diastolic blood pressure 70 mm[Hg] Dr. Mirian Ayoub MD Work Phone: [facility] 07-02-2024 09:05-0400 Heart rate 63 /min Dr. Mirian Ayoub MD Work Phone: [facility] 07-02-2024 09:05-0400 Respiratory rate 16 /min Dr. Mirian Ayoub MD Work Phone: [facility] 07-02-2024 09:05-0400 SaO2% (BldA) [Mass fraction] 97 % Dr. Mirian Ayoub MD Work Phone: [facility] 07-02-2024 09:05-0400 Systolic blood pressure 115 mm[Hg] Dr. Mirian Ayoub MD Work Phone: [facility] 05-28-2024 09:14-0500 Diastolic blood pressure 77 mm[Hg] Dr. Mirian Ayoub MD Work Phone: [facility] 05-28-2024 09:14-0500 Heart rate 47 /min Dr. Mirian Ayoub MD Work Phone: [facility] 05-28-2024 09:14-0500 Systolic blood pressure 119 mm[Hg] Dr. Mirian Ayoub MD Work Phone: [facility] 05-28-2024 08:11-0500 Body mass index (BMI) [Ratio] 25 kg/m2 Dr. Mirian Ayoub MD Work Phone: [facility] 05-28-2024 08:11-0500 Body temperature 98.4 [degF] Dr. Mirian Ayoub MD Work Phone: [facility] 05-28-2024 08:11-0500 Body weight 78.[address] Mirian Ayoub MD Work Phone: [facility] 05-28-2024 08:11-0500 Respiratory rate 16 /min Dr. Mirian Ayoub MD Work Phone: [facility] 05-28-2024 08:11-0500 SaO2% (BldA) [Mass fraction] 97 % Dr. Mirian Ayoub MD Work Phone: [facility] 05-22-2024 08:15-0500 Body weight 77.[address] Mirian Ayoub MD Work Phone: [facility] 05-21-2024 09:54-0500 Body mass index (BMI) [Ratio] 24.3 kg/m2 Dr. Mirian Ayoub MD Work Phone: [facility] 05-20-2024 15:54-0500 Body mass index (BMI) [Ratio] 24.3 kg/m2 Dr. Mirian Ayoub MD Work Phone: [facility] 05-20-2024 15:54-0500 Body weight 77.[address] Mirian Ayoub MD Work Phone: [facility] 05-20-2024 15:54-0500 Diastolic blood pressure 83 mm[Hg] Dr. Mirian Ayoub MD Work Phone: [facility] 05-20-2024 15:54-0500 Heart rate 55 /min Dr. Mirian Ayoub MD Work Phone: [facility] 05-20-2024 15:54-0500 Respiratory rate 18 /min Dr. Mirian Ayoub MD Work Phone: [facility] 05-20-2024 15:54-0500 Systolic blood pressure 138 mm[Hg] Dr. Mirian Ayoub MD Work Phone: [facility] 10-15-2022 08:34-0400 Body height 177.[address] Mirian Ayoub Work Phone: [facility] 10-15-2022 08:34-0400 Body mass index (BMI) [Ratio] 24.8 kg/m2 Dr. Mirian Ayoub Work Phone: [facility] 10-15-2022 08:34-0400 Body temperature 97.2 [degF] Dr. Mirian Ayoub Work Phone: [facility] 10-15-2022 08:34-0400 Body weight 78.[address] Mirian Ayoub Work Phone: [facility] 10-15-2022 08:34-0400 Diastolic blood pressure 79 mm[Hg] Dr. Mirian Ayoub Work Phone: [facility] 10-15-2022 08:34-0400 Heart rate 58 /min Dr. Mirian Ayoub Work Phone: [facility] 10-15-2022 08:34-0400 Respiratory rate 16 /min Dr. Mirian Ayoub Work Phone: [facility] 10-15-2022 08:34-0400 SaO2% (BldA) [Mass fraction] 96 % Dr. Mirian Ayoub Work Phone: [facility] 10-15-2022 08:34-0400 Systolic blood pressure 124 mm[Hg] Dr. Mirian Ayoub Work Phone: [facility] Encounters Encounter Date Encounter Type Care Provider Facility Start: 10-28-2024 End: 10-28-[address] Mirian yAoub MD -[facility] Work Phone: Start: 10-28-2024 End: 10-28-[address] Mirian Ayoub MD Work Phone: -[facility] Start: 10-16-2024 End: 10-16-[address] Mirian Ayoub MD Work Phone: -Laboratory Start: 10-16-2024 End: 10-16-[address] Mirian Ayoub MD -Laboratory Work Phone: Start: 10-16-2024 End: 10-16-2024 ambulatory Mirian Ayoub Facility:[facility] Start: 09-16-2024 End: 09-16-[address] Mirian Ayoub MD -[facility] Work Phone: Start: 09-16-2024 End: 09-16-[address] Mirian Ayoub MD Work Phone: [facility] Work Phone: Start: 08-04-2024 ambulatory [facility] Facility :[facility] Start: 07-21-2024 End: 07-21-2024 ambulatory Anna Díaz [facility]ji Start: 07-02-2024 End: 07-02-[address] Mirian Ayoub MD -[facility] Work Phone: Start: 07-02-2024 End: 07-02-2024 ambulatory Mirian Ayoub Facility:[facility] Start: 05-28-2024 End: 05-28-[address] Mirian Ayoub MD -[facility] Work Phone: Start: 05-28-2024 End: 05-28-2024 ambulatory Mirian Ayoub Facility:[facility] Start: 05-22-2024 End: 05-22-2024 Admission to same day surgery center Dr. Robby Hastings MD -Carpentry In[employer]/Special Procedures Work Phone: Start: 05-22-2024 End: 05-22-2024 ambulatory Robby Hastings Facility:[facility] Start: 05-20-2024 End: 05-20-[address] Robby Hastings MD -[facility] Work Phone: Start: 05-20-2024 End: 05-20-2024 ambulatory Mirian Ayoub Facility:[facility] Start: 05-20-2024 End: 05-20-2024 ambulatory Robby Hastings Facility:[facility] Start: 05-18-[facility] Start: 05-18-2024 End: 05-18-2024 ambulatory [facility] Facility:[facility] Start: 05-14-2024 End: 05-14-2024 ambulatory Miriansera HemphillMega Facility:[facility] Start: 03-31-2024 End: 03-31-2024 ambulatory [facility] Facility:[facility] Start: 03-18-2024 End: 03-18-2024 ambulatory [facility] Facility:[facility] Start: 03-13-2024 End: 03-13-2024 ambulatory [facility] Facility:[facility] Start: 02-04-2024 End: 02-04-2024 ambulatory [facility] Facility:[facility] Start: 01-22-2024 End: 01-22-2024 ambulatory [facility] Facility:[facility] Start: 08-08-2023 End: 08-08-2023 ambulatory [facility] Work Phone: Start: 08-08-2023 End: 08-08-2023 Patient encounter procedure [facility], Specimen Work Phone: Start: 10-19-2022 End: 10-19-[address] Mirian Ayoub Work Phone: [facility] Work Phone: Start: 10-19-2022 End: 10-19-[address] Mirian Ayoub Work Phone: [facility] Work Phone: Start: 10-15-2022 End: 10-15-[address] Mirian Ayoub Work Phone: [facility] Work Phone: Start: 10-01-2022 End: 10-01-2022 ambulatory [facility] Work Phone: Start: 10-01-2022 End: 10-01-2022 Patient encounter procedure [facility] Work Phone: Start: 11-23-2021 Refill Florentin sutton MD Work Phone: [facility] [place] Comment on above: Refill Request Procedures Date Procedure Procedure Detail Performing Clinician Start: 10-16-2024 Prostate specific an tigen measurement Dr. Mirian Ayoub MD Work Phone: Comment on above: This test was perfor med using the [employer] tPSA method. Measured values of a patient sample can vary depending on the testing procedure used. PSA values determined on patient samples by different testing procedures cannot be used interchangeably. If there is a change in PSA assays while monitoring therapy, sequential testing should be performed to confirm baseline values. Start: 10-16-2024 Vitamin D, 25-hydrox y measurement Dr. Mirian Ayoub MD Work Phone: Comment on above: Vitamin D StatusDefi ciency: <20 ng/mL (50nmol/L)Insufficiency: 20-30 ng/mL (50-75 nmol/L)Sufficiency: 30-100 ng/mL (75-250 nmol/L)Toxicity: >100 ng/mL (>250 nmol/L) Start: 05-20-2024 Measurement of renal function Dr. Mirian Ayoub MD Work Phone: Comment on above: GFR Calc Start: 08-08-2023 Investigation of transfusion reaction Start: 08-08-2023 Nasopharyngeal Culture Start: 12-19-2020 Adult depression scr eening assessment Florentin Arceo MD Work Phone: Plan of Treatment Date Care Activity Detail Author Start: 12-18-2024 Diabetes Screening Diabetes Screening [facility] Start: 05-22-2024 Patient discharge [facility] Start: 04-08-2024 Advance Directive Discussion Advance Directive Discussion [facility] Start: 12-08-2023 Covid-19 Vaccine () Covid-19 Vaccine () [facility] Start: 12-08-2023 Influenza vaccination Influenza Vaccine (#1) [facility] Start: 07-14-2023 Urine microalbumin profile [facility] Start: 12-07-2022 DIABETES SCREEN DIABETES SCREEN [facility] Start: 12-21-2021 COLOGUARD (FIT-DNA) COLOGUARD (FIT-DNA) [facility] Start: 12-19-2021 Adult depression screening assessment DEPRESSION SCREENING [facility] Start: 12-07-2021 Influenza vaccination INFLUENZA (#1) [facility] Start: 06-17-2021 COVID-19 VACCINE (4 - Booster for Moderna series) COVID-19 VACCINE (4 - Booster for Moderna series) [facility] Start: 04-08-2021 ADVANCE DIRECTIVE DISCUSSION ADVANCE DIRECTIVE DISCUSSION [facility] Start: 2020 RSV Vaccine (1 - 1-dose 75+ series) RSV Vaccine (1 - 1-dose 75+ series) [facility] Start: 1963 Anxiety Screening Anxiety Screening [facility] Start: 1963 Depression Screening Depression Screening [facility] Catheterization of l eft heart [facility] CBC W Auto Different ial panel - Blood [facility] Cobalamin (Vitamin B 12) [Mass/volume] in Serum or Plasma [facility] Comprehensive metabo lic 1999 panel - Serum or Plasma [facility] Lipid 1995 panel - S norman or Plasma [facility] MR Brain contrast [facility] MRA Head vessels contrast [facility] Patient referral [facility] Work Phone: Prostate specific an tigen measurement [facility] Testosterone Free [Mass/volume] in Serum or Plasma [facility] Testosterone measurement [facility] Thyroid stimulating hormone measurement [facility] Vitamin D, 25-hydrox y measurement [facility] Immunizations Immunization Date Immunization Notes Care Provider Fa sallie 02-25-2023 influenza, injectabl e, quadrivalent, preservative free [facility] 02-25-2023 influenza virus vacc ine, unspecified formulation Anna Díaz LAB SUPPORT TECH [facility] 03-22-2022 Covid Moderna Bivale nt Booster; Translations: [Covid Moderna Bivalent Booster] [facility] 12-25-2021 influenza (HD-IIV4) vaccine, age 65+ yr, high dose, quadrivalent, PF (FLUZONE HIGH-DOSE) Anna Díaz LAB SUPPORT TECH [facility] 10-23-2021 Covid Moderna Bivale nt Booster; Translations: [Covid Moderna Bivalent Booster] [facility] 02-17-2021 Covid Moderna Bivale nt Booster; Translations: [Covid Moderna Bivalent Booster] [facility] 02-17-2021 COVID-19 vaccine, fu ll dose (MODERNA) Florentin Arceo MD Work Phone: [facility] Work Phone: 12-19-2020 influenza, high-dose , quadrivalent vaccine (FLUZONE HIGH DOSE QUADRIVALENT) Florentin Arceo MD Work Phone: [facility] Work Phone: 06-15-2020 Covid (Moderna) [facility] 05-19-2020 Covid (Moderna) [facility] 03-15-2020 zoster vaccine recombinant Florentin Arceo MD Work Phone: [facility] Work Phone: 12-17-2019 influenza, high-dose , quadrivalent vaccine (FLUZONE HIGH DOSE QUADRIVALENT) Florentin Arceo MD Work Phone: [facility] Work Phone: 12-04-2019 zoster vaccine recombinant Florentin Arceo MD Work Phone: [facility] Work Phone: 12-03-2019 zoster vaccine recombinant Florentin Arceo MD Work Phone: [facility] Work Phone: 03-06-2018 influenza, high dose seasonal, preservative-free Florentin Arceo MD Work Phone: [facility] Work Phone: 03-06-2017 influenza, high dose seasonal, preservative-free Florentin Arceo MD Work Phone: [facility] Work Phone: 01-28-2016 influenza, high dose seasonal, preservative-free Florentin Arceo MD Work Phone: [facility] 01-05-2016 pneumococcal conjuga te vaccine, 13 valent Florentin Arceo MD Work Phone: [facility] Work Phone: 02-03-2015 influenza, high dose seasonal, preservative-free Florentin Arceo MD Work Phone: [facility] 12-28-2013 influenza, high dose seasonal, preservative-free Florentin Arceo MD Work Phone: [facility] Work Phone: 07-13-2013 tetanus toxoid, redu ramona diphtheria toxoid, and acellular pertussis vaccine, adsorbed Florentin Arceo MD Work Phone: [facility] Work Phone: 02-21-2013 influenza virus vacc ine, unspecified formulation Florentin Arceo MD Work Phone: [facility] Work Phone: 01-09-2013 tetanus and diphther ia toxoids, adsorbed, preservative free, for adult use (2 Lf of tetanus toxoid and 2 Lf of diphtheria toxoid) Florentin Arceo MD Work Phone: [facility] Work Phone: 03-06-2012 influenza virus vacc ine, unspecified formulation Florentin Arceo MD Work Phone: [facility] Work Phone: 02-21-2011 pneumococcal polysaccharide vaccine, 23 valent Florentin Arceo MD Work Phone: [facility] Work Phone: 02-17-2011 influenza virus vacc ine, unspecified formulation Florentin Arceo MD Work Phone: [facility] Work Phone: 07-27-2010 zoster vaccine, live Florentin Arceo MD Work Phone: [facility] Work Phone: 01-09-2010 influenza virus vacc ine, unspecified formulation Florentin Arceo MD Work Phone: [facility] 05-10-2008 influenza virus vacc ine, unspecified formulation Florentin Arceo MD Work Phone: [facility] Work Phone: 05-09-2003 tetanus toxoid, adsorbed Luis Arceo MD Work Phone: [facility] Work Phone: Payers Date Payer Category Payer Self-pay [id number] 2023 Medicare [id number] 2023 Unknown [id number] 2010 Medicare [id number] Unknown [id number] 2.16.8 [id number] Unknown [id number] 2.16.8 [id number] Unknown [id number] 2.16.8 [id number] Unknown [id number] 2.16.8 [id number] Unknown [id number] 2.16.8 [id number] Unknown [id number] 2.16.8 [id number] Unknown [id number] 2.16.8 [id number] Unknown [id number] 2.16.8 [id number] Unknown [id number] 2.16.8 [id number] Unknown [id number] 2.16.8 [id number] Unknown [id number] 2.16.8 [id number] Unknown [id number] 2.16.8 [id number] Unknown [id number] 2.16.8 [id number] Unknown [id number] 2.16.8 [id number] Unknown [id number] 2.16.8 [id number] Unknown [id number] 2.16.8 [id number] Unknown [id number] 2.16.8 [id number] Unknown [id number] 2.16.8 [id number] Social History Date Type Detail Facility Start: 02-03-2015 End: 10-28-2024 Tobacco smoking status NHIS Never smoked tobacco [facility] Work Phone: Start: 02-03-2015 Tobacco use and exposure Smokeless tobacco non-user [facility] Work Phone: Start: 03-20-2021 End: 12-25-2021 Alcohol intake Current non-drinker of alcohol (finding) [facility] Start: 1945 Sex Assigned At Not on file C [facility] Start: 05-03-2022 End: 04-15-2023 Tobacco smoking status AKIS Unknown if ever smoked [facility] Start: 1945 Sex Assigned At Male W [facility] Start: 12-25-2021 End: 2022 History of Social function [facility] Start: 12-25-2021 End: 2022 Tobacco use panel [facility] Adult Depression Screening Assessment 0 [facility] Functional Status Date Assessment Result Facility 07-23-2014 Are you deaf, or do you have serious difficulty hearing No 07/23/2014 3:30 PM Elise Cardenas Cma No [facility] 07-23-2014 Are you blind, or do you have serious difficulty seeing, even when wearing glasses No 07/23/2014 3:30 PM Elise Cardenas C[facility] No [facility] 07-23-2014 Do you have serious difficulty walking or climbing stairs No 07/23/2014 3:30 PM Elise Cardenas Cma No [facility] 07-23-2014 Do you have difficul ty dressing or bathing No 07/23/2014 3:30 PM Elise Cardenas Cma No [facility] 07-23-2014 Because of a physica l, mental, or emotional condition, do you have difficulty doing errands alone such as visiting a physician's office or shopping No 07/23/2014 3:30 PM EDT Celiwendi MaciasElise No [facility] Mental Status Date Assessment Result Facility 07-23-2014 Because of a physica l, mental, or emotional condition, do you have serious difficulty concentrating, remembering, or making decisions No 07/23/2014 3:30 PM EDT Celiwendi MaciasElise No [facility] Clinical Notes 07-27-2010 to 07-21-2024 Anna Díaz LPN - 07/21/2024 4:03 PM EDT Note Date & Type Note Facility 07-21-2024 Note HNO ID: [id number] Author: ANNA DÍAZ LPN Service: ? Author [...] Díaz LPN July 21, 2024 4:03 PM [facility] 07-21-2024 History of Present illness Narrative POPULATION HEALTH NAVIGATION OUTREACH Action/FYI [...] 2024 4:03 PM documented in this encounter [facility] 07-02-2024 Evaluation note Diagnosis Onset Date Resolution Fatigue acute July 02 9:00am New onset headache acute July 02, 2024 9:00am Hypertension chronic July 02, 2024 9:00am GERD (gastroesophageal reflux disease) acute September 16, 2024 8:02am Hyperlipemia acute September 16 025 8:02am Hypertension chronic September 16, 025 8:02am [facility] Work Phone: 1(534) 516-967703-27-2025 Evaluation note* Diagnosis Onset Date Resolution Status Admit Date Fatigue acute July 02 9:00am New onset headache acute July 02, 2024 9:00am Hypertension chronic July 02, 2024 9:00am GERD (gastroesophageal reflu x disease) acute September 16, 2024 8:02am Hyperlipemia acute September 16 025 8:02am Hypertension chronic September 16 025 8:02am Rash noneactive October 28 11:02am [facility] Work Phone: 1(134) 112-420802-12-2025 Evaluation note* Diagnosis Onset Date Resolution Status Admit Date Abnormal stress test acute Febr uary 2024 3:50pm Fatigue acute May 28, 2024 8:01am Hypertension chronic May 8:01am Acute URI resolved May 28, 2024 8:01am Fatigue acute July 02 9:00am New onset headache acute July 02, 2024 9:00am Hypertension chronic July 02, 2024 9:00am GERD (gastroesophageal reflu x disease) acute September 16, 2024 8:02am Hyperlipemia acute September 16 025 8:02am Hypertension chronic September 16 025 8:02am [facility] Work Phone: 1(297) 103-978008-18-2022 Miscellaneous Notes* Telephone Encounter - Anna E Arjun SANTAMARIA - 11/23/2021 3:34 PM EDT Patient has been identified by name and [...] Please advise. Thank you. Anna Díaz LPN * Telephone Encounter - Deborah Cobos Pss - 11/23/2021 3:27 PM EDT Patient has been identified by name and date of : Yes Requested Prescriptions Pending Prescriptions Disp Refills atorvastatin (LIPITOR) 10 mg tablet 18 tablet 3 Sig: TAKE ONE-HALF TABLET BY MOUTH 3 TIMES A WEEK RX INSTRUCTIONS: Patient aware RX will be sent to pharmacy. No need to notify patient. Deborah Cobos Pss [facility] History of Past illness Narrative* Problem Noted Date Resolved Date Testicular hypofunction [...] of this encounter (statuses as of 11/24/2021) [facility] note* Diagnosis Mixed hyperlipidemia documented in this encounter [facility] noteNo assessment information [facility]WMer[facility] Work Phone: Evaluation note* Diagnosis Onset Date Resolution Status Fatigue acute GERD (gastroesophageal reflux disease) acute Hyperlipemia acute Hypogonadism acute 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 3:50pm DID NOT SEE ORDER YET JUST CAME FROM OFF ICE May 20, 2024 4:35pm ABNORMAL STRESS TEST May 22, 2024 7:59am Review Results, Cough, Fatigue May 28, 2024 8:01am Elevated BP, Headaches, Lightheadedness July 02, 2024 9:00am 6 M September 16, 2024 8:02 am Reason for Visit Admit Date Abnormal stress test May 20, 2024 3:50pm Fatigue May 28, 2024 8:01am Hypertension May 28, 2024 8:01am Acute URI May 28, 2024 8:01am Fatigue July 02, 2024 9:0 0am New onset headache July 02, 2024 9:0 0am Hypertension July 02, 2024 9:0 0am GERD (gastroesophageal reflux disease) [facility] 2024 8:02am Hyperlipemia September 16, 2024 8:02 am Hypertension September 16, 2024 8:02 am Chief Complaint Admit Date Elevated BP, Headaches, Lightheadedness July 02, 2024 9:00am 6 M FU September 16, 2024 8:02 am EORDERS October 16, 2024 8:31 am Reason for Visit Admit Date Fatigue July 02, 2024 9:0 0am New onset headache July 02, 2024 9:0 0am Hypertension July 02, 2024 9:0 0am GERD (gastroesophageal reflux disease) [facility] 2024 8:02am Hyperlipemia September 16, 2024 8:02 am Hypertension September 16, 2024 8:02 am Chief Complaint Admit Date Elevated BP, Headaches, Lightheadedness July 02, 2024 9:00am 6 M FU September 16, 2024 8:02 am EORDERS October 16, 2024 8:31 am Rash October 28, 2024 11:0 2am Reason for Visit Admit Date Fatigue July 02, 2024 9:0 0am New onset headache July 02, 2024 9:0 0am Hypertension July 02, 2024 9:0 0am GERD (gastroesophageal reflux disease) [facility] 2024 8:02am Hyperlipemia September 16, 2024 8:02 am Hypertension September 16, 2024 8:02 am Rash October 28, 2024 11:0 2am Family History No Family History Records Found [...] or prosecute any alcohol or drug abuse patient.[facility] the event this information is protected by the Federal Confidentiality of Alcohol and Drug Abuse Patient Records regulations: The Federal rules restrict any use of the information to criminally investigate or prosecute any alcohol or drug abuse patient.[facility] Reason for Visit (unrecogniz ed section and content) Reason Comments Refill Request Care Teams (unrecognized sec tion and content) 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 Nguyễn Gomez MD Family Provider Active Dr. Mirian Ayoub MD Primary Care Provider Active Team Status: Inactive Member Role Status Dates Dr. Mirian Ayoub MD Primary Care Pro vider, Attending Provider, Referring Provider Active Team Status: Inactive Member Role Status Dates Dr. Mirian Ayoub MD Primary Care Provider, Attendi Provider Active Team Status: Inactive Member Role [...] Status: Inactive Member Role Status Dates Dr. Mriian Ayoub MD Primary Care Provider Active Start: [...] September 16, 2024 End: September 16, 2024 Team Status: Active Member Role/Relationship Status Dates Dr. Mirian Ayoub MD Primary Care Provider Active Team Status: Inactive Member Role/Relationship Status Dates Dr. Mirian Ayoub MD Primary Care Provider Active Start: July 02, 2024 End: July 02, 2024 Dr. Mirian Ayoub MD Attending Provider Active Start: July 02, 2024 End: July 02, 2024 Team Status: Inactive Member Role/Relationship Status Dates Dr. Mirian Ayoub MD Primary Care Provider Active Start: September 16, 2024 End: September 16, 2024 Dr. Mirian Ayoub MD Attending Provider Active Start: September 16, 2024 End: September 16, 2024 Team Status: Inactive Member Role/Relationship Status Dates Dr. Mirian Ayoub MD Primary Care Provider Active Start: October 16, 2024 End: October 16, 2024 Dr. Mirian Ayoub MD Attending Provider Active Start: October 16, 2024 End: October 16, 2024 Dr. Mirian Ayoub MD Referring Provider Active Start: October 16, 2024 End: October 16, 2024 Team Status: Inactive Member Role/Relationship Status Dates Dr. Mirian Ayoub MD Primary Care Provider Active Start: October 28, 2024 End: October 28, 2024 Dr. Mirian Ayoub MD Attending Provider Active Start: October 28, 2024 End: October 28, 2024 Goals (unrecognized section and content) Goals [...] section and content) DATE CREATED AUTHOR 07/23/2024 [facility] DATE CREATED AUTHOR AUTHOR'S ORGANIZ ATION 10/29/2024 [facility] FOR RECORDS PERTAINING TO PATIENTS WHO ARE [...] BE BASED ON THE PRIMARY CLINICAL RECORDS. [facility] [employer] provides no warranty or guarantee of the accuracy or completeness of information in this document.
== END | disposition home or self-care (01) ==
LOC: CT 13:52
PROVIDERS: PCP Internal Medicine; Referring Provider Otolaryngology; Visit Provider Otolaryngology
DX: J32.8 Other chronic sinusitis (principal)
CPT/HCPCS: 70486